=== PATIENT | female | born 1935 | race Caucasian/White ===

== ENCOUNTER 2016-08-11 15:42 | Inpatient (IN) | payer MEDICARE, OTHER ==
[~2016-08-11] VITALS: Ht 149.9 cm; Wt 60.4 kg
[2016-08-11] VITALS (8 sets, daily range): BP systolic 113–139; BP diastolic 40–54; PULSE 60–82; RESP 16–20; TEMP 96.4–98.4; O2SAT 95–100
[~2016-08-11 15:42] MED LIST: BROV15NE NEB; COUM7.5T PO; FURO1TAB93 PO; FURO20TA PO; IRONTAB5 PO; MONT10 PO; OMEP20CA5 PO; PRAV40 PO; RAMI2.5C29 PO; SERT-132 PO; SPIR25 PO; TRAM50TA PO
[2016-08-11] MEDS ORDERED: FERR325T PO (16:18)
[2016-08-11] MEDS ORDERED: PRAV20TA2 PO (16:18)
[2016-08-11] MEDS ORDERED: SPIR25TA PO (16:18)
[2016-08-11] MEDS ORDERED: APIX2.5T PO (16:18)
[2016-08-11] MEDS ORDERED: RAMI2.5C PO (16:18)
[2016-08-11] MEDS ORDERED: OMEP20TA PO (16:18)
[2016-08-11] MEDS ORDERED: SERT-132 PO (16:18)
--- NOTE | 2016-08-11 16:19 | PD ---
HPI Chief Complaint: Abnormal Results Time Seen by Provider: 16:09 Travel History International Travel<30 days: No Contact w/Intl Traveler<30days: No Traveled to known affect area: No History of Present Illness HPI 81-year-old female with history of multiple medical issues, nursing notes reviewed, CHF, lymphoma, COPD, presents to the ER sent in by Dr. Zamudio for ongoing worsening of dyspnea on exertion and shortness of breath, and lab work today showing low sodium of 119. She states she has been little jittery but denies any chest pains, fevers, or any other symptoms. Family states that they had recently changed her diuretics from furosemide to a new med. Symptoms worsen with movement and walking. Modifying Factors: None Associated Signs & Symptoms: Low sodium, shortness of breath Risk Factors: CHF and COPD history PFSH Past Medical History Hx Anticoagulant Therapy: Yes (ELIQUIS) Arthritis: Yes (ELBOWS) Asthma: No Blood Disorders: No Depression: Yes Heart Rhythm Problems: Yes Cancer: Yes (LYMPHOMA) Cardiovascular Problems: Yes (HTN) High Cholesterol: No Chemotherapy: Yes Chest Pain: Yes (HEAVINESS) Congestive Heart Failure: Yes (PACEMAKER) COPD: Yes Cerebrovascular Accident: No Coronary Artery Disease: Yes Diabetes: No Diminished Hearing: No Endocrine: No Gastrointestinal Disorders: No GERD: Yes (resolved) Glaucoma: No Genitourinary: Yes (DRIBBLING WITH COUGH) Headaches: Yes Hepatitis: No Hiatal Hernia: No Hypertension: Yes Immune Disorder: No Implanted Vascular Access Dvce: Yes Kidney Stones: No Musculoskeletal: Yes (BILATERAL HIP REPLACEMENT) Neurologic: No Psychiatric: No Reproductive: Yes (BILATERAL OVARIES REMOVAL) Respiratory: Yes (ASTHMA, COPD) Integumentary: No Migraines: No Radiation Therapy: No Renal Failure: No Seizures: No Sleep Apnea: No Thyroid Disease: No Ulcer: No Influenza Vaccination: Yes ?: Not Menopausal: Yes Past Surgical History Abdominal Surgery: Yes (GALLBLADDER REMOVED, APPENDIX REMOVED, ) Appendectomy: Yes Body Medical Devices: PACEMAKER, BILATERAL HIP REPLACEMENT, PORT Cardiac Surgery: Yes (REPAIR OF HEART VALVE) Cholecystectomy: Yes Coronary Artery Bypass Graft: Yes (2007) Eye Surgery: Yes (BILATERAL CATARACTS) Gynecologic Surgery: Yes (OVARY AND TUBE REMOVED) Hysterectomy: Yes Joint Replacement: Yes Pacemaker: Yes Thoracic Surgery: Yes (VALVE) Other Surgery: Yes (RIGHT PORT, GALL BLADDER, HIP) Social History Alcohol Use: No Tobacco Use: No Substance Use: No Allergies-Medications (Allergen,Severity, Reaction): Coded Allergies: Sulfa (Verified Allergy, Severe, SWELLING, 08/11/16) Reported Meds & Prescriptions Reported Meds & Active Scripts Active Reported Spironolactone 25 Mg Tab 25 Mg PO BIDPC Sertraline (Sertraline HCl) 50 Mg Tab 50 Mg PO DAILY Ramipril 2.5 Mg Cap 2.5 Mg PO DAILY Pravastatin 20 Mg Tab 20 Mg PO DAILY Omeprazole 20 Mg Tab 20 Mg PO EVERY OTHER DAY Ferrous Sulfate 325 Mg Tab 325 Mg PO BID Eliquis (Apixaban) 2.5 Mg Tab 2.5 Mg PO BID Review of Systems Except as stated in HPI: all other systems reviewed are Neg Physical Exam Narrative GENERAL: Well-nourished, well-developed elderly white female patient in no acute distress at rest. Awake and oriented 3. SKIN: Warm and dry. HEAD: Normocephalic. EYES: No scleral icterus. No injection or drainage. NECK: Supple, trachea midline. CARDIOVASCULAR: Regular rate and rhythm without murmurs, gallops, or rubs. RESPIRATORY: Breath sounds equal with breath sounds bilaterally. Mild accessory muscle use. GASTROINTESTINAL: Abdomen soft, non-tender, nondistended. MUSCULOSKELETAL: No cyanosis. Bilateral lower leg swelling of the legs. BACK: Nontender without obvious deformity. No CVA tenderness. Data Data Last Documented VS Vital Signs Date Time Temp Pulse Resp B/P Pulse Ox O2 Delivery O2 Flow Rate FiO2 08/11/16 16:08 95 Room Air 08/11/16 16:08 82 18 139/40 08/11/16 15:49 97.9 Orders Complete Blood Count With Diff (08/11/16 16:09) Comprehensive Metabolic Panel (08/11/16 16:09) Magnesium (Mg) (08/11/16 16:09) B-Type Natriuretic Peptide (08/11/16 16:13) Chest, Single Ap (08/11/16 16:13) Labs Laboratory Tests Test 08/11/16 17:03 White Blood Count 6.4 TH/MM3 Red Blood Count 3.60 MIL/MM3 Hemoglobin 8.2 GM/DL Hematocrit 25.9 % Mean Corpuscular Volume 71.8 FL Mean Corpuscular Hemoglobin 22.7 PG Mean Corpuscular Hemoglobin 31.5 % Concent Red Cell Distribution Width 18.3 % Platelet Count 267 TH/MM3 Mean Platelet Volume 6.6 FL Neutrophils (%) (Auto) 77.1 % Lymphocytes (%) (Auto) 11.1 % Monocytes (%) (Auto) 10.4 % Eosinophils (%) (Auto) 1.2 % Basophils (%) (Auto) 0.2 % Neutrophils # (Auto) 4.9 TH/MM3 Lymphocytes # (Auto) 0.7 TH/MM3 Monocytes # (Auto) 0.7 TH/MM3 Eosinophils # (Auto) 0.1 TH/MM3 Basophils # (Auto) 0.0 TH/MM3 CBC Comment DIFF FINAL Differential Comment Sodium Level 125 MEQ/L Potassium Level 4.6 MEQ/L Chloride Level 91 MEQ/L Carbon Dioxide Level 23.1 MEQ/L Anion Gap 11 MEQ/L Blood Urea Nitrogen 24 MG/DL Creatinine 1.00 MG/DL Estimat Glomerular Filtration 53 ML/MIN Rate Random Glucose 110 MG/DL Calcium Level 7.6 MG/DL Magnesium Level 2.1 MG/DL Total Bilirubin 0.6 MG/DL Aspartate Amino Transf 8 U/L (AST/SGOT) Alanine Aminotransferase 7 U/L (ALT/SGPT) Alkaline Phosphatase 86 U/L B-Type Natriuretic Peptide 910 PG/ML Total Protein 5.5 GM/DL Albumin 3.0 GM/DL MDM Medical Decision Making Medical Screen Exam Complete: Yes Emergency Medical Condition: Yes Medical Record Reviewed: Yes Interpretation(s) EKG shows a ventricularly paced rhythm at a rate of 61 bpm. Laboratory Tests Test 08/11/16 17:03 Red Blood Count 3.60 MIL/MM3 (4.00-5.30) Hemoglobin 8.2 GM/DL (11.6-15.3) Hematocrit 25.9 % (35.0-46.0) Mean Corpuscular Volume 71.8 FL (80.0-100.0) Mean Corpuscular Hemoglobin 22.7 PG (27.0-34.0) Mean Corpuscular Hemoglobin 31.5 % Concent (32.0-36.0) Red Cell Distribution Width 18.3 % (11.6-17.2) Mean Platelet Volume 6.6 FL (7.0-11.0) Neutrophils (%) (Auto) 77.1 % (16.0-70.0) Monocytes (%) (Auto) 10.4 % (0.0-8.0) Lymphocytes # (Auto) 0.7 TH/MM3 (1.0-4.8) Sodium Level 125 MEQ/L (136-145) Chloride Level 91 MEQ/L (98-107) Blood Urea Nitrogen 24 MG/DL (7-18) Estimat Glomerular Filtration 53 ML/MIN (>89) Rate Random Glucose 110 MG/DL (74-106) Calcium Level 7.6 MG/DL (8.5-10.1) Aspartate Amino Transf 8 U/L (15-37) (AST/SGOT) Alanine Aminotransferase 7 U/L (10-53) (ALT/SGPT) B-Type Natriuretic Peptide 910 PG/ML (0-100) Total Protein 5.5 GM/DL (6.4-8.2) Albumin 3.0 GM/DL (3.4-5.0) Differential Diagnosis Dyspnea on exertion, jitteriness, leg swelling, low sodiumrule out other blood flight abnormalities, dehydration, versus metabolic issues versus CHF versus pneumonia Narrative Course EKG shows paced rhythm. Chest x-rays showing signs of CHF. BNP is 900. Her sodium is 125. 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 She apparently has had problems with outpatient management. He has which are from Lasix to spironolactone. At this point, the case was discussed with Dr. Cleaning for admission. Diagnosis Primary Impression: CHF exacerbation Additional Impression: Hyponatremia Admitting Information Admitting Physician Requests: Admit Lucia Cleaning MD Aug 11, 2016 16:19
--- NOTE | 2016-08-11 17:03 | RADHPO ---
EXAM DATE/TIME: 08/11/2016 16:28 [facility] COMPARISON: CHEST SINGLE AP, March 31, 2016, 12:56. INDICATIONS : Shortness of breath. MEDICAL HISTORY : Hypertension. Congestive heart failure. Chronic obstructive pulmonary disease. CAD, Irregular hea rtbeat, Asthma, Arthritis, Lymphoma SURGICAL HISTORY : Pacemaker. Cholecystectomy. Appendectomy. CABG, Hysterectomy, Bilateral hip replacements, Infuse-A-Po rt ENCOUNTER: Initial ACUITY: 3 months PAIN SCORE: 0/10 LOCATION: Bilateral chest FINDINGS: Median sternotomy wires are noted status post cardiac surgery. The heart is enlarged. Moderate pulmon janae vascular congestion is noted bilaterally. A right internal jugular Boupjn-l-Mctw has its tip in t he superior vena cava. Cardiac valve replacement is again noted. Left subclavian pacemaker has its t ip in the right ventricle. CONCLUSION: 1. Moderate pulmonary vascular congestion bilaterally. 2. Cardiomegaly. Kike Cedillo MD on August 11, 2016 at 17:00 Board Certified Radiologist. This report was verified electronically.
[2016-08-11 17:06] LABS: AUTOMATED NEUTROPHIL # 4.9 TH/MM3 (1.8-7.7); BASOPHIL % 0.2 % (0.0-2.0); EOSINOPHIL # 0.1 TH/MM3 (0-0.4); EOSINOPHIL % 1.2 % (0.0-4.0); HEMATOCRIT 25.9 % (35.0-46.0); LYMPH % 11.1 % (9.0-44.0); LYMPHOCYTE # 0.7 TH/MM3 (1.0-4.8); MEAN CELL VOLUME 71.8 FL (80.0-100.0); MEAN CORPUSCULAR HEMOGLOBIN 22.7 PG (27.0-34.0); MEAN CORPUSCULAR HGB CONC 31.5 % (32.0-36.0); MONO % 10.4 % (0.0-8.0); NEUT % 77.1 % (16.0-70.0); PLATELET COUNT 267 TH/MM3 (150-450); RED CELL DISTRIBUTION WIDTH 18.3 % (11.6-17.2); WHITE BLOOD COUNT 6.4 TH/MM3 (4.0-11.0)
[2016-08-11 17:13] LABS: HEMO FLAGS DIFF FINAL
[2016-08-11 17:15] LABS: CHLORIDE 91 MEQ/L (98-107); POTASSIUM 4.6 MEQ/L (3.5-5.1); SODIUM (NA) 125 MEQ/L (136-145)
[2016-08-11 17:18] LABS: ANION GAP 11 MEQ/L (5-15); BICARBONATE 23.1 MEQ/L (21.0-32.0); BLOOD UREA NITROGEN 24 MG/DL (7-18); MAGNESIUM 2.1 MG/DL (1.5-2.5)
[2016-08-11 17:21] LABS: ALT (GPT) 7 U/L (10-53); AST (GOT) 8 U/L (15-37); GLOMERULAR FILTRATION RATE 53 ML/MIN (>89)
[2016-08-11 17:23] LABS: TOTAL BILIRUBIN ADULT 0.6 MG/DL (0.2-1.0)
[2016-08-11 17:24] LABS: ALKALINE PHOSPHATASE 86 U/L (45-117)
[2016-08-11] MEDS ORDERED: SODIUM CHLORIDE 0.9% FLUSH 5 ML FLUSH IVF PRN (18:15)
[2016-08-11 18:49] LABS: CRENATED RBCS 1+ (NORMAL); KERATOCYTES 1+ (NORMAL); OVALOCYTES 1+ (NORMAL)
[2016-08-11 18:50] LABS: PLATELET ESTIMATE SMEAR NORMAL (NORMAL); PLATELET MORPHOLOGY NORMAL (NORMAL); SCAN/DIFF AUTO DIFF CONFIRMED
[2016-08-12] VITALS (10 sets, daily range): BP systolic 102–162; BP diastolic 50–68; PULSE 61–111; RESP 18–21; TEMP 97–100.6; O2SAT 92–96
[2016-08-12 07:56] LABS: POTASSIUM 4.5 MEQ/L (3.5-5.1)
[2016-08-12 07:59] LABS: BICARBONATE 23.3 MEQ/L (21.0-32.0)
[2016-08-12] MEDS ORDERED: Infusaport/Implanted VAD PRN NS Lock Flush IVF (08:15)
[2016-08-12] MEDS: SODIUM CHLORIDE 0.9% FLUSH 5 ML FLUSH IVF SCH ×2 (09:00→21:51)
[2016-08-12] MEDS ORDERED: FUROSEMIDE 40 MG/4 ML VIAL IVP SCH (09:00)
[2016-08-12] MEDS ORDERED: INFLUENZA VIRUS VACCINE (QUADRIVALENT) 0.5 ML SYR IM ONE (09:00)
[2016-08-12] MEDS ORDERED: TORS20TA PO (09:45)
[2016-08-12] MEDS ORDERED: TORS5TAB2 PO (09:45)
--- NOTE | 2016-08-12 11:14 | HHI.HP ---
[facility] Primary Care Physician Alfonso Tolliver MD Admission Diagnosis CHF exacerbation/hyponatremia Diagnoses: Chief Complaint: Abnormal labs per her primary opening machine cleaner Travel History International Travel<30 Days: No Contact w/Intl Traveler <30 Da: No Traveled to Known Affected Are: No History of Present Illness This patient is a 81-year-old female with a known history of congestive heart failure. Patient was seen by her opening machine cleaner did have labs drawn as an outpatient. Of note her sodium was low and she was told to come to the hospital. Here her sodium is 123 and the patient reports increasing edema, increased shortness of breath and some chest tightness with deep breathing. She has minimal orthopnea. Her lower extremity swelling has improved overnight. Patient has refused Lasix saying that her opening machine cleaner just discontinued her Lasix and put her on torso 8. She does have a history of permanent has Medicare and a mitral valve repair which have been followed by her opening machine cleaner. Patient was no fevers or chills. She has minimal activity at baseline uses a wheelchair or walker at home and does not ambulate more than 20 feet at home. Patient was admitted to the hospital due to signs and symptoms consistent with congestive heart failure. Her chest x-ray on my review does show some basilar congestion her BNP is elevated. Patient also has hyponatremia which is likely due to her CHF. Review of Systems Constitutional: COMPLAINS OF: Fatigue, DENIES: Diaphoretic episodes, Fever, Weight gain, Weight loss, Chills, Dizziness, Change in appetite, Night Sweats Endocrine: DENIES: Abnorml menstrual pattern, Heat/cold intolerance, Polydipsia , Polyuria, Polyphagia Ears, nose, mouth, throat: DENIES: Tinnitus, Hearing loss, Vertigo, Nasal discharge, Oral lesions, Throat pain, Hoarseness, Ear Pain, Running Nose, Epistaxis, Sinus Pain, Toothache, Odynophagia Cardiovascular: COMPLAINS OF: Dyspnea on Exertion, Lower Extremity Edema Gastrointestinal: DENIES: Abdominal pain, Black stools, Bloody stools, Constipation, Diarrhea, Nausea, Vomiting, Difficulty Swallowing, Anorexia Genitourinary: DENIES: Abnormal vaginal bleeding, Dysmenorrhea, Dyspareunia, Sexual dysfunction, Urinary frequency, Urinary incontinence, Urgency, Hematuria , Dysuria, Nocturia, Vaginal discharge Musculoskeletal: DENIES: Joint pain, Muscle aches, Stiffness, Joint Swelling, Back pain, Neck pain Integumentary: DENIES: Abnormal pigmentation, Pruritus, Rash, Nail changes, Breast masses, Breast skin changes, Nipple discharge Hematologic/lymphatic: DENIES: Bruising, Lymphadenopathy Immunologic/allergic: DENIES: Eczema, Urticaria Neurologic: DENIES: Abnormal gait, Headache, Localized weakness, Paresthesias, Seizures, Speech Problems, Tremor, Poor Balance Psychiatric: DENIES: Anxiety, Confusion, Mood changes, Depression, Hallucinations, Agitation, Suicidal Ideation, Homicidal Ideation, Delusions Past Family Social History Past Medical History Congestive heart failure Iron deficiency anemia copd Past Surgical History PPM MV repair Reported Medications Reviewed in the medical record, recently exchanged Lasix for torsemide per her opening machine cleaner Allergies: Coded Allergies: Sulfa (Verified Allergy, Severe, SWELLING, 08/11/16) Active Ordered Medications Reviewed in the medical record Family History Mother at 98) hypertension Sudafed at 93 Social History No tobacco or alcohol dependency, lives with her daughter Physical Exam Vital Signs Vital Signs Date Time Temp Pulse Resp B/P Pulse Ox O2 Delivery O2 Flow Rate FiO2 08/12/16 08:00 97.7 63 19 122/55 92 08/12/16 04:25 97.0 69 20 102/60 95 08/12/16 00:10 97.4 61 18 119/53 94 08/11/16 22:29 95 21 08/11/16 21:15 60 08/11/16 20:52 96.4 61 20 113/46 95 08/11/16 20:32 98.4 62 18 122/50 96 08/11/16 19:13 64 18 135/50 95 Room Air 08/11/16 19:13 Room Air 08/11/16 18:31 61 18 124/54 100 Room Air 08/11/16 16:08 95 Room Air 08/11/16 16:08 82 18 139/40 95 Room Air 08/11/16 15:49 97.9 78 16 137/44 97 Physical Exam GENERAL: This is a well-nourished, well-developed patient, in no apparent distress. SKIN: No rashes, ecchymoses or lesions. Cool and dry. HEAD: Atraumatic. Normocephalic. No temporal or scalp tenderness. EYES: Pupils equal round and reactive. Extraocular motions intact. No scleral icterus. No injection or drainage. ENT: Nose without bleeding, purulent drainage or septal hematoma. Throat without erythema, tonsillar hypertrophy or exudate. Uvula midline. Airway patent. NECK: Trachea midline. No JVD or lymphadenopathy. Supple, nontender, no meningeal signs. CARDIOVASCULAR: Regular rate and rhythm without murmurs, gallops, or rubs. RESPIRATORY: Clear to auscultation. Breath sounds equal bilaterally. No wheezes , rales, or rhonchi. GASTROINTESTINAL: Abdomen soft, non-tender, nondistended. No hepato-splenomegaly , or palpable masses. No guarding. MUSCULOSKELETAL: Extremities without clubbing, cyanosis, or edema. No joint tenderness, effusion, or edema noted. No calf tenderness. Negative Homans sign bilaterally. NEUROLOGICAL: Awake and alert. Cranial nerves II through XII intact. Motor and sensory grossly within normal limits. Five out of 5 muscle strength in all muscle groups. Normal speech. Laboratory Laboratory Tests Test 08/11/16 08/12/16 17:03 06:50 White Blood Count 6.4 Red Blood Count 3.60 Hemoglobin 8.2 Hematocrit 25.9 Mean Corpuscular Volume 71.8 Mean Corpuscular Hemoglobin 22.7 Mean Corpuscular Hemoglobin 31.5 Concent Red Cell Distribution Width 18.3 Platelet Count 267 Mean Platelet Volume 6.6 Neutrophils (%) (Auto) 77.1 Lymphocytes (%) (Auto) 11.1 Monocytes (%) (Auto) 10.4 Eosinophils (%) (Auto) 1.2 Basophils (%) (Auto) 0.2 Neutrophils # (Auto) 4.9 Lymphocytes # (Auto) 0.7 Monocytes # (Auto) 0.7 Eosinophils # (Auto) 0.1 Basophils # (Auto) 0.0 CBC Comment DIFF FINAL Differential Comment AUTO DIFF CONFIRMED Platelet Estimate NORMAL Platelet Morphology Comment NORMAL Basophilic Stippling FAINT Ovalocytes 1+ Crenated Cell 1+ Keratocytes 1+ Sodium Level 125 128 Potassium Level 4.6 4.5 Chloride Level 91 95 Carbon Dioxide Level 23.1 23.3 Anion Gap 11 10 Blood Urea Nitrogen 24 23 Creatinine 1.00 0.98 Estimat Glomerular Filtration 53 54 Rate Random Glucose 110 93 Calcium Level 7.6 7.8 Magnesium Level 2.1 Total Bilirubin 0.6 Aspartate Amino Transf 8 (AST/SGOT) Alanine Aminotransferase 7 (ALT/SGPT) Alkaline Phosphatase 86 B-Type Natriuretic Peptide 910 Total Protein 5.5 Albumin 3.0 Thyroid Stimulating Hormone 3.780 3rd Gen Result Diagram: 08/11/16 1703 08/12/16 0650 Imaging Last Impressions Chest X-Ray 08/11/16 1613 Signed Impressions: Service Date/Time: Thursday, August 11, 2016 16:28 - CONCLUSION: 1. Moderate pulmonary vascular congestion bilaterally. 2. Cardiomegaly. Kike Cedillo MD Assessment and Plan Problem List: (1) CHF exacerbation ICD Code: I50.9 Status: Acute Plan: likely diastolic HF with acute exacerbation Continue patient's home medications Patient education On ACEi, BB, torsemide Echo 2013 reviewed repeat pending (2) Hyponatremia ICD Code: E87.1 Status: Acute Plan: Likely due to fluid imbalance. We'll continue with diuresis and follow clinically (3) Iron deficiency anemia ICD Code: D50.9 Status: Acute Plan: HG stable cont PO iron Physician Certification 2 Midnight Certification Type: Admission for Inpatient Services Order for Inpatient Services The services are ordered in accordance with Medicare regulations or non- Medicare payer requirements, as applicable. In the case of services not specified as inpatient-only, they are appropriately provided as inpatient services in accordance with the 2-midnight benchmark. Estimated LOS (days): 3 3 days is the estimated time the patient will need to remain in the hospital, assuming treatment plan goals are met and no additional complications. Post-Hospital Plan: [facility] Jacki Cleaning MD Aug 12, 2016 11:14
[2016-08-12] MEDS: SPIRONOLACTONE 25 MG TAB PO SCH ×2 (11:50→17:28)
[2016-08-12] MEDS: SERTRALINE HCL 50 MG TAB PO SCH (11:50)
[2016-08-12] MEDS: FERROUS SULFATE 325 MG (65 MG ELEMENTAL IRON) TAB PO SCH ×2 (11:51→21:51)
[2016-08-12] MEDS: APIXABAN 2.5 MG TABLET PO SCH ×2 (11:51→21:51)
[2016-08-12] MEDS: PRAVASTATIN SOD 20 MG TAB PO SCH (11:51)
[2016-08-12] MEDS: TORSEMIDE 20 MG TAB PO SCH (11:51)
[2016-08-12] MEDS: RESP: ALBUTEROL 2.5 MG/IPRATROPIUM 0.5 MG NEB (SCH) NEB ×2 (11:55→20:05)
[2016-08-12] MEDS: RAMIPRIL 2.5 MG CAP PO SCH (14:35)
--- NOTE | 2016-08-12 16:42 | EKG ---
Date Performed: 08/11/2016 Time Performed: 15:56:50 PTAGE: 81 years EKG: Ventricular pacing with underlying atrial fibrillation/flutter Pacemaker rhythm - no furthe r analysis Abnormal ECG PREVIOUS TRACING : 07/20/2014 12.17 Since previous tracing, no significant change noted DOCTOR: Artis Hart Interpretating Date/Time 08/12/2016 16:41:44
[2016-08-13 00:48] VITALS: BP 100/61; PULSE 60; RESP 20; TEMP 98.6; O2SAT 95
[2016-08-13 04:00] VITALS: BP 110/63; PULSE 62; RESP 18; TEMP 98; O2SAT 96
--- NOTE | 2016-08-13 07:09 | HHI.PR ---
Subjective Remarks Patient seen in room in follow up for mild chf exacerbation and hyponatremia Doing well at bedside No SOB, edema better Objective Vitals Vital Signs Date Time Temp Pulse Resp B/P Pulse Ox O2 Delivery O2 Flow Rate FiO2 08/13/16 04:00 98.0 62 18 110/63 96 08/13/16 00:48 98.6 60 20 100/61 95 08/12/16 20:55 98.8 64 18 111/50 93 08/12/16 20:06 96 21 08/12/16 19:59 67 08/12/16 16:47 62 08/12/16 16:00 97.3 62 19 124/50 93 08/12/16 12:00 97.3 65 18 117/50 95 08/12/16 11:58 96 21 08/12/16 08:00 97.7 63 19 122/55 92 I/O 08/12/16 08/12/16 08/12/16 08/13/16 08/13/16 08/13/16 07:00 15:00 23:00 07:00 15:00 23:00 Intake Total 720 ml 0 ml Output Total 450 ml Balance 720 ml -450 ml Intake Oral 720 ml IV Total 0 ml 0 ml Output Urine Total 450 ml # Voids 7 # Bowel Movements 2 Result Diagram: 08/11/16 1703 08/12/16 0650 Objective Remarks GENERAL: This is a well-nourished, well-developed patient, in no apparent distress. CARDIOVASCULAR: Regular rate and rhythm without murmurs, gallops, or rubs. RESPIRATORY: Clear to auscultation. Breath sounds equal bilaterally. No wheezes , rales, or rhonchi. GASTROINTESTINAL: Abdomen soft, non-tender, nondistended. Normal active bowel sounds MUSCULOSKELETAL: Extremities without clubbing, cyanosis, +1 edema. NEURO: Alert & Oriented x4 to person, place, time, situation. Moves all ext x4 A/P Problem List: (1) CHF exacerbation ICD Code: I50.9 Status: Acute Plan: likely diastolic HF with acute exacerbation Continue patient's home medications Patient education On ACEi, BB, torsemide Echo pending TSH low, T3/4 pending (2) Hyponatremia ICD Code: E87.1 Status: Acute Plan: improved Likely due to fluid imbalance. We'll continue with diuresis and follow clinically (3) Iron deficiency anemia ICD Code: D50.9 Status: Acute Plan: HG stable, outpatient follow up with Dr Lisa wick PO iron Discharge Planning d/c home, echo/labs pending Jacki Cleaning MD Aug 13, 2016 07:09
[2016-08-13] MEDS: RESP: ALBUTEROL 2.5 MG/IPRATROPIUM 0.5 MG NEB (SCH) NEB (07:36)
[2016-08-13 07:37] VITALS: O2SAT 92
[2016-08-13 08:00] VITALS: BP 122/48; PULSE 62; RESP 17; TEMP 97.2; O2SAT 93
[2016-08-13] MEDS: SODIUM CHLORIDE 0.9% FLUSH 5 ML FLUSH IVF SCH (08:17)
[2016-08-13] MEDS: SPIRONOLACTONE 25 MG TAB PO SCH (08:26)
[2016-08-13] MEDS: RAMIPRIL 2.5 MG CAP PO SCH (08:27)
[2016-08-13] MEDS: APIXABAN 2.5 MG TABLET PO SCH (08:27)
[2016-08-13] MEDS: SERTRALINE HCL 50 MG TAB PO SCH (08:27)
[2016-08-13] MEDS: FERROUS SULFATE 325 MG (65 MG ELEMENTAL IRON) TAB PO SCH (08:27)
[2016-08-13] MEDS: TORSEMIDE 20 MG TAB PO SCH (08:27)
[2016-08-13] MEDS: PRAVASTATIN SOD 20 MG TAB PO SCH (08:27)
[2016-08-13 08:57] LABS: POTASSIUM 3.9 MEQ/L (3.5-5.1)
[2016-08-13 09:00] LABS: BICARBONATE 24.3 MEQ/L (21.0-32.0)
[2016-08-13 10:51] LABS: FREE T3 1.99 PG/ML (2.18-3.98); THYROXINE (T4) 6.2 MCG/DL (4.8-13.9)
[2016-08-13 12:00] VITALS: BP 109/51; PULSE 65; RESP 18; TEMP 97; O2SAT 96
[2016-08-13 16:00] VITALS: BP 110/35; PULSE 62; RESP 16; TEMP 97.2; O2SAT 92
--- NOTE | 2016-08-13 16:22 | EC ---
Study Study Date:08/13/2016 STUDY CONCLUSIONS SUMMARY - Left ventricle: The cavity size was normal. Wall thickness was increased in a pattern of moderate LVH. Systolic function was normal. The estimated ejection fraction was in the range of 60% to 65%. Wall motion was normal; there were no regional wall motion abnormalities. - Aortic valve: Transvalvular velocity was increased. There was mild stenosis. Mild to moderate regurgitation. Mean gradient: 18mm Hg (S). Valve area: 1.8cm^2(VTI). Valve area: 1.79cm^2 (Vmax). - Mitral valve: Severely calcified annulus. Moderately thickened, moderately calcified leaflets, . Mild regurgitation. Valve area by pressure half-time: 2.06cm^2. - Left atrium: A bright echo density is seen on the free-wall that I believe is most likely reverberation artifact from the very heavily calcified mitral and aortic valves. The atrium was moderately dilated. - Right ventricle: The cavity size was mildly dilated. Wall thickness was normal. - Tricuspid valve: Mild regurgitation. - Pulmonary arteries: Systolic pressure was severely increased. PA peak pressure: 88mm Hg (S). If LV function is below 40, please consider prescribing an ACEI or ARB or document rationale for non-use. PROCEDURE DATA STUDY STATUS: Elective. Procedure: Transthoracic echocardiography. Image quality was good. Scanning was performed from the parasternal, apical, and subcostal acoustic windows. Study completion: The patient tolerated the procedure well. Transthoracic echocardiography. M-mode, complete 2D, complete spectral Doppler, and color Doppler. Patient status: Inpatient. CARDIAC ANATOMY LEFT VENTRICLE: The cavity size was normal. Wall thickness was increased in a pattern of moderate LVH. Systolic function was normal. The estimated ejection fraction was in the range of 60% to 65%. Wall motion was normal; there were no regional wall motion abnormalities. AORTIC VALVE: Trileaflet; mildly thickened, moderately calcified leaflets. Doppler: Transvalvular velocity was increased. There was mild stenosis. Mild to moderate regurgitation. Valve area: 1.8cm^2(VTI). Valve area: 1.79cm^2 (Vmax). Mean gradient: 18mm Hg (S). Peak gradient: 36mm Hg (S). AORTA: Aortic root: The aortic root was normal in size. MITRAL VALVE: Severely calcified annulus. Moderately thickened, moderately calcified leaflets, . Doppler: Transvalvular velocity was within the normal range. There was no evidence for stenosis. Mild regurgitation. Valve area by pressure half-time: 2.06cm^2. LEFT ATRIUM: A bright echo density is seen on the free-wall that I believe is most likely reverberation artifact from the very heavily calcified mitral and aortic valves. The atrium was moderately dilated. RIGHT VENTRICLE: The cavity size was mildly dilated. Wall thickness was normal. Pacer wire or catheter noted in right ventricle. PULMONIC VALVE: Doppler: Transvalvular velocity was within the normal range. There was no evidence for stenosis. No regurgitation. TRICUSPID VALVE: Structurally normal valve. Doppler: Transvalvular velocity was within the normal range. Mild regurgitation. PULMONARY ARTERY: The main pulmonary artery was normal-sized. Systolic pressure was severely increased. RIGHT ATRIUM: The atrium was normal in size. PERICARDIUM: There was no pericardial effusion. SYSTEMIC VEINS: Inferior vena cava: The vessel was normal in size. BASIC MEASUREMENTS ADULT Normal Left ventricle LV internal dimension, ED, chordal level, 44.7 mm 43-52 PLAX LV internal dimension, ES, chordal level, 31.5 mm 23-38 PLAX Fractional shortening, chordal level, PLAX 30 % >29 LV posterior wall thickness, ED 12.6 mm IVS/LVPW ratio, ED *1.44 <1.3 Ventricular septum Septal thickness, ED 18.1 mm Aortic valve Leaflet separation *13 mm 15-26 Right ventricle RV internal dimension, ED, PLAX 32.2 mm 19-38 BASIC MEASUREMENTS ADULT Normal Aortic valve Leaflet separation *13 mm 15-26 Aorta Root diameter, ED 31 mm 20-37 Left atrium Anterior-posterior dimension, ES *54 mm 19-40 LA/aortic root ratio 1.74 DOPPLER MEASUREMENTS ADULT Normal Main pulmonary artery Pressure, S *88 mm Hg =30 Aortic valve Peak velocity, S 298 cm/s Mean velocity, S 202 cm/s VTI, S 66.5 cm Mean gradient, S 18 mm Hg Peak gradient, S 36 mm Hg Valve area, VTI 1.8 cm^2 Valve area, Vmax 1.79 cm^2 Regurgitant velocity, ED 363 cm/s Regurgitant deceleration 2010 cm/s^2 Regurgitant pressure half-time 529 ms Regurgitant gradient, ED 53 mm Hg Mitral valve Pressure half-time 107 ms Valve area, pressure half-time 2.06 cm^2 Tricuspid valve Regurgitant peak velocity 442 cm/s Peak RV-RA gradient, S 78 mm Hg Maximal regurgitant velocity 442 cm/s Systemic veins Estimated CVP 10 mm Hg Right ventricle RV pressure, S *88 mm Hg <30 LEGEND: Mean values are shown as u=mean value. Asterisk (*) vincent values outside specified normal range. Prepared and signed by Artis Hart [id number]
--- NOTE | 2016-08-13 16:46 | HHI.DCPOC ---
Discharge Care Plan Diagnosis: (1) CHF exacerbation (2) Iron deficiency anemia (3) Hyponatremia Goals to Promote Your Health * To prevent worsening of your condition and complications * To maintain your health at the optimal level Directions to Meet Your Goals Take your medications as prescribed Follow your dietary instruction Follow activity as directed Keep your appointments as scheduled Take your immunizations and boosters as scheduled If your symptoms worsen call your PCP, if no PCP go to Urgent Care Center or Emergency Room Smoking is Dangerous to Your Health. Avoid second hand smoke Call the 24-hour hour crisis hotline for domestic abuse at Jacki Cleaning MD Aug 13, 2016 16:46
[2016-08-14] MEDS ORDERED: PANTOPRAZOLE SOD 20 MG DELAYED RELEASE TAB PO SCH (09:00)
== END 2016-08-13 17:34 | disposition home or self-care (01) | DRG 292 ==
LOC: PHED 15:42 → PHEDA 18:14 → PH3A 20:39
PROVIDERS: ADMIT Hospitalist; ATTEND Hospitalist
DX: I50.33 Acute on chronic diastolic (congestive) heart failure (principal); E87.1 Hypo-osmolality and hyponatremia; J44.9 Chronic obstructive pulmonary disease, unspecified; E87.8 Other disorders of electrolyte and fluid balance, not elsewhere classified; I25.10 Atherosclerotic heart disease of native coronary artery without angina pectoris; J45.909 Unspecified asthma, uncomplicated; I10 Essential (primary) hypertension; M19.022 Primary osteoarthritis, left elbow; M19.021 Primary osteoarthritis, right elbow; D50.9 Iron deficiency anemia, unspecified; I08.0 Rheumatic disorders of both mitral and aortic valves; Z96.643 Presence of artificial hip joint, bilateral; Z95.1 Presence of aortocoronary bypass graft; Z88.2 Allergy status to sulfonamides; Z88.8 Allergy status to other drugs, medicaments and biological substances; Z23 Encounter for immunization; Z85.72 Personal history of non-Hodgkin lymphomas; Z95.0 Presence of cardiac pacemaker
CPT/HCPCS: 71010; 80048; 80053; 83735; 83880; 84436; 84443; 84481; 85025; 90471; 90686; 93005; 93306; 94640; 94664; 99285; G0008; J1642; Q2038

== ENCOUNTER 2016-09-01 17:26 | Observation (INO) | payer MEDICARE, OTHER ==
[~2016-09-01] VITALS: Ht 147.3 cm; Wt 60.0 kg
[~2016-09-01 17:26] MED LIST changes: +APIX2.5T PO; -BROV15NE NEB; -COUM7.5T PO; +FERR325T PO; -FURO1TAB93 PO; -FURO20TA PO; -IRONTAB5 PO; -MONT10 PO; -OMEP20CA5 PO; +OMEP20TA PO; +PRAV20TA2 PO; -PRAV40 PO; +RAMI2.5C PO; -RAMI2.5C29 PO; -SPIR25 PO; +SPIR25TA PO; +TORS20TA PO; +TORS5TAB2 PO; -TRAM50TA PO
[2016-09-01 17:31] VITALS: BP 169/67; PULSE 88; RESP 28; TEMP 97.8; O2SAT 95
[2016-09-01 17:35] VITALS: BP 145/66; PULSE 61; RESP 18; O2SAT 95
[2016-09-01] MEDS ORDERED: METO5TAB3 PO (17:45)
[2016-09-01] MEDS ORDERED: FUROSEMIDE 40 MG/4 ML VIAL IV PUSH ONE (17:45)
[2016-09-01] MEDS ORDERED: ALBU0.08 NEB (17:45)
[2016-09-01 18:06] LABS: AUTOMATED NEUTROPHIL # 5.5 TH/MM3 (1.8-7.7); BASOPHIL % 0.2 % (0.0-2.0); EOSINOPHIL # 0.1 TH/MM3 (0-0.4); EOSINOPHIL % 1.5 % (0.0-4.0); HEMATOCRIT 26.9 % (35.0-46.0); LYMPH % 12.8 % (9.0-44.0); LYMPHOCYTE # 0.9 TH/MM3 (1.0-4.8); MEAN CELL VOLUME 74.6 FL (80.0-100.0); MEAN CORPUSCULAR HEMOGLOBIN 23.6 PG (27.0-34.0); MEAN CORPUSCULAR HGB CONC 31.6 % (32.0-36.0); MONO % 10.5 % (0.0-8.0); PLATELET COUNT 209 TH/MM3 (150-450); RED CELL DISTRIBUTION WIDTH 19.7 % (11.6-17.2); WHITE BLOOD COUNT 7.3 TH/MM3 (4.0-11.0)
[2016-09-01 18:28] LABS: BICARBONATE 25.6 MEQ/L (21.0-32.0); POTASSIUM 4.3 MEQ/L (3.5-5.1)
[2016-09-01 18:41] LABS: HEMO FLAGS AUTO DIFF
[2016-09-01 18:43] LABS: KERATOCYTES OCC (NORMAL); OVALOCYTES 1+ (NORMAL); PLATELET ESTIMATE SMEAR NORMAL (NORMAL); PLATELET MORPHOLOGY NORMAL (NORMAL); SCAN/DIFF AUTO DIFF CONFIRMED; TEARDROP RBCS 1+ (NORMAL)
[2016-09-01 18:44] LABS: ACANTHOCYTES 1+ (NORMAL)
--- NOTE | 2016-09-01 18:57 | PD ---
Data Data Last Documented VS Vital Signs Date Time Temp Pulse Resp B/P Pulse Ox O2 Delivery O2 Flow Rate FiO2 09/01/16 17:45 65 18 96 Nasal Cannula 3 09/01/16 17:35 145/66 09/01/16 17:31 97.8 Orders Electrocardiogram (09/01/16 17:41) Complete Blood Count With Diff (09/01/16 17:41) Basic Metabolic Panel (Bmp) (09/01/16 17:41) B-Type Natriuretic Peptide (09/01/16 17:41) Chest, Single Ap (09/01/16 17:41) Iv Access Insert/Monitor (09/01/16 17:41) Ecg Monitoring (09/01/16 17:41) Oximetry (09/01/16 17:41) Furosemide Inj (Lasix Inj) (09/01/16 17:45) Labs Laboratory Tests Test 09/01/16 17:50 White Blood Count 7.3 TH/MM3 Red Blood Count 3.60 MIL/MM3 Hemoglobin 8.5 GM/DL Hematocrit 26.9 % Mean Corpuscular Volume 74.6 FL Mean Corpuscular Hemoglobin 23.6 PG Mean Corpuscular Hemoglobin 31.6 % Concent Red Cell Distribution Width 19.7 % Platelet Count 209 TH/MM3 Mean Platelet Volume 7.1 FL Neutrophils (%) (Auto) 75.0 % Lymphocytes (%) (Auto) 12.8 % Monocytes (%) (Auto) 10.5 % Eosinophils (%) (Auto) 1.5 % Basophils (%) (Auto) 0.2 % Neutrophils # (Auto) 5.5 TH/MM3 Lymphocytes # (Auto) 0.9 TH/MM3 Monocytes # (Auto) 0.8 TH/MM3 Eosinophils # (Auto) 0.1 TH/MM3 Basophils # (Auto) 0.0 TH/MM3 CBC Comment AUTO DIFF Differential Comment AUTO DIFF CONFIRMED Platelet Estimate NORMAL Platelet Morphology Comment NORMAL Tear Drop Cells 1+ Ovalocytes 1+ Acanthocytes 1+ Keratocytes OCC Sodium Level 127 MEQ/L Potassium Level 4.3 MEQ/L Chloride Level 92 MEQ/L Carbon Dioxide Level 25.6 MEQ/L Anion Gap 9 MEQ/L Blood Urea Nitrogen 25 MG/DL Creatinine 1.30 MG/DL Estimat Glomerular Filtration 39 ML/MIN Rate Random Glucose 91 MG/DL Calcium Level 8.2 MG/DL [facility] Supervised Visit with JASMINE: Yes Narrative Course I, Dr. Sweet, have reviewed the advance practice practioner's documentation and am in agreement, met with the patient face to face, made the diagnosis, and the medical decision making was done by me. *My assessment and Findings: Patient is a 81-year-old female with history of diastolic heart failure who presents the emergency department with complaint of shortness of breath. Patient was hospitalized for CHF exacerbation in early August. Despite being on 3 diuretics and compliant with this she has had progressive shortness of breath and dyspnea on exertion, exercise fatigue. She is sleeping with multiple pillows at night. She notes lower extremity edema but has not noticed any significant weight change. No chest pain. Patient has decreased lung sounds in the bases on exam and 2+ peripheral edema but no evidence of cellulitis. Twelve-lead EKG is paced rhythm similar to patient's previous. Portable chest x-ray obtained that by my read shows cardiomegaly with pulmonary vascular congestion and previous sternotomy and valve replacement. Laboratory workup notable for baseline anemia and hyponatremia. BNP is pending the patient treated with Lasix and patient will be admitted for further management of her CHF exacerbation. Diagnosis Primary Impression: CHF exacerbation Qualified Code: I50.33 - Acute on chronic diastolic congestive heart failure Crystal Sweet MD Sep 01, 2016 18:57
[2016-09-01 19:07] VITALS: BP 133/59; PULSE 63; RESP 20; O2SAT 97
--- NOTE | 2016-09-01 19:46 | PD ---
HPI Chief Complaint: Respiratory Symptoms Time Seen by Provider: 19:40 Travel History International Travel<30 days: No Contact w/Intl Traveler<30days: No Traveled to known affect area: No History of Present Illness HPI 81-year-old female that presents to the ED for evaluation of shortness of breath for the past couple of days. Patient has a chronic history of CHF. Patient apparently has a history of diastolic heart heart failure. Patient was actually admitted just a month ago for evaluation of similar. Per patient she' s been gaining weight as well as getting more fluid in her system. Per patient she follows with Dr. rivero who has put her in 3 different diuretics and it seems that her symptoms are not improving. Patient apparently had some blood work done earlier this week and today the receive a call from the shake loader as stated in The sodium was a little low and the recommended some changes in her medication. The daughter mentioned to the nurse that patient was having more shortness of breath and that she was getting more fluid and they recommended changing her medications. Because of patient's symptoms and worsening the recommended that the patient comes here. Patient denies any chest pain. Per patient she gets short of breath with just laying but also with exertion. She states that she is compliant with her medications. She does take liquids for A. fib. Allergy to sulfa. No abdominal pain. Patient states having some swelling on her legs. PFSH Past Medical History Hx Anticoagulant Therapy: Yes (ELIQUIS) Arthritis: Yes (ELBOWS) Asthma: No Blood Disorders: No Depression: Yes Heart Rhythm Problems: Yes Cancer: Yes (LYMPHOMA) Cardiovascular Problems: Yes (CHF) High Cholesterol: No Chemotherapy: Yes (LYMPHOMA) Chest Pain: Yes (HEAVINESS) Congestive Heart Failure: Yes (PACEMAKER) COPD: Yes Cerebrovascular Accident: No Coronary Artery Disease: Yes Diabetes: No Diminished Hearing: No Endocrine: No Gastrointestinal Disorders: No GERD: Yes (resolved) Glaucoma: No Genitourinary: Yes (DRIBBLING WITH COUGH) Headaches: Yes Hepatitis: No Hiatal Hernia: No Hypertension: Yes Immune Disorder: No Implanted Vascular Access Dvce: Yes Kidney Stones: No Musculoskeletal: Yes (BILATERAL HIP REPLACEMENT) Neurologic: No Psychiatric: No Reproductive: Yes (BILATERAL OVARIES REMOVAL) Respiratory: Yes (COPD) Integumentary: No Migraines: No Radiation Therapy: No Renal Failure: No Seizures: No Sleep Apnea: No Thyroid Disease: No Ulcer: No Tetanus Vaccination: Unknown Influenza Vaccination: Yes Menopausal: Yes Past Surgical History Abdominal Surgery: Yes (GALLBLADDER REMOVED, APPENDIX REMOVED, ) Appendectomy: Yes Body Medical Devices: PACEMAKER, BILATERAL HIP REPLACEMENT, PORT Cardiac Surgery: Yes (REPAIR OF HEART VALVE) Cholecystectomy: Yes Coronary Artery Bypass Graft: Yes (2007) Eye Surgery: Yes (BILATERAL CATARACTS) Gynecologic Surgery: Yes (OVARY AND TUBE REMOVED) Hysterectomy: Yes Joint Replacement: Yes Pacemaker: Yes Thoracic Surgery: Yes (VALVE) Other Surgery: Yes (RIGHT PORT, GALL BLADDER, HIP) Social History Alcohol Use: No Tobacco Use: No Substance Use: No Allergies-Medications (Allergen,Severity, Reaction): Coded Allergies: Sulfa (Verified Allergy, Severe, SWELLING, 09/01/16) Reported Meds & Prescriptions Reported Meds & Active Scripts Active Reported Albuterol Neb (Albuterol Sulfate) 2.5 Mg/3 Ml Neb 2.5 Mg NEB ONCE Metolazone 5 Mg Tab 5 Mg PO DAILY Torsemide 20 Mg Tab 20 Mg PO DAILY Torsemide 5 Mg Tab 5 Mg PO DAILY Spironolactone 25 Mg Tab 25 Mg PO BIDPC Sertraline (Sertraline HCl) 50 Mg Tab 50 Mg PO DAILY Ramipril 2.5 Mg Cap 0.5 Tab PO DAILY Pravastatin 20 Mg Tab 20 Mg PO DAILY Omeprazole 20 Mg Tab 20 Mg PO EVERY OTHER DAY Ferrous Sulfate 325 Mg Tab 325 Mg PO BID Eliquis (Apixaban) 2.5 Mg Tab 2.5 Mg PO BID Review of Systems General / Constitutional: No: Fever, Chills, Weight Gain, Weight Loss, Other Eyes: No: Diploplia, Blurred Vision, Photophobia, Drainage, Redness, Foreign Body Sensation, Pain, Tearing, Blind Spots, Visual changes, Blindness, Other HENT: No: Headaches, Vertigo, Lightheadedness, Sore Throat, Rhinitis, Rhinorrhea, Congestion, Nosebleed, Neck Stiffness, Neck Pain, Masses, Gingival Bleeding, Dental Difficulties, Ear Discharge, Earache, Other Cardiovascular: Positive: Edema, No: Chest Pain or Discomfort, Palpitations, Irregular Rhythm, Tachycardia, Diaphoresis, Syncope, Dyspnea on exertion, Varicosities, Cyanosis, Varicosities, Phlebitis, Claudication, Other Respiratory: Positive: Shortness of Breath, Orthopnea, No: Cough, Wheezing, Sneezing, Hemoptysis, Stridor, Night Sweats, Pleuritic Pain, Other Gastrointestinal: No: Nausea, Vomiting, Diarrhea, Abdominal Pain, Hematemesis, Hematochezia, Constipation, Changes in Bowel Habits, Indigestion, Dysphagia, Loss of Appetite, Other Genitourinary: No: Urgency, Frequency, Dysuria, Nocturia, Hematuria, Decreased Urinary Output, Oliguria, Hesitancy, Dribbling, Incontinence, Pelvic Pain, Flank Pain, Dyspareunia, Discharge, Dysmenorrhea, Menorrhagia, Metorrhagia, Vaginal Bleeding, Other Musculoskeletal: No: Myalgias, Arthralgias, Limited ROM, Weakness, Cramping, Edema, Pain, Atrophy, Other Skin: No Rash, No Itching, No Dryness, No Lumps, No Hives, No Change in Pigmentation, No Change in nails, No Alopecia, No Lesions, No Breast Lumps, No Breast Tenderness, No Breast Swelling, No Other Neurologic: No: Weakness, Dizziness, Syncope, Focal Abnormalities, Coordination Problem, Tremor, Ataxia, Headache, Change in Mentation, Slurred Speech, Paresthesia, Incontinence, Seizures, Sensory Disturbance, Other Psychiatric: No: Anxiety, Depression, Suicidal Ideations, Disorder of Thought, Mood Disorder, Substance Abuse, Homicidal Ideation, Other Endocrine: No: Heat Intolerance, Cold Intolerance, Polyuria, Polydipsia, Other Hematologic/Lymphatic: No: Easy Bruising, Lymph Node Enlargement, Other Physical Exam Narrative GENERAL: SKIN: Warm and dry. HEAD: Atraumatic. Normocephalic. EYES: Pupils equal and round. No scleral icterus. No injection or drainage. ENT: No nasal bleeding or discharge. Mucous membranes pink and moist. Tongue is midline. No uvula deviation. NECK: Trachea midline. No JVD. CARDIOVASCULAR: Regular rate and rhythm. No murmurs, S3, S4. RESPIRATORY: No accessory muscle use. Rales heard in the lower lung perez. Breath sounds equal bilaterally. GASTROINTESTINAL: Abdomen soft, non-tender, nondistended. Hepatic and splenic margins not palpable. MUSCULOSKELETAL: Extremities without clubbing, cyanosis. No obvious deformities. Full range of motion of the upper and lower extremities bilaterally. 2+ pulses bilaterally. Patient has bilateral 2+ pitting edema in the lower extremities. NEUROLOGICAL: Awake and alert. No obvious cranial nerve deficits. Motor grossly within normal limits. Five out of 5 muscle strength in the arms and legs. Normal speech. PSYCHIATRIC: Appropriate mood and affect; insight and judgment normal. Data Data Last Documented VS Vital Signs Date Time Temp Pulse Resp B/P Pulse Ox O2 Delivery O2 Flow Rate FiO2 09/01/16 19:07 63 20 133/59 97 Nasal Cannula 2 09/01/16 17:31 97.8 Orders Electrocardiogram (09/01/16 17:41) Complete Blood Count With Diff (09/01/16 17:41) Basic Metabolic Panel (Bmp) (09/01/16 17:41) B-Type Natriuretic Peptide (09/01/16 17:41) Chest, Single Ap (09/01/16 17:41) Iv Access Insert/Monitor (09/01/16 17:41) Ecg Monitoring (09/01/16 17:41) Oximetry (09/01/16 17:41) Furosemide Inj (Lasix Inj) (09/01/16 17:45) Admit Order (Ed Use Only) (09/01/16 19:32) Labs Laboratory Tests Test 09/01/16 17:50 White Blood Count 7.3 TH/MM3 Red Blood Count 3.60 MIL/MM3 Hemoglobin 8.5 GM/DL Hematocrit 26.9 % Mean Corpuscular Volume 74.6 FL Mean Corpuscular Hemoglobin 23.6 PG Mean Corpuscular Hemoglobin 31.6 % Concent Red Cell Distribution Width 19.7 % Platelet Count 209 TH/MM3 Mean Platelet Volume 7.1 FL Neutrophils (%) (Auto) 75.0 % Lymphocytes (%) (Auto) 12.8 % Monocytes (%) (Auto) 10.5 % Eosinophils (%) (Auto) 1.5 % Basophils (%) (Auto) 0.2 % Neutrophils # (Auto) 5.5 TH/MM3 Lymphocytes # (Auto) 0.9 TH/MM3 Monocytes # (Auto) 0.8 TH/MM3 Eosinophils # (Auto) 0.1 TH/MM3 Basophils # (Auto) 0.0 TH/MM3 CBC Comment AUTO DIFF Differential Comment AUTO DIFF CONFIRMED Platelet Estimate NORMAL Platelet Morphology Comment NORMAL Tear Drop Cells 1+ Ovalocytes 1+ Acanthocytes 1+ Keratocytes OCC Sodium Level 127 MEQ/L Potassium Level 4.3 MEQ/L Chloride Level 92 MEQ/L Carbon Dioxide Level 25.6 MEQ/L Anion Gap 9 MEQ/L Blood Urea Nitrogen 25 MG/DL Creatinine 1.30 MG/DL Estimat Glomerular Filtration 39 ML/MIN Rate Random Glucose 91 MG/DL Calcium Level 8.2 MG/DL B-Type Natriuretic Peptide 760 PG/ML MDM Medical Decision Making Medical Screen Exam Complete: Yes Emergency Medical Condition: Yes Medical Record Reviewed: Yes Interpretation(s) CBC & BMP Diagram 09/01/16 17:50 BNP in the 500s Chest x-ray shows cardiomegaly with pulmonary edema Differential Diagnosis CHF exacerbation versus pulmonary edema versus fluid overload versus dyspnea Narrative Course 81-year-old female that presents to the ED for evaluation of CHF exacerbation. Patient was properly examined and was found to have signs and symptoms consistent with CHF exacerbation. Labs and imaging were ordered. Labs and imaging: From the diagnosis. Patient was given IV Lasix. Case discussed with my attending Dr. Stover who evaluated the patient with me and recommends admission. I spoke with Dr. Samuel from the wrestling team who agrees to admission. Patient was admitted. This was discussed with family and patient who both agree with admission. Diagnosis Primary Impression: CHF exacerbation Qualified Code: I50.33 - Acute on chronic diastolic congestive heart failure Admitting Information Admitting Physician Requests: Observation Lokesh Hsieh Sep 01, 2016 19:46
[2016-09-01 20:30] VITALS: BP 148/59; PULSE 71; RESP 22; O2SAT 99
--- NOTE | 2016-09-01 20:41 | HHI.HP ---
HPI Service Family Medicine Primary Care Physician Alfonso Tolliver MD Admission Diagnosis CHF exacerbation Diagnoses: International Travel<30 Days: No Contact w/Intl Traveler<30days: No Known Affected Area: No History of Present Illness Patient is an 81-year-old female with a PMH significant for COPD, CHF, iron deficiency anemia, A. fib/flutter?. Presented to the ED today due to progressively worsening shortness of breath and lower extremity edema. She spoke with her corporate account executive office about her symptoms and recommended further evaluation in the ED. Of note patient was recently admitted 1 month ago for similar symptoms which she was also treated with IV Lasix. Echo was done at that time which showed an EF of 6065%. Mild stenosis of the aortic valve. Severely calcified annulus of mitral valve. Patient reports that the shortness of breath has progressively worsened over the last 2 weeks. She is scheduled to see a corporate account executive in [place] who is to do a transesophageal echocardiogram and possible heart catheterization in the next few weeks. Patient otherwise denies any other symptoms. -Since being in the ED and treated with IV Lasix, patient feels much better. ( Blanca Sequeira MD R2) Review of Systems Cardiovascular: COMPLAINS OF: Lower Extremity Edema, Orthopnea Other ROS negative 10 except for history of present illness and lower extremity edema , SOB, orthopnea. (Blanca Sequeira MD R2) Past Family Social History Past Medical History Congestive heart failure Iron deficiency anemia-due to small bleed in GI tract that is chronic COPD Lymphoma-remission Atrial fibrillation/flutter? Past Surgical History Pacemaker MV repair Hip surgeries total replacements bilaterally x6 Appendectomy Cholecystectomy 1 tube and ovary removed Port placement Reported Medications Reported Meds & Active Scripts Active Reported Albuterol Neb (Albuterol Sulfate) 2.5 Mg/3 Ml Neb 2.5 Mg NEB ONCE Metolazone 5 Mg Tab 5 Mg PO DAILY Torsemide 20 Mg Tab 20 Mg PO DAILY Torsemide 5 Mg Tab 5 Mg PO DAILY Spironolactone 25 Mg Tab 25 Mg PO BIDPC Sertraline (Sertraline HCl) 50 Mg Tab 50 Mg PO DAILY Ramipril 2.5 Mg Cap 0.5 Tab PO DAILY Pravastatin 20 Mg Tab 20 Mg PO DAILY Omeprazole 20 Mg Tab 20 Mg PO EVERY OTHER DAY Ferrous Sulfate 325 Mg Tab 325 Mg PO BID Eliquis (Apixaban) 2.5 Mg Tab 2.5 Mg PO BID (Blanca Sequeira MD R2) Allergies: Coded Allergies: Sulfa (Verified Allergy, Severe, SWELLING, 09/01/16) Family History Mother: lived to 98 Sister to 92-93. All pretty healthy Social History Lives with daughter and son in law Tobacco: denies Alcohol: Denies Illicit: Denies (Blanca Sequeira MD R2) Physical Exam Vital Signs Vital Signs Date Time Temp Pulse Resp B/P Pulse Ox O2 Delivery O2 Flow Rate FiO2 09/01/16 20:30 71 22 148/59 99 Nasal Cannula 2 09/01/16 19:07 63 20 133/59 97 Nasal Cannula 2 09/01/16 17:45 65 18 96 Nasal Cannula 3 09/01/16 17:45 99 Nasal Cannula 3 09/01/16 17:35 61 18 145/66 95 09/01/16 17:31 97.8 88 28 169/67 95 Room Air Physical Exam GENERAL: This is a well-nourished, well-developed patient, in no apparent distress. Sitting comfortably in bed. SKIN: No rashes, ecchymoses or lesions. Cool and dry. Palpable port on right upper chest. Palpable pacemaker on left upper chest EYES: Pupils equal round and reactive. Extraocular motions intact. No scleral icterus. No injection or drainage. ENT: Nose without bleeding, purulent drainage. Throat without erythema, tonsillar hypertrophy or exudate. NECK: No JVD or lymphadenopathy. CARDIOVASCULAR: Regular rate and rhythm without murmurs, gallops, or rubs. RESPIRATORY: Good air movement bilaterally. Clear to auscultation. No wheezes, rales, or rhonchi. GASTROINTESTINAL: Abdomen soft, non-tender, nondistended. No hepato-splenomegaly , or palpable masses. No guarding. MUSCULOSKELETAL: Extremities without clubbing, cyanosis. 1+ pitting edema up to lower shins bilaterally. No calf tenderness. NEUROLOGICAL: Awake and alert. Motor and sensory grossly within normal limits. Normal speech. Laboratory Laboratory Tests Test 09/01/16 17:50 White Blood Count 7.3 Red Blood Count 3.60 Hemoglobin 8.5 Hematocrit 26.9 Mean Corpuscular Volume 74.6 Mean Corpuscular Hemoglobin 23.6 Mean Corpuscular Hemoglobin 31.6 Concent Red Cell Distribution Width 19.7 Platelet Count 209 Mean Platelet Volume 7.1 Neutrophils (%) (Auto) 75.0 Lymphocytes (%) (Auto) 12.8 Monocytes (%) (Auto) 10.5 Eosinophils (%) (Auto) 1.5 Basophils (%) (Auto) 0.2 Neutrophils # (Auto) 5.5 Lymphocytes # (Auto) 0.9 Monocytes # (Auto) 0.8 Eosinophils # (Auto) 0.1 Basophils # (Auto) 0.0 CBC Comment AUTO DIFF Differential Comment AUTO DIFF CONFIRMED Platelet Estimate NORMAL Platelet Morphology Comment NORMAL Tear Drop Cells 1+ Ovalocytes 1+ Acanthocytes 1+ Keratocytes OCC Sodium Level 127 Potassium Level 4.3 Chloride Level 92 Carbon Dioxide Level 25.6 Anion Gap 9 Blood Urea Nitrogen 25 Creatinine 1.30 Estimat Glomerular Filtration 39 Rate Random Glucose 91 Calcium Level 8.2 B-Type Natriuretic Peptide 760 (Blanca Sequeira MD R2) Result Diagram: 09/01/16 1750 09/01/16 175 Imaging Last Impressions Chest X-Ray 09/01/16 1741 Signed Impressions: Service Date/Time: Thursday, September 01, 2016 17:42 - CONCLUSION: Cardiomegaly with mild vascular congestion and interstitial prominence. Chris Rose MD (Blanca Sequeira MD R2) Assessment and Plan Assessment and Plan 81-year-old female with a PMH significant for COPD, CHF, iron deficiency anemia , A. fib/flutter?. Admitted for CHF exacerbation Code Status Full (Blanca Sequeira MD R2) Problem List: (1) CHF exacerbation Status: Acute Plan: Progressively worsening shortness of breath and lower extremity edema. Associated with orthopnea. BMP elevated at 760. Has had a good response in relation to respiratory status after IV Lasix. Echo from 08/2016 shows EF of 60- 65%. CXR significant for mild vascular congestion and interstitial prominence -EKG shows ventricularly paced rhythm -Continue diuresis with Lasix IV 40 mg daily -Continue home diuretics (25 mg torsemide daily, spironolactone 25 mg twice a day) -Fluid and salt restriction (2) Hyponatremia Status: Acute Plan: Hyponatremia of 127. In the setting of CHF exacerbation, will continue fluid restriction to help with sodium level. (3) COPD (chronic obstructive pulmonary disease) Status: Acute Plan: Albuterol and Duonebs as needed (4) Atrial flutter Status: Chronic Plan: Currently rate controlled Continue Eliquis (5) Nutrition, metabolism, and development symptoms Status: Acute Plan: Diet: Heart healthy with 2 g salt restriction, 1.5 L fluid restriction Electrolytes: See above Fluids: None DVT prophylaxis: Continue home Eliquis GI prophylaxis: Not indicated (Blanca Sequeira MD R2) Problem Qualifiers (1) CHF exacerbation: Qualified Code: I50.33 - Acute on chronic diastolic congestive heart failure (2) COPD (chronic obstructive pulmonary disease): Qualified Code: J44.9 - Chronic obstructive pulmonary disease, unspecified COPD type (3) Atrial flutter: Qualified Code: I48.92 - Atrial flutter, unspecified type Blanca Sequeira MD R2 Sep 01, 2016 20:41 Yuliana Cruz MD Sep 02, 2016 15:10 (3) Atrial flutter: Qualified Code: I48.92 - Atrial flutter, unspecified type Blanca Sequeira MD R2 Sep 01, 2016 20:41 Yuliana Cruz MD Sep 02, 2016 15:10
[2016-09-01] MEDS ORDERED: SODIUM CHLORIDE 0.9% FLUSH 5 ML FLUSH IVF PRN (21:30)
[2016-09-01] MEDS ORDERED: ENALAPRILAT 1.25 MG/ML VIAL IV PRN (21:45)
[2016-09-01 21:47] VITALS: O2SAT 97
[2016-09-01] MEDS: APIXABAN 2.5 MG TABLET PO SCH (22:09)
--- NOTE | 2016-09-01 23:13 | RADRPT ---
EXAM DATE/TIME: 09/01/2016 17:42 [facility] COMPARISON: CHEST SINGLE AP, August 11, 2016, 16:28. INDICATIONS : Chest pain. MEDICAL HISTORY : Hypertension. SURGICAL HISTORY : CABG. Pacemaker. ENCOUNTER: Initial ACUITY: 1 day PAIN SCORE: 6/10 LOCATION: chest FINDINGS: Pacemaker device is noted with control pack over the left chest. Right chest port is stable in good p osition. The cardiac silhouette is enlarged and stable mediastinal contours. There is mild central va scular congestion and interstitial prominence which appears grossly unchanged. No evidence of alveola r consolidation or significant effusion. Previous sternotomy and valve replacement. CONCLUSION: Cardiomegaly with mild vascular congestion and interstitial prominence. Chris Rose MD on September 01, 2016 at 23:10 Board Certified Radiologist. This report was verified electronically.
[2016-09-01 23:31] VITALS: BP 136/60; PULSE 64; RESP 20; TEMP 97.4; O2SAT 99
[2016-09-02] VITALS (9 sets, daily range): BP systolic 107–141; BP diastolic 51–67; PULSE 60–64; RESP 16–20; TEMP 97.1–98.7; O2SAT 90–99
[2016-09-02] MEDS ORDERED: RESP: ALBUTEROL 2.5 MG/IPRATROPIUM 0.5 MG NEB (PRN) INH (01:00)
[2016-09-02] MEDS ORDERED: RESP: ALBUTEROL 2.5 MG/3 ML NEB (PRN) INH (01:00)
[2016-09-02 07:19] LABS: HEMATOCRIT 24.3 % (35.0-46.0); MEAN CELL VOLUME 73.6 FL (80.0-100.0); MEAN CORPUSCULAR HEMOGLOBIN 23.2 PG (27.0-34.0); MEAN CORPUSCULAR HGB CONC 31.6 % (32.0-36.0); PLATELET COUNT 194 TH/MM3 (150-450); RED CELL DISTRIBUTION WIDTH 19.9 % (11.6-17.2)
[2016-09-02 07:26] LABS: REVIEW FLAG FINAL
[2016-09-02 07:30] LABS: BICARBONATE 25.2 MEQ/L (21.0-32.0); MAGNESIUM 2.1 MG/DL (1.5-2.5); POTASSIUM 4.3 MEQ/L (3.5-5.1)
[2016-09-02] MEDS: APIXABAN 2.5 MG TABLET PO SCH ×2 (08:18→21:23)
[2016-09-02] MEDS: SODIUM CHLORIDE 0.9% FLUSH 5 ML FLUSH IVF SCH ×2 (08:18→21:23)
[2016-09-02] MEDS: SPIRONOLACTONE 25 MG TAB PO SCH ×2 (08:18→21:23)
[2016-09-02] MEDS: SERTRALINE HCL 50 MG TAB PO SCH (08:19)
[2016-09-02] MEDS ORDERED: FUROSEMIDE 40 MG/4 ML VIAL IV PUSH SCH (09:00)
[2016-09-02] MEDS ORDERED: TORSEMIDE 5 MG TAB PO SCH (09:00)
[2016-09-02] MEDS ORDERED: SPIRONOLACTONE 25 MG TAB PO SCH (09:00)
[2016-09-02] MEDS ORDERED: TORSEMIDE 20 MG TAB PO SCH (09:00)
--- NOTE | 2016-09-02 09:48 | HHI.HP ---
[facility] Service Family Medicine Primary Care Physician Alfonso Tolliver MD Admission Diagnosis CHF exacerbation Diagnoses: (1) CHF exacerbation Diagnosis: Principal (2) Hyponatremia Diagnosis: Secondary (3) COPD (chronic obstructive pulmonary disease) Diagnosis: Principal (4) Atrial flutter Diagnosis: Principal (5) Nutrition, metabolism, and development symptoms Diagnosis: Principal International Travel<30 Days: No Contact w/Intl Traveler<30days: No Known Affected Area: No History of Present Illness Ms Berman is an 81-year-old female with a PMH significant for COPD, CHF, iron deficiency anemia, A. fib/flutter?. Presented to the ED yesterday due to progressively worsening shortness of breath and lower extremity edema. She spoke with her guard immigration's office about her symptoms and recommended further evaluation in the ED. Of note patient was recently admitted 1 month ago for similar symptoms which she was also treated with IV Lasix. Echo was done at that time which showed an EF of 60-65%. Mild stenosis of the aortic valve. Severely calcified annulus of mitral valve. Patient reports that the shortness of breath has progressively worsened over the last 2 weeks. She is scheduled to see a guard immigration in [place] who is to do a transesophageal echocardiogram and possible heart catheterization in the next few weeks. Patient otherwise denies any other symptoms. -Since being in the ED and treated with IV Lasix, patient felt much better. However, overnight she developed more SOB and is not back to her baseline today. She complains of continued SOB and was pursed lip breathing when I was in her room. She is still not able to lie flat today. Review of Systems Other Cardiovascular: COMPLAINS OF: Lower Extremity Edema, Orthopnea Other ROS negative 10 except for history of present illness and lower extremity edema , SOB, orthopnea. Past Family Social History Past Medical History Congestive heart failure Iron deficiency anemia-due to small bleed in GI tract that is chronic COPD Lymphoma-remission Atrial fibrillation/flutter? Past Surgical History Pacemaker MV repair Hip surgeries total replacements bilaterally x6 Appendectomy Cholecystectomy 1 tube and ovary removed Port placement Allergies: Coded Allergies: Sulfa (Verified Allergy, Severe, SWELLING, 09/01/16) Family History Mother: lived to 98 Sister to 92-93. All pretty healthy Social History Lives with daughter and son in law Tobacco: denies Alcohol: Denies Illicit: Denies Physical Exam Vital Signs Vital Signs Date Time Temp Pulse Resp B/P Pulse Ox O2 Delivery O2 Flow Rate FiO2 09/02/16 07:42 97.8 60 16 107/51 98 09/02/16 03:52 98.0 63 20 115/61 99 09/02/16 00:44 60 09/01/16 23:31 97.4 64 20 136/60 99 09/01/16 21:47 97 Nasal Cannula 2.00 09/01/16 20:30 71 22 148/59 99 Nasal Cannula 2 09/01/16 19:07 63 20 133/59 97 Nasal Cannula 2 09/01/16 17:45 65 18 96 Nasal Cannula 3 09/01/16 17:45 99 Nasal Cannula 3 09/01/16 17:35 61 18 145/66 95 09/01/16 17:31 97.8 88 28 169/67 95 Room Air Physical Exam GENERAL: This is a well-nourished, well-developed patient, in no apparent distress. Sitting propped in bed but pursed lip breathing and able to speak in full sentences. SKIN: No rashes, ecchymoses or lesions. Cool and dry. Palpable port on right upper chest. Palpable pacemaker on left upper chest EYES: Pupils equal round and reactive. Extraocular motions intact. No scleral icterus. No injection or drainage. ENT: Nose without bleeding, purulent drainage. Throat without erythema, tonsillar hypertrophy or exudate. NECK: No JVD or lymphadenopathy. CARDIOVASCULAR: Regular rate and rhythm without murmurs, gallops, or rubs. RESPIRATORY: Good air movement bilaterally. Clear to auscultation. No wheezes, rales, or rhonchi. GASTROINTESTINAL: Abdomen soft, non-tender, nondistended. No hepato-splenomegaly , or palpable masses. No guarding. MUSCULOSKELETAL: Extremities without clubbing, cyanosis. 1+ pitting edema up to lower shins bilaterally. No calf tenderness. NEUROLOGICAL: Awake and alert. Motor and sensory grossly within normal limits. Normal speech. Laboratory Laboratory Tests Test 09/01/16 09/02/16 17:50 06:21 White Blood Count 7.3 6.0 Red Blood Count 3.60 3.30 Hemoglobin 8.5 7.7 Hematocrit 26.9 24.3 Mean Corpuscular Volume 74.6 73.6 Mean Corpuscular Hemoglobin 23.6 23.2 Mean Corpuscular Hemoglobin 31.6 31.6 Concent Red Cell Distribution Width 19.7 19.9 Platelet Count 209 194 Mean Platelet Volume 7.1 7.3 Neutrophils (%) (Auto) 75.0 Lymphocytes (%) (Auto) 12.8 Monocytes (%) (Auto) 10.5 Eosinophils (%) (Auto) 1.5 Basophils (%) (Auto) 0.2 Neutrophils # (Auto) 5.5 Lymphocytes # (Auto) 0.9 Monocytes # (Auto) 0.8 Eosinophils # (Auto) 0.1 Basophils # (Auto) 0.0 CBC Comment AUTO DIFF Differential Comment AUTO DIFF CONFIRMED Platelet Estimate NORMAL Platelet Morphology Comment NORMAL Tear Drop Cells 1+ Ovalocytes 1+ Acanthocytes 1+ Keratocytes OCC Sodium Level 127 130 Potassium Level 4.3 4.3 Chloride Level 92 95 Carbon Dioxide Level 25.6 25.2 Anion Gap 9 10 Blood Urea Nitrogen 25 28 Creatinine 1.30 1.30 Estimat Glomerular Filtration 39 39 Rate Random Glucose 91 91 Calcium Level 8.2 8.3 B-Type Natriuretic Peptide 760 Magnesium Level 2.1 Result Diagram: 09/02/16 0621 09/02/16 0621 Imaging Last Impressions Chest X-Ray 09/01/16 1741 Signed Impressions: Service Date/Time: Thursday, September 01, 2016 17:42 - CONCLUSION: Cardiomegaly with mild vascular congestion and interstitial prominence. Chris Rose MD Assessment and Plan Assessment and Plan 81-year-old female with a PMH significant for COPD, CHF, iron deficiency anemia , A. fib/flutter?. Admitted for CHF exacerbation Problem List: (1) CHF exacerbation Status: Acute Plan: Progressively worsening shortness of breath and lower extremity edema. Associated with orthopnea. BMP elevated at 760. Has had a good response in relation to respiratory status after IV Lasix 40 mg once in ED. Echo from 2016 shows EF of 60-65%. CXR significant for mild vascular congestion and interstitial prominence -EKG shows ventricularly paced rhythm -Continue diuresis with Lasix IV 40 mg daily, increase to BID as she is more SOB this am. Can consider adjusting Zaroxoln/metolazone 5 mg if needed for diuresis but increasing the lasix to BID should hopefully do the job -Continue home diuretics -25 mg torsemide daily (likely not as effective as lasix iv so will hold for now) , spironolactone 25 mg twice a day -Fluid and salt restriction -some elements of her history are not completely clear. 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 Can consult if she worsens and will need close follow up and contact with their office Is and Os and daily weights (2) Hyponatremia Status: Acute Plan: Hyponatremia of 127 now 130. In the setting of CHF exacerbation, will continue fluid restriction to help with sodium level. A low sodium is very common with CHF and can improve with diuretics as well as fluid restriction (3) COPD (chronic obstructive pulmonary disease) Status: Acute Plan: Albuterol and Duonebs as needed (4) Atrial flutter Status: Chronic Plan: Currently rate controlled Continue Eliquis (5) Nutrition, metabolism, and development symptoms Status: Acute Plan: Diet: Heart healthy with 2 g salt restriction, 1.5 L fluid restriction Electrolytes: See above Fluids: None DVT prophylaxis: Continue home Eliquis GI prophylaxis: Not indicated Problem Qualifiers (1) CHF exacerbation: Qualified Code: I50.33 - Acute on chronic diastolic congestive heart failure (2) COPD (chronic obstructive pulmonary disease): Qualified Code: J44.9 - Chronic obstructive pulmonary disease, unspecified COPD type (3) Atrial flutter: Qualified Code: I48.92 - Atrial flutter, unspecified type Yuliana Cruz MD Sep 02, 2016 09:48
[2016-09-02] MEDS ORDERED: INFLUENZA VIRUS VACCINE (QUADRIVALENT) 0.5 ML SYR IM ONE (10:00)
[2016-09-02] MEDS: FUROSEMIDE 40 MG/4 ML VIAL IV PUSH SCH (16:45)
--- NOTE | 2016-09-02 19:11 | EKG ---
Date Performed: 09/01/2016 Time Performed: 17:58:40 PTAGE: 81 years EKG: ELECTRONIC VENTRICULAR PACEMAKER Since previous tracing, no significant change noted ABNORM AL RHYTHM ECG PREVIOUS TRACING : 08/11/2016 15.56 DOCTOR: Rudi Cross Interpretating Date/Time 09/02/2016 19:09:40
[2016-09-03] VITALS: BP 124/68; PULSE 72; RESP 16; TEMP 98.1; O2SAT 97
[2016-09-03 00:11] VITALS: PULSE 61
[2016-09-03 06:01] LABS: BICARBONATE 26.3 MEQ/L (21.0-32.0); POTASSIUM 4.2 MEQ/L (3.5-5.1)
[2016-09-03 07:20] VITALS: BP 119/52; PULSE 61; RESP 16; TEMP 98; O2SAT 98
--- NOTE | 2016-09-03 08:02 | HHI.FPPN ---
Subjective Remarks No acute events overnight. Vital signs unremarkable. This morning patient reports that she feels better and feels like that she can be discharged today. Denies any other complaints. (Blanca Sequeira MD R2) Objective Vitals Vital Signs Date Time Temp Pulse Resp B/P Pulse Ox O2 Delivery O2 Flow Rate FiO2 09/03/16 00:11 61 09/03/16 00:00 98.1 72 16 124/68 97 09/02/16 20:05 98.7 64 18 141/67 98 09/02/16 20:00 99 Nasal Cannula 2.00 09/02/16 15:10 97.1 61 16 125/58 96 09/02/16 15:00 60 09/02/16 12:23 97.1 60 16 124/56 90 I/O 09/02/16 09/02/16 09/02/16 09/03/16 09/03/16 09/03/16 07:00 15:00 23:00 07:00 15:00 23:00 Intake Total 800 ml Output Total 200 ml 1000 ml Balance -200 ml -200 ml Intake Oral 800 ml Output Urine Total 200 ml 1000 ml # Voids 2 (Blanca Sequeira MD R2) Result Diagram: 09/02/16 0621 09/03/16 0503 Objective Remarks GEN: Well-developed, well-nourished patient. No acute distress. Resting comfortably in bed CV: Regular rate and rhythm. Grade 3/6 systolic ejection murmur LUNGS: Good air movement bilaterally. Coarse crackles on the right basilar lung. Normal respiratory effort. EXT: Trace edema on bilateral lower extremities. No calf tenderness. NEURO/PSYCH: Awake, alert. Appropriate insight and judgment. Normal speech ( Blanca Sequeira MD R2) A/P Assessment and Plan 81-year-old female with a PMH significant for COPD, CHF, iron deficiency anemia , A. fib/flutter?. Admitted for CHF exacerbation Discharge Planning Today dw Dr. Cruz (Blanca Sequeira MD R2) Attending Attestation Patient seen and examined. Case reviewed and discussed with the resident team. Agree with plan of care as discussed with me and documented in the resident note. (Yuliana Cruz MD) Problem List: (1) CHF exacerbation Status: Acute Plan: Presented due to progressively worsening shortness of breath and lower extremity edema. Associated with orthopnea. BMP elevated at 760. Has had a good response in relation to respiratory status after IV Lasix. Echo from 2016 shows EF of 60-65%. CXR significant for mild vascular congestion and interstitial prominence. Symptoms have improved today. -EKG shows ventricularly paced rhythm -Lasix IV 40 mg increased to BID which has helped with her symptoms. -Will increase home torsemide to 40 mg daily -Continue home spironolactone 25 mg twice a day -Fluid and salt restriction -Is and Os and daily weights (2) Hyponatremia Status: Acute Plan: Hyponatremia of 127 now 130. In the setting of CHF exacerbation, will continue fluid restriction to help with sodium level. -A low sodium is very common with CHF and can improve with diuretics as well as fluid restriction (3) COPD (chronic obstructive pulmonary disease) Status: Acute Plan: Albuterol and Duonebs as needed (4) Atrial flutter Status: Chronic Plan: Currently rate controlled Continue Eliquis (5) Nutrition, metabolism, and development symptoms Status: Acute Plan: Diet: Heart healthy with 2 g salt restriction, 1.5 L fluid restriction Electrolytes: See above Fluids: None DVT prophylaxis: Continue home Eliquis GI prophylaxis: Not indicated (Blanca Sequeira MD R2) Problem Qualifiers (1) CHF exacerbation: Qualified Code: I50.33 - Acute on chronic diastolic congestive heart failure (2) COPD (chronic obstructive pulmonary disease): Qualified Code: J44.9 - Chronic obstructive pulmonary disease, unspecified COPD type (3) Atrial flutter: Qualified Code: I48.92 - Atrial flutter, unspecified type Blanca Sequeira MD R2 Sep 03, 2016 08:02 Yuliana Cruz MD Sep 09, 2016 13:29
--- NOTE | 2016-09-03 08:06 | HHI.DCPOC ---
Discharge Care Plan Diagnosis: (1) CHF exacerbation (2) Hyponatremia (3) Iron deficiency anemia Goals to Promote Your Health * To prevent worsening of your condition and complications * To maintain your health at the optimal level Directions to Meet Your Goals Take your medications as prescribed Follow your dietary instruction Follow activity as directed Keep your appointments as scheduled Take your immunizations and boosters as scheduled If your symptoms worsen call your PCP, if no PCP go to Urgent Care Center or Emergency Room Smoking is Dangerous to Your Health. Avoid second hand smoke Call the 24-hour hour crisis hotline for domestic abuse at Blanca Sequeira MD R2 Sep 03, 2016 08:05
[2016-09-03] MEDS ORDERED: TORS20TA PO (08:55)
[2016-09-03] MEDS: APIXABAN 2.5 MG TABLET PO SCH (09:08)
[2016-09-03] MEDS: SPIRONOLACTONE 25 MG TAB PO SCH (09:08)
[2016-09-03] MEDS: SERTRALINE HCL 50 MG TAB PO SCH (09:08)
[2016-09-03] MEDS: FUROSEMIDE 40 MG/4 ML VIAL IV PUSH SCH (09:09)
[2016-09-03] MEDS: SODIUM CHLORIDE 0.9% FLUSH 5 ML FLUSH IVF SCH (09:09)
--- NOTE | 2016-09-03 13:48 | HHI.DS ---
Discharge Summary Admission Date Sep 01, 2016 at 19:34 Discharge Date: Sep 03, 2016 Admitting Diagnosis CHF exacerbation (1) CHF exacerbation Plan: Presented due to progressively worsening shortness of breath and lower extremity edema. Associated with orthopnea. BMP elevated at 760. Has had a good response in relation to respiratory status after IV Lasix. Echo from 2016 shows EF of 60-65%. CXR significant for mild vascular congestion and interstitial prominence. Symptoms have improved today. -EKG shows ventricularly paced rhythm -Lasix IV 40 mg increased to BID which has helped with her symptoms. -Will increase home torsemide to 40 mg daily -Continue home spironolactone 25 mg twice a day -Fluid and salt restriction -Is and Os and daily weights (2) Hyponatremia Plan: Hyponatremia of 127 now 130. In the setting of CHF exacerbation, will continue fluid restriction to help with sodium level. -A low sodium is very common with CHF and can improve with diuretics as well as fluid restriction (3) COPD (chronic obstructive pulmonary disease) Plan: Albuterol and Duonebs as needed (4) Atrial flutter Plan: Currently rate controlled Continue Eliquis (5) Nutrition, metabolism, and development symptoms Plan: Diet: Heart healthy with 2 g salt restriction, 1.5 L fluid restriction Electrolytes: See above Fluids: None DVT prophylaxis: Continue home Eliquis GI prophylaxis: Not indicated Brief History Ms Berman is an 81-year-old female with a PMH significant for COPD, CHF, iron deficiency anemia, A. fib/flutter?. Presented to the ED yesterday due to progressively worsening shortness of breath and lower extremity edema. She spoke with her glass forming crew member's office about her symptoms and recommended further evaluation in the ED. Of note patient was recently admitted 1 month ago for similar symptoms which she was also treated with IV Lasix. Echo was done at that time which showed an EF of 60-65%. Mild stenosis of the aortic valve. Severely calcified annulus of mitral valve. Patient reports that the shortness of breath has progressively worsened over the last 2 weeks. She is scheduled to see a glass forming crew member in [place] who is to do a transesophageal echocardiogram and possible heart catheterization in the next few weeks. Patient otherwise denies any other symptoms. -Since being in the ED and treated with IV Lasix, patient felt much better. However, overnight she developed more SOB and is not back to her baseline today. She complains of continued SOB and was pursed lip breathing when I was in her room. She is still not able to lie flat today. CBC/BMP: 09/02/16 0621 09/03/16 0503 Significant Findings Laboratory Tests Test 09/01/16 09/02/16 09/03/16 17:50 06:21 05:03 Red Blood Count 3.60 MIL/MM3 3.30 MIL/MM3 (4.00-5.30) (4.00-5.30) Hemoglobin 8.5 GM/DL 7.7 GM/DL (11.6-15.3) (11.6-15.3) Hematocrit 26.9 % 24.3 % (35.0-46.0) (35.0-46.0) Mean Corpuscular Volume 74.6 FL 73.6 FL (80.0-100.0) (80.0-100.0) Mean Corpuscular Hemoglobin 23.6 PG 23.2 PG (27.0-34.0) (27.0-34.0) Mean Corpuscular Hemoglobin 31.6 % 31.6 % Concent (32.0-36.0) (32.0-36.0) Red Cell Distribution Width 19.7 % 19.9 % (11.6-17.2) (11.6-17.2) Neutrophils (%) (Auto) 75.0 % (16.0-70.0) Monocytes (%) (Auto) 10.5 % (0.0-8.0) Lymphocytes # (Auto) 0.9 TH/MM3 (1.0-4.8) Tear Drop Cells 1+ (NORMAL) Ovalocytes 1+ (NORMAL) Acanthocytes 1+ (NORMAL) Keratocytes OCC (NORMAL) Sodium Level 127 MEQ/L 130 MEQ/L 130 MEQ/L (136-145) (136-145) (136-145) Chloride Level 92 MEQ/L 95 MEQ/L 94 MEQ/L (98-107) (98-107) (98-107) Blood Urea Nitrogen 25 MG/DL (7-18) 28 MG/DL (7-18) 33 MG/DL (7-18) Creatinine 1.30 MG/DL 1.30 MG/DL 1.33 MG/DL (0.50-1.00) (0.50-1.00) (0.50-1.00) Estimat Glomerular Filtration 39 ML/MIN (>89) 39 ML/MIN (>89) 38 ML/MIN (>89) Rate Calcium Level 8.2 MG/DL 8.3 MG/DL 8.1 MG/DL (8.5-10.1) (8.5-10.1) (8.5-10.1) B-Type Natriuretic Peptide 760 PG/ML (0-100) Imaging Last Impressions Chest X-Ray 09/01/16 7071 Signed Impressions: Service Date/Time: Thursday, September 01, 2016 17:42 - CONCLUSION: Cardiomegaly with mild vascular congestion and interstitial prominence. Chris Rose MD PE at Discharge GEN: Well-developed, well-nourished patient. No acute distress. Resting comfortably in bed CV: Regular rate and rhythm. Grade 3/6 systolic ejection murmur LUNGS: Good air movement bilaterally. Coarse crackles on the right basilar lung. Normal respiratory effort. EXT: Trace edema on bilateral lower extremities. No calf tenderness. NEURO/PSYCH: Awake, alert. Appropriate insight and judgment. Normal speech Hospital Course 81-year-old female who presented due to worsening shortness of breath and was directed to the ED per her glass forming crew member. Patient responded well to IV Lasix. Was discharged in stable condition with the increase in her home torsemide. Recommended close follow with her glass forming crew member. Also recommended limiting access fluid intake and excess salt. Pt Condition on Discharge: Stable Discharge Disposition: Discharge Home Discharge Instructions DIET: Follow Instructions for: Heart Healthy Diet, Low Sodium Diet Activities you can perform: Regular-No Restrictions Follow up Referrals: Appointment for Follow Up - 1 Week with Alfonso Tolliver MD Cardiology - 2-3 Days with Brandee Zamudio MD New Medications: Torsemide (Torsemide) 20 Mg Tab 40 MG PO DAILY #60 Ref 0 TAB Continued Medications: Albuterol Neb (Albuterol Neb) 2.5 Mg/3 Ml Neb 2.5 MG NEB ONCE Shortness Of Breath #1 Ref 0 NEBULE Apixaban (Eliquis) 2.5 Mg Tab 2.5 MG PO BID Blood Clot Prevention Ref 0 TAB Ferrous Sulfate (Ferrous Sulfate) 325 Mg Tab 325 MG PO BID Nutritional Supplement #30 Ref 0 TAB Metolazone (Metolazone) 5 Mg Tab 5 MG PO DAILY #30 Ref 0 TAB Omeprazole (Omeprazole) 20 Mg Tab 20 MG PO EVERY OTHER DAY #30 Ref 0 TAB Pravastatin (Pravastatin) 20 Mg Tab 20 MG PO DAILY Cholesterol Management #30 Ref 0 TAB Ramipril (Ramipril) 2.5 Mg Cap 0.5 TAB PO DAILY #30 Ref 0 CAP Sertraline (Sertraline) 50 Mg Tab 50 MG PO DAILY #30 Ref 0 TAB Spironolactone (Spironolactone) 25 Mg Tab 25 MG PO BIDPC #60 Ref 0 TAB Discontinued Medications: Torsemide (Torsemide) 5 Mg Tab 5 MG PO DAILY #30 Ref 0 TAB Torsemide (Torsemide) 20 Mg Tab 20 MG PO DAILY #30 Ref 0 TAB Blanca Sequeira MD R2 Sep 03, 2016 13:48
== END 2016-09-03 13:09 | disposition home or self-care (01) ==
LOC: NEPE 17:26 → NEDA 19:34 → NEPHCDU 23:37
PROVIDERS: ADMIT Family Medicine; ATTEND Family Medicine
DX: I50.33 Acute on chronic diastolic (congestive) heart failure (principal); E87.1 Hypo-osmolality and hyponatremia; J44.9 Chronic obstructive pulmonary disease, unspecified; I48.92 Unspecified atrial flutter; R60.9 Edema, unspecified; R06.01 Orthopnea; I25.10 Atherosclerotic heart disease of native coronary artery without angina pectoris; R06.02 Shortness of breath; M19.90 Unspecified osteoarthritis, unspecified site; Z95.0 Presence of cardiac pacemaker; Z95.1 Presence of aortocoronary bypass graft; Z85.72 Personal history of non-Hodgkin lymphomas; Z79.01 Long term (current) use of anticoagulants
CPT/HCPCS: 71010; 80048; 83735; 83880; 85025; 85027; 93005; 96365; 96374; 97161; 99285; G0378; G8987; G8988; J1940; J7050

== ENCOUNTER 2016-10-18 12:49 | Inpatient (IN) | payer MEDICARE, OTHER ==
[~2016-10-18] VITALS: Ht 147.3 cm; Wt 60.7 kg
[2016-10-18] VITALS (8 sets, daily range): BP systolic 117–132; BP diastolic 51–73; PULSE 61–78; RESP 14–28; TEMP 98–99; O2SAT 97–99
[~2016-10-18 12:49] MED LIST changes: +ALBU0.08 NEB; +METO5TAB3 PO; -TORS5TAB2 PO
--- NOTE | 2016-10-18 13:08 | PD ---
Physical Exam Date Seen by Provider: Oct 18, 2016 Time Seen by Provider: 12:59 Narrative Pt is an 81 year old female presenting to the ED with c/o SOB and edema. SOB started last and she has had increased peripheral edema for 3 weeks. Her lasix dose was increased last but she continues to have swelling and SOB despite this change. Pt was seen by Dr. Roger this morning and was sent to the ED for evaluation. No N/V, fevers, chills. PMHx significant for pulmonary HTN, CHF, COPD, O2 dependant on 2L usually, family increased to 3L. Pt is on Eliquis for MV repair. PCP is Dr. Tolliver. Pt is tachypneic, VS otherwise stable. Pt does not appear to be in any acute distress and is accompanied by daughter. Pt awaiting bed placement. Data Data Last Documented VS Vital Signs Date Time Temp Pulse Resp B/P Pulse Ox O2 Delivery O2 Flow Rate FiO2 10/18/16 12:52 98.4 74 28 118/73 99 Nasal Cannula MDM Supervised Visit with JASMINE: Yes Anitha Moulton Oct 18, 2016 13:08
[2016-10-18] MEDS ORDERED: RAMI2.5C PO (13:25)
[2016-10-18] MEDS ORDERED: SODIUM CHLOR 0.9% 250 ML INJ 250 ML IV ONE ×2 (13:45→16:45)
[2016-10-18] MEDS ORDERED: FUROSEMIDE 40 MG/4 ML VIAL IV PUSH ONE (14:15)
--- NOTE | 2016-10-18 14:15 | PD ---
HPI Chief Complaint: Cardiac Complaint Time Seen by Provider: 14:07 Travel History International Travel<30 days: No Contact w/Intl Traveler<30days: No Traveled to known affect area: No History of Present Illness HPI 81-year-old female that presents to the ED for evaluation of shortness of breath and fluid retention. Patient has a chronic history of CHF, chronic anemia with GI bleed and on anticoagulation, pulmonary hypertension waiting to get heart By a doctor in [place] next month. She comes here presenting of 3 day history of worsening swelling of the legs as well as weight gain and shortness of breath. Per patient she chronically uses oxygen at home. She states that she's been doubling up on her diuretics at home with no improvement. Patient actually follow with her doctor Kana who is her safety and occupational health manager last week for evaluation of something similar and he recommended that she double her diuretics. The patient her symptoms continue and she went to see him today again for a recheck and he recommended that she comes here to get admitted and evaluated. She denies any chest pain today. She does state that she had a pressure on her chest yesterday. She has an allergy to sulfa. She had blood work done today early at this facility. She states that she has no pain at this time and no urinary or bowel movement symptoms other than some bleeding which is chronic for her. The patient her Hemoccult has been positive for almost 6 months and she is have a full workup and apparently the GI bleed is in an area where they cannot reach so for now patient has been treated with iron for the bleeding and follows constantly with GI doctor. She has an allergy to sulfa. She denies any other medical problems. Her equipment records supervisor is Dr. Zamudio. [facility] Past Medical History Hx Anticoagulant Therapy: Yes (ELOQUIS) Arthritis: Yes (ELBOWS) Asthma: No Blood Disorders: No Depression: Yes Heart Rhythm Problems: Yes Cancer: Yes (LYMPHOMA) Cardiovascular Problems: Yes (PULMONARY HTN/MITRAL VALVE REPAIR/CHF) High Cholesterol: No Chest Pain: Yes (HEAVINESS) Congestive Heart Failure: Yes (PACEMAKER) COPD: Yes Cerebrovascular Accident: No Coronary Artery Disease: Yes Diabetes: No Diminished Hearing: No Endocrine: No Gastrointestinal Disorders: No GERD: Yes (resolved) Glaucoma: No Genitourinary: Yes (DRIBBLING WITH COUGH) Headaches: Yes Hepatitis: No Hiatal Hernia: No Hypertension: Yes Immune Disorder: No Implanted Vascular Access Dvce: Yes Kidney Stones: No Musculoskeletal: Yes (BILATERAL HIP REPLACEMENT) Neurologic: No Psychiatric: No Reproductive: Yes (BILATERAL OVARIES REMOVAL) Respiratory: Yes (COPD ON O2 AT ALL TIMES 2-3L NC) Integumentary: No Migraines: No Radiation Therapy: No Renal Failure: No Seizures: No Sleep Apnea: No Thyroid Disease: No Ulcer: No Tetanus Vaccination: < 5 Years Influenza Vaccination: Yes ?: Not Menopausal: Yes Past Surgical History Abdominal Surgery: Yes (GALLBLADDER REMOVED, APPENDIX REMOVED, ) Appendectomy: Yes Body Medical Devices: PACEMAKER, BILATERAL HIP REPLACEMENT, PORT Cardiac Surgery: Yes (REPAIR OF HEART VALVE) Cholecystectomy: Yes Coronary Artery Bypass Graft: Yes (2007) Eye Surgery: Yes (BILATERAL CATARACTS) Gynecologic Surgery: Yes (OVARY AND TUBE REMOVED) Hysterectomy: Yes Joint Replacement: Yes Pacemaker: Yes Thoracic Surgery: Yes (VALVE) Other Surgery: Yes (RIGHT PORT, GALL BLADDER, HIP) Social History Alcohol Use: No Tobacco Use: No Substance Use: No Allergies-Medications (Allergen,Severity, Reaction): Coded Allergies: Sulfa (Verified Allergy, Severe, SWELLING, 10/18/16) Reported Meds & Prescriptions Reported Meds & Active Scripts Active Torsemide 20 Mg Tab 40 Mg PO DAILY Reported Ramipril 2.5 Mg Cap 2.5 Mg PO DAILY Metolazone 5 Mg Tab 5 Mg PO DAILY Spironolactone 25 Mg Tab 25 Mg PO BIDPC Sertraline (Sertraline HCl) 50 Mg Tab 50 Mg PO DAILY Pravastatin 20 Mg Tab 20 Mg PO DAILY Omeprazole 20 Mg Tab 20 Mg PO EVERY OTHER DAY Ferrous Sulfate 325 Mg Tab 325 Mg PO BID Eliquis (Apixaban) 2.5 Mg Tab 2.5 Mg PO BID Review of Systems Except as stated in HPI: all other systems reviewed are Neg Physical Exam Narrative GENERAL: SKIN: Warm and dry. HEAD: Atraumatic. Normocephalic. EYES: Pupils equal and round. No scleral icterus. No injection or drainage. ENT: No nasal bleeding or discharge. Mucous membranes pink and moist. Tongue is midline. No uvula deviation. NECK: Trachea midline. No JVD. CARDIOVASCULAR: Regular rate and rhythm. No murmurs, S3, S4. RESPIRATORY: No accessory muscle use. Rales heard in the lower lung perez.. Breath sounds equal bilaterally. GASTROINTESTINAL: Abdomen soft, non-tender, nondistended. Hepatic and splenic margins not palpable. MUSCULOSKELETAL: Extremities without clubbing, cyanosis, or edema. No obvious deformities. Full range of motion of the upper and lower extremities bilaterally. Patient does have 2+ pitting edema in the lower extremities. 2+ pulses bilaterally. NEUROLOGICAL: Awake and alert. No obvious cranial nerve deficits. Motor grossly within normal limits. Five out of 5 muscle strength in the arms and legs. Normal speech. PSYCHIATRIC: Appropriate mood and affect; insight and judgment normal. Data Data Last Documented VS Vital Signs Date Time Temp Pulse Resp B/P Pulse Ox O2 Delivery O2 Flow Rate FiO2 10/18/16 14:14 63 117/51 98 Nasal Cannula 2 10/18/16 14:00 98.4 14 Orders Electrocardiogram (10/18/16 13:22) B-Type Natriuretic Peptide (10/18/16 13:22) Prothrombin Time / Inr (Pt) (10/18/16 13:22) Act Partial Throm Time (Ptt) (10/18/16 13:22) Chest, Single Ap (10/18/16 ) Type And Screen (10/18/16 13:36) Red Blood Cells (Rbc) (10/18/16 13:36) Blood Product Administration .UPON TRANSFUSION (10/18/16 13:36) Sodium Chlor 0.9% 250 Ml Inj (Ns 250 Ml (10/18/16 13:45) Furosemide Inj (Lasix Inj) (10/18/16 14:15) Admit Order (Ed Use Only) (10/18/16 15:19) Apixaban (Eliquis) (10/18/16 21:00) Ferrous Sulfate (Ferrous Sulfate) (10/18/16 21:00) Metolazone (Zaroxolyn) (10/19/16 09:00) Pravastatin (Pravachol) (10/19/16 09:00) Ramipril (Altace) (10/19/16 09:00) Sertraline (Zoloft) (10/19/16 09:00) Spironolactone (Aldactone) (10/18/16 18:00) Torsemide (Demadex) (10/19/16 09:00) Pantoprazole (Protonix) (10/20/16 09:00) Labs Laboratory Tests Test 10/18/16 10/18/16 13:00 14:00 Urine Color LIGHT-YELLOW Urine Turbidity CLEAR Urine pH 5.0 Urine Specific [place] 1.008 Urine Protein NEG mg/dL Urine Glucose (UA) NEG mg/dL Urine Ketones NEG mg/dL Urine Occult Blood NEG Urine Nitrite NEG Urine Bilirubin NEG Urine Urobilinogen LESS THAN 2.0 MG/DL Urine Leukocyte Esterase TRACE Urine RBC LESS THAN 1 /hpf Urine WBC 2 /hpf Urine Squamous Epithelial 1 /hpf Cells Urine Hyaline Casts 11 /lpf Urine Mucus FEW /lpf Microscopic Urinalysis Comment CULT NOT INDICATED Prothrombin Time 11.5 SEC Prothromb Time International 1.0 RATIO Ratio Activated Partial 62.4 SEC Thromboplast Time B-Type Natriuretic Peptide 735 PG/ML Blood Type O NEGATIVE Antibody Screen NEGATIVE Crossmatch Leukocyte-Reduced Red Blood Cells Blood Bank Comment MDM Medical Decision Making Medical Screen Exam Complete: Yes Emergency Medical Condition: Yes Medical Record Reviewed: Yes Interpretation(s) EKG showed ventricular paced rhythm with no sign of acute ischemia or arrhythmia but by me and attending. CBC from today show RBCs of 2.65, H&H of 6.7 and 21.9, white blood cells of 6.0 , platelets of 228, MCV of 82.7, reticular count of 4.2. BMP of today show sodium of 141, potassium of 5, chloride of 108, carbon dioxide of 21.4, anion gap of 12, BUN of 62, creatinine of 1.50, GFR of 33, glucose of 110, calcium of 8.0 Differential Diagnosis CHF exacerbation versus fluid retention versus anemia versus iron deficiency anemia versus GI bleed versus chronic GI bleed versus pleural effusion Narrative Course 81-year-old female that presents to the ED for evaluation of possible CHF exacerbation. Patient was properly examined and was found to have signs and symptoms consistent with appears to CHF exacerbation. I reviewed her labs from this morning and did show a low hemoglobin of 6.7. Because of this a do recommend RBCs. Patient did have positive Hemoccult. The patient is is chronic. This was discussed in my attending Dr. Martines who evaluated the patient with me and agrees with plan. At this time I ordered a BNP as well as chest x- ray and coags as well as RBCs. Patient was told this and agrees with plan. Patient was given IV Lasix as well. Patient will be admitted for CHF exacerbation as well as anemia requiring transfusion. This was discussed with the family and patient were in agreement with plan. Case discussed with Dr. Garcia who agrees to admission. Diagnosis Primary Impression: CHF exacerbation Qualified Code: I50.9 - Acute on chronic congestive heart failure, unspecified congestive heart failure type Additional Impression: Anemia Qualified Code: D50.0 - Iron deficiency anemia due to chronic blood loss Admitting Information Admitting Physician Requests: Admit Lokesh Hsieh Oct 18, 2016 14:15
--- NOTE | 2016-10-18 14:19 | RADRPT ---
EXAM DATE/TIME: 10/18/2016 13:34 [facility] COMPARISON: CHEST SINGLE AP, September 01, 2016, 17:42. INDICATIONS : Short of breath. MEDICAL HISTORY : Chronic obstructive pulmonary disease. Congestive heart failure. lymphoma 2008 SURGICAL HISTORY : Pacemaker. Mitral valve surgery. ENCOUNTER: Initial ACUITY: 1 day PAIN SCORE: 0/10 LOCATION: Bilateral chest FINDINGS: [id number], pacer and right valve are noted. The heart is enlarged. There is mild interstitial e shelton present. There is no obvious consolidation or pleural effusion. CONCLUSION: Mild congestive failure. Blair Gamble MD FACR on October 18, 2016 at 14:07 Board Certified Radiologist. This report was verified electronically.
[2016-10-18 14:26] LABS: APTT (PATIENT) 62.4 SEC (24.3-30.1); PROTHROMBIN TIME - PATIENT 11.5 SEC (9.8-11.6)
[2016-10-18] MEDS ORDERED: SODIUM CHLORIDE 0.9% FLUSH 10 ML FLUSH IV FLUSH PRN (15:30)
[2016-10-18] MEDS ORDERED: ONDANSETRON HCL 4 MG/2 ML VIAL IVP PRN (15:30)
[2016-10-18] MEDS ORDERED: BISACODYL 10 MG SUPP RECTAL PRN (15:30)
[2016-10-18] MEDS ORDERED: NALOXONE HCL 0.4 MG/ML AMP IV PRN (15:30)
[2016-10-18] MEDS ORDERED: ACETAMINOPHEN 325 MG TAB PO PRN (15:30)
[2016-10-18] MEDS: RESP: IPRATROPIUM 0.5 MG/2.5 ML NEB NEB SCH (16:06)
[2016-10-18 16:13] LABS: BLOOD, URINE NEG (NEG); COMMENT (UR) CULT NOT INDICATED; CULTURE IF INDICATED CULT NOT INDICATED; GLUCOSE,URINE NEG (NEG); HYALINE CAST, URINE 11 /lpf (RARE); KETONE, URINE NEG (NEG); MUCUS URINE FEW /lpf (OCC); NITRITE,URINE NEG (NEG); SQUAMOUS EPITHELIAL CELL URINE 1 /hpf (0-5); URINE COLOR LIGHT-YELLOW (YELLW/STRAW)
--- NOTE | 2016-10-18 16:39 | HHI.HP ---
[facility] Alfonso Tolliver MD Admission Diagnosis CHF exacerbation, symptomatic anemia Diagnoses: Chief Complaint: Increasing shortness of breath, edema Travel History International Travel<30 Days: No Contact w/Intl Traveler <30 Da: No Traveled to Known Affected Are: No History of Present Illness Patient is a pleasant 81-year-old female who has a past medical history of COPD, CHF, iron deficiency anemia, lymphoma, A. fib A flutter on Eliquis who came into the hospital with complaints of increasing bilateral lower extremity edema and shortness of breath. Patient states that she was just recently admitted in August with the same symptoms of worsening edema and shortness of breath. She states that she's been having on and off edema and is on diuretics. However, since last she has increasing shortness of breath and bilateral lower extremity edema that she was told by her allocations clerk Dr. Roger to increase her dose of diuretics. Patient has been on an increased dose but states that is not helping her. She saw Dr. Roger this morning and was told to come to the hospital for further evaluation. Patient recently has undergone cardiac catheterization 09/22/16 in [place] complicated by hematoma in the left thigh area, ultrasound Doppler was negative. She is also being followed by Dr. Conrad and had received blood transfusions 2 in the first week of September, completed 5 doses of IV iron transfusions. Patient states that she has some dark stools but is unknown to her whether she has noted any blood in the stool or not because she is on iron transfusions. Patient has A. fib a flutter on Eliquis 2.5 mg twice a day. States she previously have some gastric bleeding and had an EGD and colonoscopy last year that showed she has some ?bleeding/ulceration. Patient also complains of some chest pressure, dizziness, weakness and headaches. Denies any nausea, vomiting, diarrhea, constipation. Denies any hematuria, dysuria, abdominal cramping or pain. Denies cough, hematemesis, hemoptysis, hematochezia. Denies any fevers, chills, cough, diaphoresis. Patient's H&H 6.7/.9, underlying microcytic anemia, iron deficiency anemia. Chest x-ray showed mild congestive heart failure. BNP 735. Review of Systems Except as stated in HPI: all other systems reviewed are Neg Past Family Social History Past Medical History COPD, on home oxygen CHF Iron deficiency anemia A. fib/A flutter, on Eliquis Lymphoma arthritis pulmonary hypertension Past Surgical History PPM MV repair Hip surgery 6 bilaterally Appendectomy next and cholecystectomy Tube removal and ovary removal Port placement Cataract surgery 09/22/69 in cardiac catheterization Reported Medications Reported Meds & Active Scripts Active Torsemide 20 Mg Tab 40 Mg PO DAILY Reported Ramipril 2.5 Mg Cap 2.5 Mg PO DAILY Metolazone 5 Mg Tab 5 Mg PO DAILY Spironolactone 25 Mg Tab 25 Mg PO BIDPC Sertraline (Sertraline HCl) 50 Mg Tab 50 Mg PO DAILY Pravastatin 20 Mg Tab 20 Mg PO DAILY Omeprazole 20 Mg Tab 20 Mg PO EVERY OTHER DAY Ferrous Sulfate 325 Mg Tab 325 Mg PO BID Eliquis (Apixaban) 2.5 Mg Tab 2.5 Mg PO BID Allergies: Coded Allergies: Sulfa (Verified Allergy, Severe, SWELLING, 10/18/16) Active Ordered Medications Current Medications Medications (Trade) Dose Ordered Sig/Andree Route Start Time Stop Time Status Last Admin (NS 250 ml Inj) 250 ml @ 15 mls/hr ONCE ONCE IV 10/18/16 13:45 10/19/16 06:24 10/18/16 14:12 (Eliquis) 2.5 mg BID PO 10/18/16 21:00 UNV (Ferrous Sulfate) 325 mg BID PO 10/18/16 21:00 UNV (Zaroxolyn) 5 mg DAILY PO 10/19/16 09:00 UNV (Pravachol) 20 mg DAILY PO 10/19/16 09:00 (Altace) 2.5 mg DAILY PO 10/19/16 09:00 (Zoloft) 50 mg DAILY PO 10/19/16 09:00 (Aldactone) 25 mg BIDPC PO 10/18/16 18:00 (Demadex) 40 mg DAILY PO 10/19/16 09:00 UNV (NS Flush) 2 ml UNSCH PRN IV FLUSH 10/18/16 15:30 (NS Flush) 2 ml BID IV FLUSH 10/18/16 21:00 (Tylenol) 650 mg Q4H PRN PO 10/18/16 15:30 (Zofran Inj) 4 mg Q6H PRN IVP 10/18/16 15:30 UNV (Dulcolax Supp) 10 mg DAILY PRN RECTAL 10/18/16 15:30 (Colace) 100 mg Q12H PO 10/18/16 16:00 (Narcan Inj) 0.4 mg UNSCH PRN IV 10/18/16 15:30 (Lasix Inj) 40 mg Q8HR IV PUSH 10/18/16 22:00 10/19/16 07:00 Family History Family essentially are healthy, mother lived to be 98, sister lived to be 92-93 years old Social History Lives with daughter and son-in-law Denies alcohol use Denies tobacco use Denies illicit drug use Physical Exam Vital Signs Vital Signs Date Time Temp Pulse Resp B/P Pulse Ox O2 Delivery O2 Flow Rate FiO2 10/18/16 14:14 63 117/51 98 Nasal Cannula 2 10/18/16 13:27 97 Nasal Cannula 3 10/18/16 12:52 98.4 74 28 118/73 99 Nasal Cannula Physical Exam GENERAL: This is a pleasant well-nourished, well-developed patient, mildly ill- appearing, short of breath. SKIN: Pale, warm and dry. HEAD: Atraumatic. Normocephalic. No temporal or scalp tenderness. EYES: Pupils equal round and reactive. No scleral icterus. No injection or drainage. ENT: Nose without bleeding. Throat without erythema. Uvula midline. Airway patent. NECK: Trachea midline. No JVD or lymphadenopathy. CARDIOVASCULAR: Regular rate and rhythm without murmurs, gallops, or rubs. RESPIRATORY: Clear to auscultation. Breath sounds equal bilaterally. No wheezes , rales, or rhonchi. GASTROINTESTINAL: Abdomen soft, non-tender, nondistended. No hepato-splenomegaly , or palpable masses. No guarding. MUSCULOSKELETAL: Extremities without clubbing, cyanosis, bilateral lower extremity +2 edema, . No joint tenderness, effusion, or edema noted. No calf tenderness. Negative Homans sign bilaterally. NEUROLOGICAL: Awake and alert. Oriented to place, self, time. Moves all extremities weakly Motor and sensory grossly within normal limits. Normal speech. Laboratory Laboratory Tests Test 10/18/16 14:00 Prothrombin Time 11.5 Prothromb Time International 1.0 Ratio Activated Partial 62.4 Thromboplast Time B-Type Natriuretic Peptide 735 Blood Type O NEGATIVE Antibody Screen NEGATIVE Crossmatch Leukocyte-Reduced Red Blood Cells Blood Bank Comment Imaging Last Impressions Chest X-Ray 10/18/16 0000 Signed Impressions: Service Date/Time: Tuesday, October 18, 2016 13:34 - CONCLUSION: Mild congestive failure. Blair Gamble MD FACR Assessment and Plan Problem List: (1) MARIA G (acute kidney injury) ICD Code: N17.9 Status: Acute (2) CHF exacerbation ICD Code: I50.9 Status: Acute (3) Iron deficiency anemia ICD Code: D50.9 Status: Acute (4) Atrial flutter ICD Code: I48.92 Status: Chronic (5) COPD (chronic obstructive pulmonary disease) ICD Code: J44.9 Status: Acute (6) Anticoagulated ICD Code: Z79.01 Status: Acute (7) GI (gastrointestinal bleed) ICD Code: K92.2 Status: Acute Assessment and Plan Patient is a pleasant 81-year-old female who has a past medical history of COPD, CHF, iron deficiency anemia, lymphoma, A. fib A flutter on [facility] who came into the hospital with complaints of increasing bilateral lower extremity edema and shortness of breath. Patient states that she was just recently admitted in August with the same symptoms of worsening edema and shortness of breath. She states that she's been having on and off edema and is on diuretics. However, since last she has increasing shortness of breath and bilateral lower extremity edema that she was told by her allocations clerk Dr. Roger to increase her dose of diuretics. Patient has been on an increased dose but states that is not helping her. She saw Dr. Roger this morning and was told to come to the hospital for further evaluation. Congestive heart failure Acute on chronic exacerbation - BNP 735 - Chest x-ray showed mild congestive heart failure - Continue O2 nasal cannula - Lasix 40mg IV given. Continue torsemide, spironolactone - Continue metolazone, ramipril Chest pressure - Check troponin, CK - Check EKG COPD, possibly acute exacerbation - Possibly contributing to increased short of breath - DuoNeb's when necessary - Continue O2 - Guaifenesin when necessary A. fib/A flutter - On Eliquis, we'll evaluate for stool for Hemoccult - If patient is positive will possibly hold and consult GI for possible EGD/ colonoscopy - Rate controlled Anemia, iron deficiency anemia - Continue iron supplement - Stool for Hemoccult blood - Transfuse patient 2 units PRBC, Lasix 40 mg in between transfusion - Trend CBC DVT prop on Eliquis Written by Naye Amezcua, acting as scribe for Dr. Garcia on 10/18/16 at 16: 36. Patient evaluated face to face, discussed with DUANE and with her Daughter in the room Mrs. Zulema Hess, all questions answered to the best of my abilities. plan of care discussed with patient, consult placed. Code Status Full code Discussed Condition With Patient, daughter, nursing, ED attending Physician Certification 2 Midnight Certification Type: Admission for Inpatient Services Order for Inpatient Services The services are ordered in accordance with Medicare regulations or non- Medicare payer requirements, as applicable. In the case of services not specified as inpatient-only, they are appropriately provided as inpatient services in accordance with the 2-midnight benchmark. Estimated LOS (days): 2 days is the estimated time the patient will need to remain in the hospital, assuming treatment plan goals are met and no additional complications. Post-Hospital Plan: Home Problem Qualifiers (1) CHF exacerbation: Qualified Code: I50.9 - Acute on chronic congestive heart failure, unspecified congestive heart failure type Naye Fox Oct 18, 2016 16:39 Ruiz Amos MD Oct 18, 2016 19:15
[2016-10-18] MEDS ORDERED: FUROSEMIDE 20 MG/2 ML VIAL IV ONE (17:00)
[2016-10-18] MEDS: guaiFENesin E.R. 600 MG TAB PO SCH (20:21)
[2016-10-18] MEDS: APIXABAN 2.5 MG TABLET PO SCH (20:21)
[2016-10-18] MEDS: SPIRONOLACTONE 25 MG TAB PO SCH (20:21)
[2016-10-18] MEDS: FERROUS SULFATE 325 MG (65 MG ELEMENTAL IRON) TAB PO SCH (20:21)
[2016-10-18] MEDS: SODIUM CHLORIDE 0.9% FLUSH 10 ML FLUSH IV FLUSH SCH (20:22)
[2016-10-18] MEDS: FUROSEMIDE 40 MG/4 ML VIAL IV PUSH SCH (22:00)
--- NOTE | 2016-10-18 22:17 | MB ---
cc: DUSTIN MOSCOSO DATE OF CONSULTATION 10/18/2016 HISTORY Ms. Berman is an 81-year-old white female with a history of congestive heart failure, COPD, atrial fibrillation, AV isma ablation and Medtronic pacemaker placement and chronic renal insufficiency. She has had increased shortness of breath and peripheral edema over the last several days. She increased her diuretic based on the recommendation of her mortgage underwriter Dr. Roger but this morning after she saw Dr. Roger she was sent to the hospital for further management. She also complains of dark stools. She has a previous history of GI bleeding and anemia. She is currently undergoing transfusion. She has some mild chest pressure associated with shortness of breath. PAST MEDICAL HISTORY Positive for: 1. Atrial fibrillation. 2. AV isma ablation. 3. Mitral valve repair in 2006. 4. Congestive heart failure. 5. Renal insufficiency. 6. Medtronic single chamber pacemaker placed in 2011. 7. Preserved left ventricular systolic function by echo. 8. History of pulmonary hypertension. 9. Mitral stenosis with MV gradient 16 mmHg, and area of 0.6 cm square. 10. Hypertension. 11. Mitral regurgitation. 12. Lymphoma. 13. Port placement. 14. Anemia. 15. Peptic ulcer. 16. Hematuria. 17. Hyponatremia. 18. Carotid artery stenosis. 19. Coronary bypass in 2007. 20. Arthritis. MEDICATIONS Include: 1. Eliquis 2.5 milligrams twice a day. 2. Sertraline. 3. Torsemide. 4. Spironolactone nebulizer. 5. Albuterol. 6. Omeprazole. 7. Ramipril. 8. Pravastatin. 9. Metolazone. 10. Slow iron. ALLERGIES SULFA. SOCIAL HISTORY The patient does not smoke. She does not drink alcohol. She accompanied by her daughter. FAMILY HISTORY Negative for heart disease. REVIEW OF SYSTEMS Otherwise negative. PHYSICAL EXAMINATION VITAL SIGNS: Blood pressure 132/58, pulse 61 and regular. HEENT: Negative. 2+ carotid upstroke. No bruits. LUNGS: Clear. HEART: Regular with no murmur, gallop or rub. ABDOMEN: Soft. No bruits. EXTREMITIES: With 2+ pitting pretibial edema. 1+ distal pulses. NEUROLOGICAL: Grossly nonfocal. EKG was reviewed and showed atrial fibrillation and ventricular pacing. LABORATORY DATA INR 1.0. Troponin 0.03. BNP 735. DIAGNOSES 1. Acute exacerbation of chronic diastolic congestive heart failure. 2. Acute exacerbation of chronic kidney disease. 3. Anemia. 4. Atrial fibrillation, chronic. 5. Pulmonary hypertension. 6. Chronic obstructive pulmonary disease. 7. GI bleeding. 8. Lymphoma. 9. Mitral stenosis. 10. Status post AV isma ablation and Medtronic pacemaker placement. 11. Aortic insufficiency. 12. Mitral regurgitation. 13. History of mitral valve repair. DISPOSITION Ms. Berman will be monitored on telemetry. She will be diuresed with IV Lasix. We will also continue torsemide, spironolactone and metolazone. We will continue therapy for COPD. We will obtain serial enzymes and EKGs. We may consider GI evaluation given her anemia and possible GI bleeding. I will follow her for Dr. Zamudio, her primary commercial energy auditor. She will follow up with Dr. Zamudio in his office after discharge. MD RYAN Clements/KK /6:16 PM /9:52 PM STEPHANIA
[2016-10-19] VITALS (10 sets, daily range): BP systolic 110–145; BP diastolic 53–63; PULSE 60–76; RESP 16–46; TEMP 97.2–98.4; O2SAT 95–99
[2016-10-19] MEDS: RESP: IPRATROPIUM 0.5 MG/2.5 ML NEB NEB SCH ×7 (00:14→23:03)
[2016-10-19 01:50] LABS: AUTOMATED NEUTROPHIL # 4.8 TH/MM3 (1.8-7.7); BASOPHIL % 0.5 % (0.0-2.0); EOSINOPHIL # 0.1 TH/MM3 (0-0.4); EOSINOPHIL % 1.7 % (0.0-4.0); HEMO FLAGS DIFF FINAL; LYMPH % 12.5 % (9.0-44.0); LYMPHOCYTE # 0.8 TH/MM3 (1.0-4.8); MEAN CELL VOLUME 79.5 FL (80.0-100.0); MEAN CORPUSCULAR HEMOGLOBIN 26.7 PG (27.0-34.0); MEAN CORPUSCULAR HGB CONC 33.6 % (32.0-36.0); MONO % 13.7 % (0.0-8.0); NEUT % 71.6 % (16.0-70.0); PLATELET COUNT 192 TH/MM3 (150-450); RED CELL DISTRIBUTION WIDTH 17.1 % (11.6-17.2); WHITE BLOOD COUNT 6.7 TH/MM3 (4.0-11.0)
[2016-10-19 02:05] LABS: ALT (GPT) 11 U/L (10-53); ANION GAP 9 MEQ/L (5-15); AST (GOT) 11 U/L (15-37); BICARBONATE 25.2 MEQ/L (21.0-32.0); BLOOD UREA NITROGEN 65 MG/DL (7-18); CHLORIDE 108 MEQ/L (98-107); GLOMERULAR FILTRATION RATE 29 ML/MIN (>89); POTASSIUM 4.6 MEQ/L (3.5-5.1); SODIUM (NA) 142 MEQ/L (136-145)
[2016-10-19 02:16] LABS: ALKALINE PHOSPHATASE 66 U/L (45-117); TOTAL BILIRUBIN ADULT 1.8 MG/DL (0.2-1.0)
[2016-10-19] MEDS: DOCUSATE SODIUM 100 MG CAP PO SCH ×2 (04:00→17:26)
[2016-10-19] MEDS: FUROSEMIDE 40 MG/4 ML VIAL IV PUSH SCH (06:35)
[2016-10-19 08:01] LABS: AUTOMATED NEUTROPHIL # 5.4 TH/MM3 (1.8-7.7); BASOPHIL % 0.5 % (0.0-2.0); EOSINOPHIL # 0.1 TH/MM3 (0-0.4); EOSINOPHIL % 1.3 % (0.0-4.0); HEMATOCRIT 28.2 % (35.0-46.0); HEMO FLAGS DIFF FINAL; LYMPH % 10.4 % (9.0-44.0); LYMPHOCYTE # 0.8 TH/MM3 (1.0-4.8); MEAN CELL VOLUME 80.2 FL (80.0-100.0); MEAN CORPUSCULAR HEMOGLOBIN 26.1 PG (27.0-34.0); MEAN CORPUSCULAR HGB CONC 32.6 % (32.0-36.0); MONO % 16.2 % (0.0-8.0); NEUT % 71.6 % (16.0-70.0); PLATELET COUNT 194 TH/MM3 (150-450); RED BLOOD COUNT 3.52 MIL/MM3 (4.00-5.30); RED CELL DISTRIBUTION WIDTH 17.1 % (11.6-17.2); WHITE BLOOD COUNT 7.5 TH/MM3 (4.0-11.0)
[2016-10-19 08:05] LABS: PROTHROMBIN TIME - PATIENT 11.5 SEC (9.8-11.6)
[2016-10-19 08:17] LABS: BICARBONATE 26.4 MEQ/L (21.0-32.0); POTASSIUM 4.5 MEQ/L (3.5-5.1)
[2016-10-19] MEDS: guaiFENesin E.R. 600 MG TAB PO SCH ×2 (09:42→20:18)
[2016-10-19] MEDS: FERROUS SULFATE 325 MG (65 MG ELEMENTAL IRON) TAB PO SCH ×2 (09:43→20:18)
[2016-10-19] MEDS: RAMIPRIL 2.5 MG CAP PO SCH (09:43)
[2016-10-19] MEDS: SPIRONOLACTONE 25 MG TAB PO SCH ×2 (09:43→17:26)
[2016-10-19] MEDS: PRAVASTATIN SOD 20 MG TAB PO SCH (09:43)
[2016-10-19] MEDS: APIXABAN 2.5 MG TABLET PO SCH ×2 (09:43→20:18)
[2016-10-19] MEDS: SERTRALINE HCL 50 MG TAB PO SCH (09:43)
[2016-10-19] MEDS: SODIUM CHLORIDE 0.9% FLUSH 10 ML FLUSH IV FLUSH SCH ×2 (09:44→20:19)
[2016-10-19] MEDS: TORSEMIDE 20 MG TAB PO SCH (09:44)
[2016-10-19] MEDS: METOLAZONE 5 MG TAB PO SCH (09:44)
--- NOTE | 2016-10-19 11:27 | HHI.PR ---
Subjective Remarks Patient is a pleasant 81-year-old female who has a past medical history of COPD, CHF, iron deficiency anemia, lymphoma, A. fib A flutter on Eliquis who came into the hospital with complaints of increasing bilateral lower extremity edema and shortness of breath. Patient states that she was just recently admitted in August with the same symptoms of worsening edema and shortness of breath. She states that she's been having on and off edema and is on diuretics. However, since last she has increasing shortness of breath and bilateral lower extremity edema that she was told by her social worker psychiatric Dr. Roger to increase her dose of diuretics. Patient has been on an increased dose but states that is not helping her. She saw Dr. Roger this morning and was told to come to the hospital for further evaluation. Patient recently has undergone cardiac catheterization 09/22/16 in [place] complicated by hematoma in the left thigh area, ultrasound Doppler was negative. She is also being followed by Dr. Conrad and had received blood transfusions 2 in the first week of September, completed 5 doses of IV iron transfusions. Patient states that she has some dark stools but is unknown to her whether she has noted any blood in the stool or not because she is on iron transfusions. Patient has A. fib a flutter on Eliquis 2.5 mg twice a day. States she previously have some gastric bleeding and had an EGD and colonoscopy last year that showed she has some ?bleeding/ulceration. Patient also complains of some chest pressure, dizziness, weakness and headaches. 10/19: Seen in her bedroom in the presence of her Daughter in the room, she continue with Shortness of breath, denial resolution specialist following also asked for her Hematology and delivery specialist Doctor Houston asked for a consult. had two units of PRBCs following. no crackles on this evaluation but has bilateral Leg Edema 3+, Objective Vital Signs Date Time Temp Pulse Resp B/P Pulse Ox O2 Delivery O2 Flow Rate FiO2 10/19/16 08:22 98 Nasal Cannula 2.00 10/19/16 08:00 98.4 68 18 117/53 99 10/19/16 04:00 97.8 69 46 117/57 95 10/19/16 00:15 98 Nasal Cannula 2.00 10/19/16 00:00 97.5 76 16 117/55 98 10/18/16 20:40 98.0 67 16 126/55 97 4/19/17 20:00 62 10/18/16 20:00 98.0 67 16 126/55 97 10/18/16 18:27 98.6 77 16 121/56 98 Nasal Cannula 2 10/18/16 18:20 98.6 78 14 121/56 98 Nasal Cannula 2 10/18/16 16:19 99.0 61 14 132/58 98 Nasal Cannula 2 10/18/16 14:14 98 Nasal Cannula 2.00 10/18/16 14:14 63 117/51 98 Nasal Cannula 2 10/18/16 14:00 98.4 67 14 126/57 98 Nasal Cannula 2 10/18/16 13:27 97 Nasal Cannula 3 10/18/16 12:52 98.4 74 28 118/73 99 Nasal Cannula I/O 10/18/16 10/18/16 10/18/16 10/19/16 10/19/16 10/19/16 07:00 15:00 23:00 07:00 15:00 23:00 Intake Total 860 ml 240 ml Balance 860 ml 240 ml Intake Oral 360 ml 240 ml Packed Cells 500 ml # Voids 2 3 # Bowel Movements 0 0 Result Diagram: 10/19/16 0724 10/19/16 0724 Imaging Last Impressions Chest X-Ray 10/18/16 0000 Signed Impressions: Service Date/Time: Tuesday, October 18, 2016 13:34 - CONCLUSION: Mild congestive failure. Blair Gamble MD FACR Procedures No procedures performed. Other Results Laboratory Tests Test 10/18/16 10/18/16 10/18/16 10/19/16 13:00 14:00 14:09 01:30 Urine Color LIGHT-YELLOW Urine Turbidity CLEAR Urine pH 5.0 Urine Specific Cleves 1.008 Urine Protein NEG mg/dL Urine Glucose (UA) NEG mg/dL Urine Ketones NEG mg/dL Urine Occult Blood NEG Urine Nitrite NEG Urine Bilirubin NEG Urine Urobilinogen LESS THAN 2.0 MG/DL Urine Leukocyte Esterase TRACE Urine RBC LESS THAN 1 /hpf Urine WBC 2 /hpf Urine Squamous Epithelial 1 /hpf Cells Urine Hyaline Casts 11 /lpf Urine Mucus FEW /lpf Microscopic Urinalysis Comment CULT NOT INDICATED Activated Partial 62.4 SEC Thromboplast Time B-Type Natriuretic Peptide 735 PG/ML Blood Type O NEGATIVE Antibody Screen NEGATIVE Crossmatch Leukocyte-Reduced Red Blood Cells Blood Bank Comment Total Bilirubin 1.8 MG/DL Aspartate Amino Transf 11 U/L (AST/SGOT) Alanine Aminotransferase 11 U/L (ALT/SGPT) Alkaline Phosphatase 66 U/L Troponin I 0.03 NG/ML Total Protein 5.4 GM/DL Albumin 3.0 GM/DL Test 10/19/16 07:24 White Blood Count 7.5 TH/MM3 Red Blood Count 3.52 MIL/MM3 Hemoglobin 9.2 GM/DL Hematocrit 28.2 % Mean Corpuscular Volume 80.2 FL Mean Corpuscular Hemoglobin 26.1 PG Mean Corpuscular Hemoglobin 32.6 % Concent Red Cell Distribution Width 17.1 % Platelet Count 194 TH/MM3 Mean Platelet Volume 7.8 FL Neutrophils (%) (Auto) 71.6 % Lymphocytes (%) (Auto) 10.4 % Monocytes (%) (Auto) 16.2 % Eosinophils (%) (Auto) 1.3 % Basophils (%) (Auto) 0.5 % Neutrophils # (Auto) 5.4 TH/MM3 Lymphocytes # (Auto) 0.8 TH/MM3 Monocytes # (Auto) 1.2 TH/MM3 Eosinophils # (Auto) 0.1 TH/MM3 Basophils # (Auto) 0.0 TH/MM3 CBC Comment DIFF FINAL Differential Comment Prothrombin Time 11.5 SEC Prothromb Time International 1.0 RATIO Ratio Sodium Level 141 MEQ/L Potassium Level 4.5 MEQ/L Chloride Level 107 MEQ/L Carbon Dioxide Level 26.4 MEQ/L Anion Gap 8 MEQ/L Blood Urea Nitrogen 63 MG/DL Creatinine 1.74 MG/DL Estimat Glomerular Filtration 28 ML/MIN Rate Random Glucose 101 MG/DL Calcium Level 8.2 MG/DL Objective Remarks GENERAL: mildly ill-appearing, short of breath. SKIN: warm and dry. HEAD: Atraumatic. Normocephalic. No temporal or scalp tenderness. EYES: Pupils equal round and reactive. No scleral icterus. No injection or drainage. ENT: Nose without bleeding. Throat without erythema. Uvula midline. Airway patent. NECK: Trachea midline. No JVD or lymphadenopathy. CARDIOVASCULAR: Regular rate and rhythm without murmurs, gallops, or rubs. RESPIRATORY: Clear to auscultation. Breath sounds equal bilaterally. No wheezes , rales, or rhonchi. GASTROINTESTINAL: Abdomen soft, non-tender, nondistended. No hepato-splenomegaly , or palpable masses. No guarding. MUSCULOSKELETAL: Extremities without clubbing, cyanosis, bilateral lower extremity Edema 3+ NEUROLOGICAL: Awake and alert. Oriented x 3. no focal deficits. Medications and IVs Current Medications Medications (Trade) Dose Ordered Sig/Andree Route Start Time Stop Time Status Last Admin (Eliquis) 2.5 mg BID PO 10/18/16 21:00 10/19/16 09:43 (Ferrous Sulfate) 325 mg BID PO 10/18/16 21:00 10/19/16 09:43 (Zaroxolyn) 5 mg DAILY PO 10/19/16 09:00 10/19/16 09:44 (Pravachol) 20 mg DAILY PO 10/19/16 09:00 10/19/16 09:43 (Altace) 2.5 mg DAILY PO 10/19/16 09:00 10/19/16 09:43 (Zoloft) 50 mg DAILY PO 10/19/16 09:00 10/19/16 09:43 (Aldactone) 25 mg BIDPC PO 10/18/16 18:00 10/19/16 09:43 (Demadex) 40 mg DAILY PO 10/19/16 09:00 10/19/16 09:44 (NS Flush) 2 ml UNSCH PRN IV FLUSH 10/18/16 15:30 (NS Flush) 2 ml BID IV FLUSH 10/18/16 21:00 10/19/16 09:44 (Tylenol) 650 mg Q4H PRN PO 10/18/16 15:30 (Zofran Inj) 4 mg Q6H PRN IVP 10/18/16 15:30 (Dulcolax Supp) 10 mg DAILY PRN RECTAL 10/18/16 15:30 (Colace) 100 mg Q12H PO 10/18/16 16:00 (Narcan Inj) 0.4 mg UNSCH PRN IV 10/18/16 15:30 (Mucinex Er) 600 mg BID PO 10/18/16 21:00 10/19/16 09:42 A/P Assessment and Plan (1) MARIA G (acute kidney injury) ICD Code: N17.9 Status: Acute (2) CHF exacerbation ICD Code: I50.9 Status: Acute (3) Iron deficiency anemia ICD Code: D50.9 Status: Acute (4) Atrial flutter ICD Code: I48.92 Status: Chronic (5) COPD (chronic obstructive pulmonary disease) ICD Code: J44.9 Status: Acute (6) Anticoagulated ICD Code: Z79.01 Status: Acute (7) GI (gastrointestinal bleed) ICD Code: K92.2 Status: Acute Acute Exacerbation of Chronic diastolic congestive Heart failure, denial resolution specialist following, Continue Oxygen, Seen by denial resolution specialist Doctor Sameera Thorne recommended to continue diuresis IV Lasix, continue torsemide, Spironolactone, Metolazone, Continue therapy for COPD, serial enzymes and EKG, recommended Anemia workup by GI specialist. Atypical chest pain, Cardiac enzymes negative, denial resolution specialist following COPD with possible Acute exacerbation to continue Bronchodilator, Mucolytic, incentive spirometry. Atrial Fibrillation to continue Eliquis Anemia document management specialist following, she had multiple Transfusions in the past by Doctor Conrad recommended by Cardiology to get a consult with GI specialist also will consult delivery specialist. Acute on chronic renal failure will follow at this time on diuretics, may need to decrease the dosages of diuretics depend of renal function in am tomorrow. Lymphoma delivery specialist to follow. DVT prop on Eliquis Patient and her Daughter Mrs. Zulema Hess in the room Code Status Full code Discharge Planning Once cleared by Specialists. Ruiz Amos MD Oct 19, 2016 11:27 Ruiz Amos MD Oct 19, 2016 11:27 Ruiz Amos MD Oct 19, 2016 11:27
--- NOTE | 2016-10-19 13:42 | EKG ---
Date Performed: 10/18/2016 Time Performed: 13:37:09 PTAGE: 81 years EKG: ELECTRONIC VENTRICULAR PACEMAKER PREVIOUS TRACING : 09/01/2016 17.58 No change since the prior study. DOCTOR: Matt Massey Interpretating Date/Time 10/19/2016 13:39:37
--- NOTE | 2016-10-19 18:49 | PD.CARD.PN ---
Subjective Subjective Remarks No CP, still c/o SOB, diuresing Objective Medications Current Medications Medications (Trade) Dose Ordered Sig/Andree Route Start Time Stop Time Status Last Admin (Eliquis) 2.5 mg BID PO 10/18/16 21:00 10/19/16 09:43 (Ferrous Sulfate) 325 mg BID PO 10/18/16 21:00 10/19/16 09:43 (Zaroxolyn) 5 mg DAILY PO 10/19/16 09:00 10/19/16 09:44 (Pravachol) 20 mg DAILY PO 10/19/16 09:00 10/19/16 09:43 (Altace) 2.5 mg DAILY PO 10/19/16 09:00 10/19/16 09:43 (Zoloft) 50 mg DAILY PO 10/19/16 09:00 10/19/16 09:43 (Aldactone) 25 mg BIDPC PO 10/18/16 18:00 10/19/16 17:26 (Demadex) 40 mg DAILY PO 10/19/16 09:00 10/19/16 09:44 (NS Flush) 2 ml UNSCH PRN IV FLUSH 10/18/16 15:30 (NS Flush) 2 ml BID IV FLUSH 10/18/16 21:00 10/19/16 09:44 (Tylenol) 650 mg Q4H PRN PO 10/18/16 15:30 (Zofran Inj) 4 mg Q6H PRN IVP 10/18/16 15:30 (Dulcolax Supp) 10 mg DAILY PRN RECTAL 10/18/16 15:30 (Colace) 100 mg Q12H PO 10/18/16 16:00 10/19/16 17:26 (Narcan Inj) 0.4 mg UNSCH PRN IV 10/18/16 15:30 (Mucinex Er) 600 mg BID PO 10/18/16 21:00 10/19/16 09:42 Vital Signs / I&O Vital Signs Date Time Temp Pulse Resp B/P Pulse Ox O2 Delivery O2 Flow Rate FiO2 10/19/16 17:24 97.2 75 20 132/61 98 10/19/16 12:00 97.4 64 18 145/63 95 10/19/16 08:22 98 Nasal Cannula 2.00 10/19/16 08:00 98.4 68 18 117/53 99 10/19/16 04:00 97.8 69 46 117/57 95 10/19/16 00:15 98 Nasal Cannula 2.00 10/19/16 00:00 97.5 76 16 117/55 98 10/18/16 20:40 98.0 67 16 126/55 97 10/18/16 20:00 62 10/18/16 20:00 98.0 67 16 126/55 97 I/O 10/18/16 10/18/16 10/18/16 10/19/16 10/19/16 10/19/16 07:00 15:00 23:00 07:00 15:00 23:00 Intake Total 860 ml 240 ml 0 ml Balance 860 ml 240 ml 0 ml Intake Oral 360 ml 240 ml IV Total 0 ml Packed Cells 500 ml # Voids 2 3 # Bowel Movements 0 0 Physical Exam GENERAL: Mild dyspnea SKIN: Warm and dry. HEAD: Normocephalic. EYES: No scleral icterus. No injection or drainage. NECK: Supple, trachea midline. No JVD or lymphadenopathy. CARDIOVASCULAR: Irregular rate and rhythm without murmurs, gallops, or rubs. RESPIRATORY: Breath sounds equal bilaterally. No accessory muscle use. Decreased BS at bases GASTROINTESTINAL: Abdomen soft, non-tender, nondistended. MUSCULOSKELETAL: No cyanosis, 2+ edema Laboratory Laboratory Tests Test 10/19/16 10/19/16 01:30 07:24 White Blood Count 6.7 TH/MM3 7.5 TH/MM3 Red Blood Count 3.40 MIL/MM3 3.52 MIL/MM3 Hemoglobin 9.1 GM/DL 9.2 GM/DL Hematocrit 27.0 % 28.2 % Mean Corpuscular Volume 79.5 FL 80.2 FL Mean Corpuscular Hemoglobin 26.7 PG 26.1 PG Mean Corpuscular Hemoglobin 33.6 % 32.6 % Concent Red Cell Distribution Width 17.1 % 17.1 % Platelet Count 192 TH/MM3 194 TH/MM3 Mean Platelet Volume 7.8 FL 7.8 FL Neutrophils (%) (Auto) 71.6 % 71.6 % Lymphocytes (%) (Auto) 12.5 % 10.4 % Monocytes (%) (Auto) 13.7 % 16.2 % Eosinophils (%) (Auto) 1.7 % 1.3 % Basophils (%) (Auto) 0.5 % 0.5 % Neutrophils # (Auto) 4.8 TH/MM3 5.4 TH/MM3 Lymphocytes # (Auto) 0.8 TH/MM3 0.8 TH/MM3 Monocytes # (Auto) 0.9 TH/MM3 1.2 TH/MM3 Eosinophils # (Auto) 0.1 TH/MM3 0.1 TH/MM3 Basophils # (Auto) 0.0 TH/MM3 0.0 TH/MM3 CBC Comment DIFF FINAL DIFF FINAL Differential Comment Sodium Level 142 MEQ/L 141 MEQ/L Potassium Level 4.6 MEQ/L 4.5 MEQ/L Chloride Level 108 MEQ/L 107 MEQ/L Carbon Dioxide Level 25.2 MEQ/L 26.4 MEQ/L Anion Gap 9 MEQ/L 8 MEQ/L Blood Urea Nitrogen 65 MG/DL 63 MG/DL Creatinine 1.70 MG/DL 1.74 MG/DL Estimat Glomerular Filtration 29 ML/MIN 28 ML/MIN Rate Random Glucose 99 MG/DL 101 MG/DL Calcium Level 7.8 MG/DL 8.2 MG/DL Total Bilirubin 1.8 MG/DL Aspartate Amino Transf 11 U/L (AST/SGOT) Alanine Aminotransferase 11 U/L (ALT/SGPT) Alkaline Phosphatase 66 U/L Troponin I 0.03 NG/ML Total Protein 5.4 GM/DL Albumin 3.0 GM/DL Prothrombin Time 11.5 SEC Prothromb Time International 1.0 RATIO Ratio Imaging Last Impressions Chest X-Ray 10/18/16 0000 Signed Impressions: Service Date/Time: Tuesday, October 18, 2016 13:34 - CONCLUSION: Mild congestive failure. Blair Gamble MD FACR Assessment and Plan Problem List: (1) CHF exacerbation (2) MARIA G (acute kidney injury) (3) Atrial fibrillation (4) Anemia (5) COPD (chronic obstructive pulmonary disease) (6) Mitral stenosis Assessment and Plan Continue diuresis closely monitor renal fx as per Dr. Roger. Edema slowly improving, still SOB. Continue anticoagulation with Eliquis. A fib rate controlled. Continue monitoring. Problem Qualifiers (1) CHF exacerbation: Qualified Code: I50.33 - Acute on chronic diastolic congestive heart failure (2) Anemia: Qualified Code: D50.0 - Iron deficiency anemia due to chronic blood loss Sameera Thorne MD Oct 19, 2016 18:49
--- NOTE | 2016-10-19 19:10 | MB ---
cc: EMILIA SHORT MD DATE OF CONSULTATION 10/19/[address] Garcia REASON FOR CONSULTATION Hematology consulted to render opinion regarding patient with worsening anemia. HISTORY OF PRESENT ILLNESS The patient is a very pleasant 81-year-old female with a history of multiple medical problems including non-Hodgkin's lymphoma, anemia due to GI bleed and congestive heart failure who presented to the hospital with complaint of increased shortness of breath, bilateral lower extremity edema. She saw Dr. Roger and her diuretic was increased. However, she did not see any improvement. She got weaker and has mild chest pain. She has dizziness and decided to come into the hospital. She was found to have hemoglobin of 6.7. She denies any fever or chills. She has shortness of breath. She has nonproductive cough. Denies nausea, vomiting, diarrhea, abdominal pain. She stated that her stool color is dark, but she thinks it is because of the iron. She denies any dysuria, hematuria, denied rash or pruritus, any headache, focal numbness or weakness. PAST MEDICAL HISTORY 1. Non-Hodgkin lymphoma/follicular lymphoma. 2. Chronic obstructive pulmonary disease. 3. Congestive heart failure. 4. Chronic anemia. 5. Chronic atrial fibrillation 6. Osteoarthritis 7. Pulmonary hypertension 8. Aortic insufficiency 9. 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 10. Mitral regurgitation PAST SURGICAL HISTORY 1. AV isma ablation 2. Mitral valve repair 3. Bilateral hip surgery, 4. Appendectomy, 5. Cholecystectomy 6. Salpingo-oophorectomy. 7. Port placement, 8. Cataract extraction 9. Pacemaker placement 10. Enteroscopy ablation of AV malformation May 2016 in [place] 11. Multiple EGDs and colonoscopy. FAMILY HISTORY Noncontributory. SOCIAL HISTORY No tobacco or alcohol use. ALLERGIES SULFA MEDICATIONS Current, 1. Protonix. 2. Zaroxolyn. 3. Pravachol. 4. Ramipril 5. Sertraline 6. Torsemide. 7. Lasix 8. Eliquis 2.5 mg twice a day. 9. Ferrous sulfate 10. Guaifenesin 11. Aldactone. 12. Colace. REVIEW OF SYSTEMS CONSTITUTIONAL: He has increased weakness. Denies fever, chills, night sweat. EYES: Denies any blurry vision, double vision. ENT: No mouth sores or voice changes. CARDIOVASCULAR: As above. RESPIRATORY: As above. GI: As above. : Denies dysuria, hematuria. MUSCULOSKELETAL: Denies significant pain. HEMATOLOGY: As above. ENDOCRINE: Negative DERMATOLOGY: Negative. PSYCHIATRIC: Negative. NEUROLOGIC: Negative. PHYSICAL EXAMINATION VITAL SIGNS: Temperature 97.2, blood pressure 132/61, O2 saturation 98% 2 liters nasal cannula. GENERAL: She is alert and oriented x3 in no acute distress. She is sitting at the edge of the bed. HEENT: Atraumatic, normocephalic. Pupils equal, round and reactive to light. Extraocular muscles intact. No scleral icterus. Oropharynx dry mucosa. No lesion. No thrush. NECK: No thyromegaly. No palpable masses. LYMPHATICS: No palpable cervical, clavicular, axillary or inguinal lymph nodes. CARDIOVASCULAR: Regular S1-S2. LUNGS: Diffuse crackles. No significant wheezing. ABDOMEN: Soft, nontender, a little soreness in the right lower quadrant. No rebound or rigidity. I could not palpate liver or spleen. EXTREMITIES: 2+ lower extremity edema, no calf tenderness. BACK: No paravertebral tenderness. SKIN: No rash or petechiae. NEUROLOGIC: Nonfocal. LABORATORY DATA Reviewed ASSESSMENT 1. Anemia with microcytosis consistent with iron deficiency anemia. I think she has occult GI bleed. She had a history of bleeding AV malformation. She had an enteroscopy with ablation of the AV malformation in May of 2016. She has to go to [place] for the procedure. She has been getting periodic transfusions as well as Venofer iron infusion. She presented with hemoglobin 6.7 and she developed iron deficiency again. I think the Eliquis is increasing her risk of bleeding. She had two units of packed blood cell transfusion. Hemoglobin has trended up 9.2. We will need cardiology's opinion to see if the patient can stop the Eliquis. We will consult GI for further evaluation. In the meantime, I will monitor her CBC and give her transfusion as needed. I will also plan to give her Venofer infusion. 2. History of follicular lymphoma, stage IV diagnosed in 2006. Bone marrow was involved. She was treated with Rituxan CVP followed by two years of rituxan maintenance therapy completed in 2009. Her last CT scan did not show any recurrent disease. 3. Congestive heart failure. She has been evaluated by transporter driver. She is responding well to diuresis. 4. Chronic kidney disease. This also contributes to her anemia, but I do not expect her hemoglobin to be this low just from chronic kidney disease. 5. Chronic obstructive pulmonary disease RECOMMENDATIONS 1. Continue to monitor CBC 2. Recommend transfusion if hemoglobin trends below eight. 3. We will give her Venofer infusion while she is in the hospital. 4. Consult GI. 5. We will need cardiology's opinion to see if the patient can stop Eliquis, if not, she is likely going to have recurrent GI bleeding and require transfusion support. Thank you, Dr. Garcia, for asking me to see this patient. We will follow with you. MD LATONIA Fuentes/ /6:09 PM /6:43 PM STEPHANIA
[2016-10-20] VITALS (9 sets, daily range): BP systolic 114–121; BP diastolic 53–81; PULSE 60–78; RESP 18–19; TEMP 97.6–98; O2SAT 94–98
[2016-10-20] MEDS: RESP: IPRATROPIUM 0.5 MG/2.5 ML NEB NEB SCH ×5 (03:06→23:46)
[2016-10-20] MEDS: DOCUSATE SODIUM 100 MG CAP PO SCH ×2 (03:55→16:32)
[2016-10-20 07:24] LABS: HEMATOCRIT 26.4 % (35.0-46.0); MEAN CELL VOLUME 80.3 FL (80.0-100.0); MEAN CORPUSCULAR HGB CONC 32.4 % (32.0-36.0); PLATELET COUNT 174 TH/MM3 (150-450); RED BLOOD COUNT 3.29 MIL/MM3 (4.00-5.30); RED CELL DISTRIBUTION WIDTH 17.5 % (11.6-17.2); REVIEW FLAG FINAL; WHITE BLOOD COUNT 4.8 TH/MM3 (4.0-11.0)
[2016-10-20 07:45] LABS: BICARBONATE 28.9 MEQ/L (21.0-32.0); MAGNESIUM 2.5 MG/DL (1.5-2.5); POTASSIUM 4.4 MEQ/L (3.5-5.1)
[2016-10-20] MEDS: SODIUM CHLORIDE 0.9% FLUSH 10 ML FLUSH IV FLUSH SCH ×2 (08:58→20:32)
[2016-10-20] MEDS: SPIRONOLACTONE 25 MG TAB PO SCH ×2 (08:58→16:33)
[2016-10-20] MEDS: RAMIPRIL 2.5 MG CAP PO SCH (08:58)
[2016-10-20] MEDS: FERROUS SULFATE 325 MG (65 MG ELEMENTAL IRON) TAB PO SCH ×2 (08:59→20:32)
[2016-10-20] MEDS: guaiFENesin E.R. 600 MG TAB PO SCH ×2 (08:59→20:32)
[2016-10-20] MEDS: TORSEMIDE 20 MG TAB PO SCH (08:59)
[2016-10-20] MEDS: PANTOPRAZOLE SOD 20 MG DELAYED RELEASE TAB PO SCH (09:00)
[2016-10-20] MEDS: PRAVASTATIN SOD 20 MG TAB PO SCH (09:00)
[2016-10-20] MEDS: METOLAZONE 5 MG TAB PO SCH (09:00)
[2016-10-20] MEDS: SERTRALINE HCL 50 MG TAB PO SCH (09:00)
[2016-10-20] MEDS: APIXABAN 2.5 MG TABLET PO SCH (09:00)
[2016-10-20] MEDS ORDERED: ACETAMINOPHEN/HYDROcodone 325 MG/5 MG TAB PO PRN (09:30)
--- NOTE | 2016-10-20 10:32 | HHI.PR ---
Subjective Remarks Patient is a pleasant 81-year-old female who has a past medical history of COPD, CHF, iron deficiency anemia, lymphoma, A. fib A flutter on Eliquis who came into the hospital with complaints of increasing bilateral lower extremity edema and shortness of breath. Patient states that she was just recently admitted in August with the same symptoms of worsening edema and shortness of breath. She states that she's been having on and off edema and is on diuretics. However, since last she has increasing shortness of breath and bilateral lower extremity edema that she was told by her shop mechanic helper Dr. Roger to increase her dose of diuretics. Patient has been on an increased dose but states that is not helping her. She saw Dr. Roger this morning and was told to come to the hospital for further evaluation. Patient recently has undergone cardiac catheterization 09/22/16 in [place] complicated by hematoma in the left thigh area, ultrasound Doppler was negative. She is also being followed by Dr. Conrad and had received blood transfusions 2 in the first week of September, completed 5 doses of IV iron transfusions. Patient states that she has some dark stools but is unknown to her whether she has noted any blood in the stool or not because she is on iron transfusions. Patient has A. fib a flutter on Eliquis 2.5 mg twice a day. States she previously have some gastric bleeding and had an EGD and colonoscopy last year that showed she has some ?bleeding/ulceration. Patient also complains of some chest pressure, dizziness, weakness and headaches. 10/19: Seen in her bedroom in the presence of her Daughter in the room, she continue with Shortness of breath, clinical trials specialist following also asked for her Hematology and geological specialist Doctor Houston asked for a consult. had two units of PRBCs following. no crackles on this evaluation but has bilateral Leg Edema 3+, 10/20: Seen in her bedroom, discussed with her and her Daughter Miss Poole Overall, no Nausea, vomit or diarrhea, continue with Leg Edema 3+, on Hold Eliquis until recommended to be re started by GI specialist. Hemoglobin Trending down after blood transfusion Objective Vital Signs Date Time Temp Pulse Resp B/P Pulse Ox O2 Delivery O2 Flow Rate FiO2 10/20/16 08:00 97.6 64 19 114/81 96 10/20/16 04:00 97.8 71 18 118/56 98 10/20/16 00:00 97.9 71 18 115/59 97 10/19/16 20:00 97.4 63 16 110/61 99 10/19/16 20:00 63 10/19/16 19:51 98 Nasal Cannula 2.00 10/19/16 18:00 60 10/19/16 17:24 97.2 75 20 132/61 98 10/19/16 12:00 97.4 64 18 145/63 95 I/O 10/19/16 10/19/16 10/19/16 10/20/16 10/20/16 10/20/16 07:00 15:00 23:00 07:00 15:00 23:00 Intake Total 240 ml 720 ml 240 ml 100 ml Output Total 1000 ml 1000 ml 725 ml Balance 240 ml -280 ml -760 ml -625 ml Intake Oral 240 ml 720 ml 240 ml 100 ml IV Total 0 ml Output Urine Total 1000 ml 1000 ml 725 ml # Voids 3 # Bowel Movements 0 1 0 0 Result Diagram: 10/20/16 0627 10/20/1627 Imaging Last Impressions Chest X-Ray 10/18/16 0000 Signed Impressions: Service Date/Time: Tuesday, October 18, 2016 13:34 - CONCLUSION: Mild congestive failure. Blair Gamble MD FACR Procedures No procedures performed. Other Results Laboratory Tests Test 10/18/16 10/18/16 10/18/16 10/19/16 13:00 14:00 14:09 01:30 Urine Color LIGHT-YELLOW Urine Turbidity CLEAR Urine pH 5.0 Urine Specific [place] 1.008 Urine Protein NEG mg/dL Urine Glucose (UA) NEG mg/dL Urine Ketones NEG mg/dL Urine Occult Blood NEG Urine Nitrite NEG Urine Bilirubin NEG Urine Urobilinogen LESS THAN 2.0 MG/DL Urine Leukocyte Esterase TRACE Urine RBC LESS THAN 1 /hpf Urine WBC 2 /hpf Urine Squamous Epithelial 1 /hpf Cells Urine Hyaline Casts 11 /lpf Urine Mucus FEW /lpf Microscopic Urinalysis Comment CULT NOT INDICATED Activated Partial 62.4 SEC Thromboplast Time B-Type Natriuretic Peptide 735 PG/ML Blood Type O NEGATIVE Antibody Screen NEGATIVE Crossmatch Leukocyte-Reduced Red Blood Cells Blood Bank Comment Total Bilirubin 1.8 MG/DL Aspartate Amino Transf 11 U/L (AST/SGOT) Alanine Aminotransferase 11 U/L (ALT/SGPT) Alkaline Phosphatase 66 U/L Troponin I 0.03 NG/ML Total Protein 5.4 GM/DL Albumin 3.0 GM/DL Test 10/19/16 10/20/16 07:24 06:27 Neutrophils (%) (Auto) 71.6 % Lymphocytes (%) (Auto) 10.4 % Monocytes (%) (Auto) 16.2 % Eosinophils (%) (Auto) 1.3 % Basophils (%) (Auto) 0.5 % Neutrophils # (Auto) 5.4 TH/MM3 Lymphocytes # (Auto) 0.8 TH/MM3 Monocytes # (Auto) 1.2 TH/MM3 Eosinophils # (Auto) 0.1 TH/MM3 Basophils # (Auto) 0.0 TH/MM3 CBC Comment DIFF FINAL Differential Comment Prothrombin Time 11.5 SEC Prothromb Time International 1.0 RATIO Ratio White Blood Count 4.8 TH/MM3 Red Blood Count 3.29 MIL/MM3 Hemoglobin 8.6 GM/DL Hematocrit 26.4 % Mean Corpuscular Volume 80.3 FL Mean Corpuscular Hemoglobin 26.0 PG Mean Corpuscular Hemoglobin 32.4 % Concent Red Cell Distribution Width 17.5 % Platelet Count 174 TH/MM3 Mean Platelet Volume 7.7 FL Sodium Level 139 MEQ/L Potassium Level 4.4 MEQ/L Chloride Level 104 MEQ/L Carbon Dioxide Level 28.9 MEQ/L Anion Gap 6 MEQ/L Blood Urea Nitrogen 59 MG/DL Creatinine 1.51 MG/DL Estimat Glomerular Filtration 33 ML/MIN Rate Random Glucose 92 MG/DL Calcium Level 8.3 MG/DL Magnesium Level 2.5 MG/DL Objective Remarks GENERAL: mildly ill-appearing, short of breath. SKIN: warm and dry. HEAD: Atraumatic. Normocephalic. No temporal or scalp tenderness. EYES: Pupils equal round and reactive. No scleral icterus. No injection or drainage. ENT: Nose without bleeding. Throat without erythema. Uvula midline. Airway patent. NECK: Trachea midline. No JVD or lymphadenopathy. CARDIOVASCULAR: Regular rate and rhythm without murmurs, gallops, or rubs. RESPIRATORY: Decreased Breath sounds bilateral, crackles on Left lower base. GASTROINTESTINAL: Abdomen soft, non-tender, nondistended. No hepato-splenomegaly , or palpable masses. No guarding. MUSCULOSKELETAL: Extremities without clubbing, cyanosis, bilateral lower extremity Edema 3+ NEUROLOGICAL: Awake and alert. Oriented x 3. no focal deficits. Medications and IVs Current Medications Medications (Trade) Dose Ordered Sig/Andree Route Start Time Stop Time Status Last Admin (Eliquis) 2.5 mg BID PO 10/18/16 21:00 10/19/16 20:18 (Ferrous Sulfate) 325 mg BID PO 10/18/16 21:00 10/20/16 08:59 (Zaroxolyn) 5 mg DAILY PO 10/19/16 09:00 10/20/16 09:00 (Pravachol) 20 mg DAILY PO 10/19/16 09:00 10/20/16 09:00 (Altace) 2.5 mg DAILY PO 10/19/16 09:00 10/20/16 08:58 (Zoloft) 50 mg DAILY PO 10/19/16 09:00 10/20/16 09:00 (Aldactone) 25 mg BIDPC PO 10/18/16 18:00 10/20/16 08:58 (Demadex) 40 mg DAILY PO 10/19/16 09:00 10/20/16 08:59 (NS Flush) 2 ml UNSCH PRN IV FLUSH 10/18/16 15:30 (NS Flush) 2 ml BID IV FLUSH 10/18/16 21:00 10/20/16 08:58 (Tylenol) 650 mg Q4H PRN PO 10/18/16 15:30 (Zofran Inj) 4 mg Q6H PRN IVP 10/18/16 15:30 (Dulcolax Supp) 10 mg DAILY PRN RECTAL 10/18/16 15:30 (Colace) 100 mg Q12H PO 10/18/16 16:00 10/20/16 03:55 (Narcan Inj) 0.4 mg UNSCH PRN IV 10/18/16 15:30 (Mucinex Er) 600 mg BID PO 10/18/16 21:00 10/20/16 08:59 ([place] 5-325 Mg) 1 tab Q4H PRN PO 10/20/16 09:30 A/P Assessment and Plan (1) MARIA G (acute kidney injury) ICD Code: N17.9 Status: Acute (2) CHF exacerbation ICD Code: I50.9 Status: Acute (3) Iron deficiency anemia ICD Code: D50.9 Status: Acute (4) Atrial flutter ICD Code: I48.92 Status: Chronic (5) COPD (chronic obstructive pulmonary disease) ICD Code: J44.9 Status: Acute (6) Anticoagulated ICD Code: Z79.01 Status: Acute (7) GI (gastrointestinal bleed) ICD Code: K92.2 Status: Acute Acute Exacerbation of Chronic diastolic congestive Heart failure, clinical trials specialist following, Continue Oxygen, Seen by clinical trials specialist Doctor Sameera Thorne recommended to continue diuresis IV Lasix, continue torsemide, Spironolactone, Metolazone, Continue therapy for COPD, serial enzymes and EKG, recommended Anemia workup by GI specialist. Atypical chest pain, Cardiac enzymes negative, clinical trials specialist following COPD with possible Acute exacerbation to continue Bronchodilator, Mucolytic, incentive spirometry. No wheezing asked for CT Chest. Atrial Fibrillation on hold Eliquis. Cardiology following. Anemia sales administration specialist following, she had multiple Transfusions, and asked for Iron IV. Acute on chronic renal failure will follow at this time on diuretics, Improving on diuretics. Lymphoma geological specialist following. Follow CT Chest without contrast. DVT prop on SCDs Patient and her Daughter Mrs. Poole Overall all questions answered at the best of my abilities. Code Status Full code Discharge Planning Once cleared by Specialists. Ruiz Amos MD Oct 20, 2016 10:32
--- NOTE | 2016-10-20 10:55 | PD.ONC.PN ---
Subjective Subjective Remarks Afebrile overnight. Patient complaining of some pain in her low back and right groin. She states these are chronic pains that have been present on and off "for a long time." She requests something for pain. Objective Data Date Time Temp Pulse Resp B/P Pulse Ox O2 Delivery O2 Flow Rate FiO2 10/20/16 08:00 97.6 64 19 114/81 96 10/20/16 04:00 97.8 71 18 118/56 98 10/20/16 00:00 97.9 71 18 115/59 97 10/19/16 20:00 97.4 63 16 110/61 99 10/19/16 20:00 63 10/19/16 19:51 98 Nasal Cannula 2.00 10/19/16 18:00 60 10/19/16 17:24 97.2 75 20 132/61 98 10/19/16 12:00 97.4 64 18 145/63 95 10/20/16 10/20/16 10/20/16 07:00 15:00 23:00 Intake Total 100 ml Output Total 725 ml Balance -625 ml Result Diagram: 10/20/16 0627 10/20/1627 Laboratory Results Laboratory Tests Test 10/20/16 06:27 White Blood Count 4.8 TH/MM3 Red Blood Count 3.29 MIL/MM3 Hemoglobin 8.6 GM/DL Hematocrit 26.4 % Mean Corpuscular Volume 80.3 FL Mean Corpuscular Hemoglobin 26.0 PG Mean Corpuscular Hemoglobin 32.4 % Concent Red Cell Distribution Width 17.5 % Platelet Count 174 TH/MM3 Mean Platelet Volume 7.7 FL Sodium Level 139 MEQ/L Potassium Level 4.4 MEQ/L Chloride Level 104 MEQ/L Carbon Dioxide Level 28.9 MEQ/L Anion Gap 6 MEQ/L Blood Urea Nitrogen 59 MG/DL Creatinine 1.51 MG/DL Estimat Glomerular Filtration 33 ML/MIN Rate Random Glucose 92 MG/DL Calcium Level 8.3 MG/DL Magnesium Level 2.5 MG/DL Culture Results Microbiology Date/Time Procedure Status Source Growth 10/18/16 13:00 Stool Occult Blood (DEMETRIS) Received Stool Stool Pending 10/19/16 13:00 Stool Occult Blood (DEMETRIS) - Final Complete Stool Stool HEMOCCULT POSITIVE Administered Medications Medications (Trade) Dose Ordered Sig/Andree Route PRN Reason Start Time Stop Time Status Last Admin Dose Admin Apixaban (Eliquis) 2.5 mg BID PO 10/18/16 21:00 10/19/16 20:18 Ferrous Sulfate (Ferrous Sulfate) 325 mg BID PO 10/18/16 21:00 10/20/16 08:59 Metolazone (Zaroxolyn) 5 mg DAILY PO 10/19/16 09:00 10/20/16 09:00 Pravastatin Sodium (Pravachol) 20 mg DAILY PO 10/19/16 09:00 10/20/16 09:00 Ramipril (Altace) 2.5 mg DAILY PO 10/19/16 09:00 10/20/16 08:58 Sertraline HCl (Zoloft) 50 mg DAILY PO 10/19/16 09:00 10/20/16 09:00 Spironolactone (Aldactone) 25 mg BIDPC PO 10/18/16 18:00 10/20/16 08:58 Torsemide (Demadex) 40 mg DAILY PO 10/19/16 09:00 10/20/16 08:59 Sodium Chloride (NS Flush) 2 ml BID IV FLUSH 10/18/16 21:00 10/20/16 08:58 Docusate Sodium (Colace) 100 mg Q12H PO 10/18/16 16:00 10/20/16 03:55 Guaifenesin (Mucinex Er) 600 mg BID PO 10/18/16 21:00 10/20/16 08:59 Objective Remarks GENERAL: Elderly female, sitting up in bed in [facility]. SKIN: Warm and dry. HEAD: Normocephalic. EYES: No injection or drainage. NECK: Supple, trachea midline. CARDIOVASCULAR: +S1/S2 RESPIRATORY: Breath sounds equal bilaterally. No accessory muscle use. GASTROINTESTINAL: Abdomen soft, non-tender, nondistended. EXTREMITIES: No cyanosis. trace edema NEUROLOGICAL: awake and alert, normal speech. Assessment/Plan Problem List: (1) Anemia due to blood loss Status: Acute Plan: --Anemia with microcytosis consistent with iron deficiency anemia. ++occult GI bleed. (GI consulted) --history of bleeding AV malformation. --had an enteroscopy with ablation of the AV malformation in May of 2016 ( done in [place]) --has been getting periodic transfusions as well as Venofer iron infusion. --presented with hemoglobin 6.7 and she developed iron deficiency again. Eliquis has likely increased her risk of bleeding. --will need cardiology's opinion to see if the patient can stop the Eliquis. (2) Follicular lymphoma Status: Acute Plan: --History of follicular lymphoma, stage IV diagnosed in 2006. Bone marrow was involved. --was treated with Rituxan CVP followed by two years of rituxan maintenance therapy completed in 2009. --last CT scan did not show any recurrent disease. (3) CHF exacerbation Status: Acute Plan: -- has been evaluated by agronomy manager. She is responding well to diuresis. Assessment 81y/o female admitted with dyspnea and bilateral lower extremity edema. Hematology consulted for anemia. history of non-Hodgkin's lymphoma, anemia due to GI bleed and congestive heart failure Chronic obstructive pulmonary disease. Chronic atrial fibrillation. Osteoarthritis. Pulmonary hypertension. Aortic insufficiency History of GI bleed due to AV malformation and gastric ulcer. Mitral regurgitation Plan 1. await GI consult 2. continue ferrous sulfate 3. start IV Venofer 100mg x 2 bags. 4. need cardiology's opinion to see if the patient can stop Eliquis, if not, she is likely going to have recurrent GI bleeding and require transfusion support. 5. start Lortab PRN pain. Attending Statement The exam, history, and the medical decision-making described in the above note were completed with the assistance of the mid-level provider. I reviewed and agree with the findings presented. I attest that I had a [id number] encounter with the patient on the same day, and personally performed and documented my assessment and findings in the medical record. Feels better. No gross GI bleeding noted. Hgb stable after the transfusion. Will give venofer infusion. Await GI evaluation. Need agronomy manager opinion to stop the ELiquis? Problem Qualifiers (1) CHF exacerbation: Qualified Code: I50.33 - Acute on chronic diastolic congestive heart failure Dorys Knapp Oct 20, 2016 10:55 Pietro Conrad MD Oct 20, 2016 16:54
--- NOTE | 2016-10-20 12:44 | MB ---
cc: LAMBERTO DONG M.D. DATE OF CONSULTATION 10/20/2016 DATE OF 1935 REASON FOR CONSULTATION Evaluation of anemia, occult GI bleed. HISTORY OF PRESENT ILLNESS This is a pleasant 81-year-old female known to Dr. Gonzalez and our practice who carries a diagnosis of chronic GI bleed, occult GI bleeding secondary to presumed small bowel angiodysplastic lesions. She has been evaluated extensively with endoscopic procedures both upper and lower which failed to reveal a source of bleeding. She had capsule endoscopy late last year and ultimately it was determined she had small bowel angiodysplasia. She was sent to [place] and she had double balloon enteroscopy with cauterization of some of the vascular lesions. It was felt that they could not reach other lesions elsewhere in the small bowel. I do not have the actual reports at this time. The patient currently has a history of COPD, CHF, history of non-Hodgkin's lymphoma, atrial fibrillation with a pacemaker and she is maintained on Eliquis therapy. She came to the hospital with fluid overload today with bilateral extremity edema, shortness of breath. She was diuresed. Her fluid overload state has improved. She also has a history of renal failure followed by Dr. Roger. Her hemoglobin on presentation was 6.7. She was transfused currently ranging between 8.6 and 9.1. She has been receiving outpatient IV iron infusion and oral iron therapy. She does have dark stools because of iron p.o. therapy. PAST HISTORY Includes: 1. COPD on home oxygen 2. CHF 3. Atrial fibrillation/flutter 4. Lymphoma 5. Pulmonary hypertension 6. Mitral valve repair 7. Hip surgery 8. Appendectomy 9. Cataract surgery 10. Coronary artery disease MEDICATIONS Medications include: 1. Torsemide 2. Ramipril 3. Metolazone 4. Spirolactone 5. Sertraline 6. Pravastatin 7. Omeprazole 8. Ferrous sulfate 9. Eliquis ALLERGIES SULFA REVIEW OF SYSTEMS SULFA REVIEW OF SYSTEMS A 12-point review of systems is as stated above. FAMILY HISTORY Negative for GI disease. SOCIAL HISTORY She denies smoking, alcohol, or illicit drug use. EXAMINATION An elderly female alert on oxygen therapy appears slightly pale in no acute distress. VITAL SIGNS: Currently stable. She is afebrile. HEENT: Slightly pale conjunctiva. Oral mucosa dry. NECK: Supple. CARDIAC: S1, S2 regular rhythm, no murmurs. CHEST: Clear at this time. ABDOMEN: Obese, soft, nontender. No masses palpable. No guarding or rebound. EXTREMITIES: 1+ edema in the lower extremities noted. LABORATORY DATA Was previously mentioned. The MCV is 79 to 80 range. Her liver enzymes are within a normal range. Total bilirubin is 1.8, albumin 5.4, creatinine is 1.75. IMPRESSION An 81-year-old female admitted with fluid overload, CHF, COPD worsening anemia, history of iron deficiency anemia with occult GI blood loss secondary to angiodysplastic lesions of the small bowel that were apparently treated last May endoscopically with double balloon enteroscopy. She has evidence of continued bleeding as she is maintained on anticoagulation therapy as well. PLAN I have discussed this with the patient and her daughter. The Eliquis certainly is making things more difficult from the GI standpoint promoting more GI bleeding. They were told that they would not pursue repeat double balloon enteroscopy in [place] because of presumed risks of the prolonged procedure and inability to reach all segments of the small bowel apparently. We will discuss this with Dr. Gonzalez who knows her well. For now, we will continue symptomatic treatment with transfusions, and iron therapy. Cardiology may need to make a decision if Eliquis can be discontinued at some point. If not, occult bleeding would probably be a continued problem unfortunately. CT angiography he may be risky because of her renal failure. We discussed this as well. We will continue to follow with you. Thank you kindly for this consult. MD MORRIS Villa/CARLOS /12:15 PM /12:28 PM
[2016-10-20] MEDS: IRON SUCROSE INJ 100 MG in SODIUM CHLORIDE 0.9% INJ 100 ML IV SCH (13:00)
--- NOTE | 2016-10-20 15:45 | RADRPT ---
EXAM DATE/TIME: 10/20/2016 14:54 [facility] COMPARISON: CHEST SINGLE AP, October 18, 2016, 13:34. INDICATIONS : Shortness of breath and Edema. RADIATION DOSE: 5.51 CTDIvol (mGy) MEDICAL HISTORY : Hypertension. Lymphoma, COPD SURGICAL HISTORY : CABG Pacemaker. Mitral valve reapir. ENCOUNTER: Initial ACUITY: 1 day PAIN SCALE: 2/10 LOCATION: TECHNIQUE: Volumetric scanning of the chest was performed. Using automated exposure control and adjustment of t he mA and/or kV according to patient size, radiation dose was kept as low as reasonably achievable to obtain optimal diagnostic quality images. FINDINGS: Small bilateral pleural effusions are present. Coronary artery calcifications are seen typically seen with CAD and need to be evaluated clinically. Slight bibasilar atelectasis and/or infiltrate is seen. There is evidence for prior median sternotomy. Small hiatal hernia seen. CONCLUSION: Small bilateral pleural effusions and bibasilar atelectasis and/or infiltrate. Berenice Soto MD on October 20, 2016 at 15:39 Board Certified Radiologist. This report was verified electronically.
--- NOTE | 2016-10-20 16:20 | PD.CONS ---
Consult Service Palliative Care . Consult Requested By Dr. Garcia . Primary Care Physician Alfonso Tolliver MD . Reason for Consultation a. To assist with evaluation and management of symptoms including: bleeding , weakness, shortness of breath. b. To assist medical decision maker(s) with: better understanding of current medical conditions; weighing benefits/burdens of medical treatment options; making medical treatment decisions. . HPI History of Present Illness Ms. Berman is an 81 year old female with past medical history of CHF, COPD on oxygen at home, atrial fibrillation/flutter on Eliquis, follicular lymphoma in remission, pulmonary hypertension, arthritis and iron deficiency anemia. Her tubular products fabricator is Dr. Zamudio. Patient was previously admitted in August for worsening edema and shortness of breath, discharged on diuretics and oxygen. Patient recently has undergone cardiac catheterization 09/22/16 in [place] complicated by hematoma in the left thigh area, ultrasound Doppler was negative. She is followed by Dr. Conrad, hematology/oncology for iron deficiency anemia and history of lymphoma in remission. He receives periodic blood transfusions and iron infusions. Patient presented to [facility] emergency department on 10/18/16 with shortness of breath and fluid retention. She reported 3 day history of worsening swelling in the legs, weight gain and increasing shortness of breath. She was using oxygen 2 3 L via nasal cannula at home. EKG showed ventricular paced rhythm with no sign of acute ischemia or arrhythmia. Initial evaluation revealed hemoglobin 6.7, hematocrit 21.9, white blood cells of 6.0, platelets of 228, MCV of 82.7, reticular count of 4.2. BMP: sodium 141, potassium 5, chloride of 108, carbon dioxide 21.4, anion gap 12, BUN of 62, creatinine 1.50, GFR 33, glucose 110, calcium 8.0. Patient was admitted with CHF exacerbation, COPD, G.I. bleed. Hemoccult positive. Dr. Thorne, cardiology was consulted with recommendation to continue torsemide, spironolactone and metolazone. With recommendations to follow up with primary tubular products fabricator Dr. Zamudio. Dr. Conrad, hematology was consulted for worsening anemia with recommendations to monitor CBC, transfusion for hemoglobin less than 8, then over infusion while in the hospital, consult G.I. Gastroenterology, Dr. Onofre was consulted for G.I. bleed, notes indicate awaiting recommendations from cardiology regarding possible discontinuation of Eliquis. CTA high risk given acute on chronic renal failure. No plan for further gastroenterology evaluation. Palliative care is consulted to assist with further clarification of treatment goals. Met with patient and her daughter at bedside. Reviewed past medical history and findings throughout hospital course. Patient and her daughter good understanding of current medical problems and difficulties faced given need for anticoagulation given atrial fibrillation/flutter with recurrent G.I. bleed. Patient desires continued treatment plan for now understanding difficulties. She elects NO CODE status. She seems open to hospice consideration in the future should she have any further setbacks her decline, though is not yet ready to make this decision. Function/Cognitive Trajectory Ongoing decline over the past many months, increasing shortness of breath, fluid retention etc. . Review of Systems Constitutional: COMPLAINS OF: Fatigue, Weight gain (secondary to fluid retention), Change in appetite (decreased), Generalized weakness Respiratory: COMPLAINS OF: Cough, Shortness of breath Cardiovascular: COMPLAINS OF: Dyspnea on Exertion, Lower Extremity Edema, Orthopnea Gastrointestinal: COMPLAINS OF: Abdominal pain (slight right lower quadrant tenderness at times) Musculoskeletal: COMPLAINS OF: Joint pain Hematologic/Lymphatics: COMPLAINS OF: Bruising, History of transfusions Past Family Social History Coded Allergies: Sulfa (Verified Allergy, Severe, SWELLING, 10/18/16) Past Medical History COPD, on home oxygen 2-3 LPM via [place] for the past few weeks CHF Iron deficiency anemia A. fib/A flutter, on Eliquis Lymphoma diagnosed 2006 in remission arthritis pulmonary hypertension coronary artery disease hypertension . Past Surgical History Pacemaker mitral valve repair Hip surgery 6 bilaterally Appendectomy Cholecystectomy Port placement (right) Cataract surgery bilateral Cardiac catheterization CABG right salpingo oophorectomy enteroscopy ablation of AV malformation May 2016 in [place] multiple EGD/ colonoscopy . Reported Medications Reported Meds & Prescriptions Reported Meds & Active Scripts Active Torsemide 20 Mg Tab 40 Mg PO DAILY Reported Ramipril 2.5 Mg Cap 2.5 Mg PO DAILY Metolazone 5 Mg Tab 5 Mg PO DAILY Spironolactone 25 Mg Tab 25 Mg PO BIDPC Sertraline (Sertraline HCl) 50 Mg Tab 50 Mg PO DAILY Pravastatin 20 Mg Tab 20 Mg PO DAILY Omeprazole 20 Mg Tab 20 Mg PO EVERY OTHER DAY Ferrous Sulfate 325 Mg Tab 325 Mg PO BID Eliquis (Apixaban) 2.5 Mg Tab 2.5 Mg PO BID . Current Medications Medications (Trade) Dose Ordered Sig/Andree Route Start Time Stop Time Status Last Admin (Eliquis) 2.5 mg BID PO 10/18/16 21:00 Hold 10/19/16 20:18 (Ferrous Sulfate) 325 mg BID PO 10/18/16 21:00 10/20/16 08:59 (Zaroxolyn) 5 mg DAILY PO 10/19/16 09:00 10/20/16 09:00 (Pravachol) 20 mg DAILY PO 10/19/16 09:00 10/20/16 09:00 (Altace) 2.5 mg DAILY PO 10/19/16 09:00 10/20/16 08:58 (Zoloft) 50 mg DAILY PO 10/19/16 09:00 10/20/16 09:00 (Aldactone) 25 mg BIDPC PO 10/18/16 18:00 10/20/16 08:58 (Demadex) 40 mg DAILY PO 10/19/16 09:00 10/20/16 08:59 (NS Flush) 2 ml UNSCH PRN IV FLUSH 10/18/16 15:30 (NS Flush) 2 ml BID IV FLUSH 10/18/16 21:00 10/20/16 08:58 (Tylenol) 650 mg Q4H PRN PO 10/18/16 15:30 (Zofran Inj) 4 mg Q6H PRN IVP 10/18/16 15:30 (Dulcolax Supp) 10 mg DAILY PRN RECTAL 10/18/16 15:30 (Colace) 100 mg Q12H PO 10/18/16 16:00 10/20/16 03:55 (Narcan Inj) 0.4 mg UNSCH PRN IV 10/18/16 15:30 (Mucinex Er) 600 mg BID PO 10/18/16 21:00 10/20/16 08:59 Acetaminophen/ Hydrocodone Bitart 1 tab 1 tab Q4H PRN PO 10/20/16 09:30 (Venofer Inj/NS Inj) 105 ml @ 105 mls/hr DAILY IV 10/20/16 12:00 10/21/16 09:59 . Family History Family essentially are healthy, mother lived to be 98, sister lived to be 92-93 years old Substance Use Tobacco: never smoked Alcohol: none Prescription med abuse: none Illicits: none . Psychosocial History Born and raised in [place]. He was for 63 years, 2 years ago. She has 2 daughters, Zulema (who lives with pt) and Concha (lives local). . Spiritual/Cultural Factors Was raised [place]ism [place]. Watches Ten[employer] services on TV. 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 . Living Will: Completed, but not made available Health Care Surrogate: Completed, but not made available (patient indicates her daughter Hope Lazcano is her designated healthcare surrogate. ) Health Care Surrogate(s): Patient indicates that she has a living will and designation of healthcare surrogate. She reports that her daughter Hope Key is primary healthcare surrogate. Patient is currently capacitated to make her own health care decisions. . Today's verbally stated goals: Patient desires continued supportive care for now. She is not yet ready to consider hospice. Elects NO CODE, [place] do not resuscitate order completed by patient, placed on chart for attending physician signature. Family/friends goals: Daughter Hope at bedside supports patient's current wishes. Ethical and Legal Issues Patient indicates that she has a living will and designation of healthcare surrogate. She reports that her daughter Hope Key is primary healthcare surrogate. Patient is currently capacitated to make her own health care decisions. . Physical Exam Vital Signs Date Time Temp Pulse Resp B/P Pulse Ox O2 Delivery O2 Flow Rate FiO2 10/20/16 12:31 97.9 78 19 119/53 94 10/20/16 12:00 65 10/20/16 08:00 97.6 64 19 114/81 96 10/20/16 04:00 97.8 71 18 118/56 98 10/20/16 00:00 97.9 71 18 115/59 97 10/19/16 20:00 97.4 63 16 110/61 99 10/19/16 20:00 63 10/19/16 19:51 98 Nasal Cannula 2.00 10/19/16 18:00 60 10/19/16 17:24 97.2 75 20 132/61 98 10/19/16 10/20/16 19:00 07:00 Intake Total 720 ml 340 ml Output Total 1000 ml 1725 ml Balance -280 ml -1385 ml Intake Oral 720 ml 340 ml IV Total 0 ml Output Urine Total 1000 ml 1725 ml # Bowel Movements 1 0 Exam CONSTITUTIONAL/GENERAL: This is an adequately nourished patient, in no apparent distress. TUBES/LINES/DRAINS: oxygen via nasal cannula, right chest port. SKIN: No jaundice, rashes, or lesions. Ecchymoses on upper extremities. No wounds seen anteriorly. Skin temperature appropriate. Not diaphoretic. HEAD: Atraumatic. Normocephalic. EYES: Pupils equal and round and reactive. No scleral icterus. No injection or drainage. ENT: Hearing grossly normal. Nose without bleeding or purulent drainage. Throat without visible erythema, exudates, masses, or lesions. NECK: Trachea midline. CARDIOVASCULAR: Regular rate and rhythm without murmurs, gallops, or rubs. No JVD. Peripheral pulses symmetric. RESPIRATORY/CHEST: Symmetric, unlabored respirations. Diminished breath sounds bilaterally. GASTROINTESTINAL: Abdomen soft, mild tenderness right lower quadrant, nondistended. No guarding. Bowel sounds present. GENITOURINARY: Without palpable bladder distension. MUSCULOSKELETAL: Extremities trace edema. No joint tenderness or effusion noted. No calf tenderness. No mottling or clubbing. LYMPHATICS: No palpable cervical or supraclavicular adenopathy. NEUROLOGICAL: Awake and alert. Motor and sensory grossly within normal limits. Follows commands. Cognitively sharp. Moves all extremities. PSYCHIATRIC: No obvious anxiety/depression. no apparent hallucinations or other psychotic thought process. . Diagnostic Tests Laboratory Laboratory Tests Test 10/18/16 10/18/16 10/18/16 10/18/16 13:00 14:00 14:09 16:00 Urine Color LIGHT-YELLOW (YELLW/STRAW) Urine Turbidity CLEAR (CLEAR) Urine pH 5.0 (5.0-8.5) Urine Specific [place] 1.008 (1.002-1.035) Urine Protein NEG mg/dL (NEG-TRACE) Urine Glucose (UA) NEG mg/dL (NEG) Urine Ketones NEG mg/dL (NEG) Urine Occult Blood NEG (NEG) Urine Nitrite NEG (NEG) Urine Bilirubin NEG (NEG) Urine Urobilinogen LESS THAN 2.0 MG/DL (LESS THAN 2.0) Urine Leukocyte Esterase TRACE (NEG) Urine RBC LESS THAN 1 /hpf (0-3) Urine WBC 2 /hpf (0-5) Urine Squamous Epithelial 1 /hpf (0-5) Cells Urine Hyaline Casts 11 /lpf (RARE) Urine Mucus FEW /lpf (OCC) Microscopic Urinalysis Comment CULT NOT INDICATED Prothrombin Time 11.5 SEC (9.8-11.6) Prothromb Time International 1.0 RATIO Ratio Activated Partial 62.4 SEC Thromboplast Time (24.3-30.1) B-Type Natriuretic Peptide 735 PG/ML (0-100) Blood Type O NEGATIVE Antibody Screen NEGATIVE Crossmatch Leukocyte-Reduced Leukocyte-Reduced Red Blood Red Blood Cells Cells Blood Bank Comment Troponin I 0.03 NG/ML (0.02-0.05) Test 10/19/16 10/19/16 10/20/16 01:30 07:24 06:27 White Blood Count 6.7 TH/MM3 7.5 TH/MM3 4.8 TH/MM3 (4.0-11.0) (4.0-11.0) (4.0-11.0) Red Blood Count 3.40 MIL/MM3 3.52 MIL/MM3 3.29 MIL/MM3 (4.00-5.30) (4.00-5.30) (4.00-5.30) Hemoglobin 9.1 GM/DL 9.2 GM/DL 8.6 GM/DL (11.6-15.3) (11.6-15.3) (11.6-15.3) Hematocrit 27.0 % 28.2 % 26.4 % (35.0-46.0) (35.0-46.0) (35.0-46.0) Mean Corpuscular Volume 79.5 FL 80.2 FL 80.3 FL (80.0-100.0) (80.0-100.0) (80.0-100.0) Mean Corpuscular Hemoglobin 26.7 PG 26.1 PG 26.0 PG (27.0-34.0) (27.0-34.0) (27.0-34.0) Mean Corpuscular Hemoglobin 33.6 % 32.6 % 32.4 % Concent (32.0-36.0) (32.0-36.0) (32.0-36.0) Red Cell Distribution Width 17.1 % 17.1 % 17.5 % (11.6-17.2) (11.6-17.2) (11.6-17.2) Platelet Count 192 TH/MM3 194 TH/MM3 174 TH/MM3 (150-450) (150-450) (150-450) Mean Platelet Volume 7.8 FL 7.8 FL 7.7 FL (7.0-11.0) (7.0-11.0) (7.0-11.0) Neutrophils (%) (Auto) 71.6 % 71.6 % (16.0-70.0) (16.0-70.0) Lymphocytes (%) (Auto) 12.5 % 10.4 % (9.0-44.0) (9.0-44.0) Monocytes (%) (Auto) 13.7 % 16.2 % (0.0-8.0) (0.0-8.0) Eosinophils (%) (Auto) 1.7 % (0.0-4.0) 1.3 % (0.0-4.0) Basophils (%) (Auto) 0.5 % (0.0-2.0) 0.5 % (0.0-2.0) Neutrophils # (Auto) 4.8 TH/MM3 5.4 TH/MM3 (1.8-7.7) (1.8-7.7) Lymphocytes # (Auto) 0.8 TH/MM3 0.8 TH/MM3 (1.0-4.8) (1.0-4.8) Monocytes # (Auto) 0.9 TH/MM3 1.2 TH/MM3 (0-0.9) (0-0.9) Eosinophils # (Auto) 0.1 TH/MM3 0.1 TH/MM3 (0-0.4) (0-0.4) Basophils # (Auto) 0.0 TH/MM3 0.0 TH/MM3 (0-0.2) (0-0.2) CBC Comment DIFF FINAL DIFF FINAL Differential Comment Sodium Level 142 MEQ/L 141 MEQ/L 139 MEQ/L (136-145) (136-145) (136-145) Potassium Level 4.6 MEQ/L 4.5 MEQ/L 4.4 MEQ/L (3.5-5.1) (3.5-5.1) (3.5-5.1) Chloride Level 108 MEQ/L 107 MEQ/L 104 MEQ/L (98-107) (98-107) (98-107) Carbon Dioxide Level 25.2 MEQ/L 26.4 MEQ/L 28.9 MEQ/L (21.0-32.0) (21.0-32.0) (21.0-32.0) Anion Gap 9 MEQ/L (5-15) 8 MEQ/L (5-15) 6 MEQ/L (5-15) Blood Urea Nitrogen 65 MG/DL (7-18) 63 MG/DL (7-18) 59 MG/DL (7-18) Creatinine 1.70 MG/DL 1.74 MG/DL 1.51 MG/DL (0.50-1.00) (0.50-1.00) (0.50-1.00) Estimat Glomerular Filtration 29 ML/MIN (>89) 28 ML/MIN (>89) 33 ML/MIN (>89) Rate Random Glucose 99 MG/DL 101 MG/DL 92 MG/DL (74-106) (74-106) (74-106) Calcium Level 7.8 MG/DL 8.2 MG/DL 8.3 MG/DL (8.5-10.1) (8.5-10.1) (8.5-10.1) Total Bilirubin 1.8 MG/DL (0.2-1.0) Aspartate Amino Transf 11 U/L (15-37) (AST/SGOT) Alanine Aminotransferase 11 U/L (10-53) (ALT/SGPT) Alkaline Phosphatase 66 U/L (45-117) Troponin I 0.03 NG/ML (0.02-0.05) Total Protein 5.4 GM/DL (6.4-8.2) Albumin 3.0 GM/DL (3.4-5.0) Prothrombin Time 11.5 SEC (9.8-11.6) Prothromb Time International 1.0 RATIO Ratio Magnesium Level 2.5 MG/DL (1.5-2.5) Result Diagram: 10/20/1662610/20/16626 Microbiology Microbiology Date/Time Procedure Status Source Growth 10/18/16 13:00 Stool Occult Blood (DEMETRIS) Received Stool Stool Pending 10/19/16 13:00 Stool Occult Blood (DEMETRIS) - Final Complete Stool Stool HEMOCCULT POSITIVE . Imaging Last Impressions Chest CT 10/20/16 0000 Signed Impressions: Service Date/Time: Thursday, October 20, 2016 14:54 - CONCLUSION: Small bilateral pleural effusions and bibasilar atelectasis and/or infiltrate. Berenice Soto MD Chest X-Ray 10/18/16 0000 Signed Impressions: Service Date/Time: Tuesday, October 18, 2016 13:34 - CONCLUSION: Mild congestive failure. Blair Gamble MD FACR . Patient/Family Conference Present at Family Conference: Met with patient and her daughter Hope at bedside. Family Conference Time (mins): 45 Family Conference Location: Bedside Issues Discussed: * Palliative care role, purpose, approach * Additional medical, psychosocial, and spiritual history * Patients general health, functional status, and cognitive changes in the months leading up to the current hospitalization * Patient/family understanding of the current medical problems * Patient/family understanding of prognosis * Patients goals of care as best understood from advance directives and/or conversations and/or values * Current medical treatment options and benefits/burdens of those options * Likely scenarios comparing ongoing aggressive care with a transition to comfort measures only * Questions answered to the best of my ability * Palliative care contact information provided Assessment and Plan Disease Oriented Problem List: (1) GI (gastrointestinal bleed) (2) Anemia due to blood loss (3) Mitral stenosis (4) Atrial fibrillation Comment: On eloquis (5) CHF exacerbation (6) Iron deficiency anemia (7) Atrial flutter (8) COPD (chronic obstructive pulmonary disease) (9) Chronic kidney disease (10) Follicular lymphoma Comment: In remission Symptom Scale: (1) Weakness 0-10 Scale: Unable to quantify (2) Bleeding 0-10 Scale: Unable to quantify (3) Shortness of breath 0-10 Scale: Unable to quantify Comment: Reports shortness of breath with minimal exertion, denies shortness of breath at rest as long as she's wearing her oxygen. Pertinent Non-Medical Issues Psychosocial: after 63 years of marriage. Supported by her daughters Hope and Concha. 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 Watches [employer] services on TV. Legal: Patient indicates that she has a living will and designation of healthcare surrogate. She reports that her daughter Hope Overall is primary healthcare surrogate. Patient is currently capacitated to make her own health care decisions. Ethical issues impacting care: no known concerns at this time. . Important Contacts * Hope Key, daughter/[facility]: [phone] * Concha Radford, daughter: [phone] . Prognosis Mrs. Berman is an 81-year-old female with complicated medical history including underlying coronary artery disease, atrial fibrillation/flutter on Eliquis, CHF, COPD admitted with CHF exacerbation, COPD, G.I. bleed and acute on chronic renal failure. Given her complicated medical history difficulties with treating atrial fibrillation, need for anticoagulation and recurrent G.I. bleed she could potentially have a limited life expectancy of 6 months or less. Hospice appropriate should goals be comfort oriented. . Code Status: No Code ([place] DNR on chart, signed by patient, awaiting attending physician signature.) Plan * Patient is currently capacitated to make her own health care decisions. Patient indicates that she has a living will and designation of healthcare surrogate. She reports that her daughter Hope Key is primary healthcare surrogate. Copy of written advance directives requested, daughter will bring on next visit. Living will currently in EMR is the patient's living will, NOT the patient's living will. * NO CODE * Palliative care met with patient and her daughter, Hope. Patient and her daughter have a good understanding of the difficult nature of current health conditions. Patient elects NO CODE. She wants to continue current treatment plan , they both understand risk of no anticoagulation (risk of stroke, blood clot) given underlying A. Fib vs. risk of continued anticoagulation given GI bleed. * Reviewed option of comfort focused care with hospice support, she is not yet ready to consider hospice, however seem open to the option if she has further setbacks or decline. She is familiar with hospice as her who 2 years ago had hospice support. * [place] DO NOT RESUSCITATE order left on front of chart for attending physician signature. Already signed by patient per her request. This document will need to go home with patient. Please fax to HIM once signed by attending physician for placement in the EMR. * SYMPTOMS: Pain: denies pain at this time. Dyspnea: denies at rest, increased with minimal exertion. Weakness: secondary to G.I. bleed, CHF, COPD, hospitalization etc. Patient still ambulates to the restroom with a walker and assist. * Palliative care number provided. * Palliative care will continue to follow throughout hospital course to assist with symptom management and clarification of goals as needed. Time Spent Total Floor Time (mins): 60 Face to Face Time (mins): 45 >50% Counseling/Coord of Care: Yes Thank you for the opportunity to participate in the care of Ms. Berman. Attestation To help prompt me to consider important information that might be impacting today's encounter and assessment, information from prior notes written by myself or my colleagues may have been "brought forward" into today's note. My signature on this note, however, is an attestation that I personally performed the exam, history, and/or decision-making noted today, and, unless otherwise indicated, the interactions with patient, family, and staff as well as the review of records all occurred today. I also attest that the listed assessment and stated plan reflect my best clinical judgment today based on the combination of historical information, prior notes, and today's exam/ interactions. When time spent is documented, it refers only to time spent today by the signer, or if indicated, combined time spent today by collaborating physician/nurse practitioner. JENSEN HOWE Oct 20, 2016 16:20
--- NOTE | 2016-10-20 17:39 | PD.CARD.PN ---
Subjective Subjective Remarks No CP, still c/o dyspnea, edema improving with diuresis Objective Medications Current Medications Medications (Trade) Dose Ordered Sig/Andree Route Start Time Stop Time Status Last Admin (Eliquis) 2.5 mg BID PO 10/18/16 21:00 Hold 10/19/16 20:18 (Ferrous Sulfate) 325 mg BID PO 10/18/16 21:00 10/20/16 08:59 (Zaroxolyn) 5 mg DAILY PO 10/19/16 09:00 10/20/16 09:00 (Pravachol) 20 mg DAILY PO 10/19/16 09:00 10/20/16 09:00 (Altace) 2.5 mg DAILY PO 10/19/16 09:00 10/20/16 08:58 (Zoloft) 50 mg DAILY PO 10/19/16 09:00 10/20/16 09:00 (Aldactone) 25 mg BIDPC PO 10/18/16 18:00 10/20/16 16:33 (Demadex) 40 mg DAILY PO 10/19/16 09:00 10/20/16 08:59 (NS Flush) 2 ml UNSCH PRN IV FLUSH 10/18/16 15:30 (NS Flush) 2 ml BID IV FLUSH 10/18/16 21:00 10/20/16 08:58 (Tylenol) 650 mg Q4H PRN PO 10/18/16 15:30 (Zofran Inj) 4 mg Q6H PRN IVP 10/18/16 15:30 (Dulcolax Supp) 10 mg DAILY PRN RECTAL 10/18/16 15:30 (Colace) 100 mg Q12H PO 10/18/16 16:00 10/20/16 16:32 (Narcan Inj) 0.4 mg UNSCH PRN IV 10/18/16 15:30 (Mucinex Er) 600 mg BID PO 10/18/16 21:00 10/20/16 08:59 Acetaminophen/ Hydrocodone Bitart 1 tab 1 tab Q4H PRN PO 10/20/16 09:30 (Venofer Inj/NS Inj) 105 ml @ 105 mls/hr DAILY IV 10/20/16 12:00 10/21/16 09:59 10/20/16 13:00 Vital Signs / I&O Vital Signs Date Time Temp Pulse Resp B/P Pulse Ox O2 Delivery O2 Flow Rate FiO2 10/20/16 16:23 98.0 62 18 116/57 95 10/20/16 12:31 97.9 78 19 119/53 94 10/20/16 12:00 65 10/20/16 08:00 97.6 64 19 114/81 96 10/20/16 04:00 97.8 71 18 118/56 98 10/20/16 00:00 97.9 71 18 115/59 97 10/19/16 20:00 97.4 63 16 110/61 99 10/19/16 20:00 63 10/19/16 19:51 98 Nasal Cannula 2.00 10/19/16 18:00 60 I/O 10/19/16 10/19/16 10/19/16 10/20/16 10/20/16 10/20/16 07:00 15:00 23:00 07:00 15:00 23:00 Intake Total 240 ml 720 ml 240 ml 100 ml 720 ml Output Total 1000 ml 1000 ml 725 ml 900 ml Balance 240 ml -280 ml -760 ml -625 ml -180 ml Intake Oral 240 ml 720 ml 240 ml 100 ml 720 ml IV Total 0 ml Output Urine Total 1000 ml 1000 ml 725 ml 900 ml # Voids 3 # Bowel Movements 0 1 0 0 1 Physical Exam GENERAL: Mild dyspnea SKIN: Warm and dry. HEAD: Normocephalic. EYES: No scleral icterus. No injection or drainage. NECK: Supple, trachea midline. No JVD or lymphadenopathy. CARDIOVASCULAR: Irregular rate and rhythm without murmurs, gallops, or rubs. RESPIRATORY: Breath sounds equal bilaterally. No accessory muscle use. Decreased BS at bases GASTROINTESTINAL: Abdomen soft, non-tender, nondistended. MUSCULOSKELETAL: No cyanosis, 1+ edema Laboratory Laboratory Tests Test 10/20/16 06:27 White Blood Count 4.8 TH/MM3 Red Blood Count 3.29 MIL/MM3 Hemoglobin 8.6 GM/DL Hematocrit 26.4 % Mean Corpuscular Volume 80.3 FL Mean Corpuscular Hemoglobin 26.0 PG Mean Corpuscular Hemoglobin 32.4 % Concent Red Cell Distribution Width 17.5 % Platelet Count 174 TH/MM3 Mean Platelet Volume 7.7 FL Sodium Level 139 MEQ/L Potassium Level 4.4 MEQ/L Chloride Level 104 MEQ/L Carbon Dioxide Level 28.9 MEQ/L Anion Gap 6 MEQ/L Blood Urea Nitrogen 59 MG/DL Creatinine 1.51 MG/DL Estimat Glomerular Filtration 33 ML/MIN Rate Random Glucose 92 MG/DL Calcium Level 8.3 MG/DL Magnesium Level 2.5 MG/DL Imaging Last Impressions Chest CT 10/20/16 0000 Signed Impressions: Service Date/Time: Thursday, October 20, 2016 14:54 - CONCLUSION: Small bilateral pleural effusions and bibasilar atelectasis and/or infiltrate. Berenice Soto MD Chest X-Ray 10/18/16 0000 Signed Impressions: Service Date/Time: Tuesday, October 18, 2016 13:34 - CONCLUSION: Mild congestive failure. Blair Gamble MD FACR Assessment and Plan Problem List: (1) CHF exacerbation (2) MARIA G (acute kidney injury) (3) Atrial fibrillation (4) Anemia (5) COPD (chronic obstructive pulmonary disease) (6) Mitral stenosis Assessment and Plan Continue diuresis closely monitoring renal fx. Renal management as per Dr. Roger. Edema slowly improving, still SOB. Continue anticoagulation with Eliquis. A fib rate controlled. Continue monitoring. Problem Qualifiers (1) CHF exacerbation: Qualified Code: I50.33 - Acute on chronic diastolic congestive heart failure (2) Anemia: Qualified Code: D50.0 - Iron deficiency anemia due to chronic blood loss Sameera Thorne MD Oct 20, 2016 17:39
[2016-10-21] VITALS (10 sets, daily range): BP systolic 112–139; BP diastolic 52–72; PULSE 60–73; RESP 18; TEMP 97.5–98; O2SAT 93–98
[2016-10-21] MEDS: DOCUSATE SODIUM 100 MG CAP PO SCH ×2 (03:34→16:38)
[2016-10-21] MEDS: RESP: IPRATROPIUM 0.5 MG/2.5 ML NEB NEB SCH ×5 (03:54→21:15)
[2016-10-21 04:55] LABS: AUTOMATED NEUTROPHIL # 3.6 TH/MM3 (1.8-7.7); BASOPHIL % 0.6 % (0.0-2.0); EOSINOPHIL # 0.1 TH/MM3 (0-0.4); EOSINOPHIL % 1.4 % (0.0-4.0); HEMATOCRIT 25.1 % (35.0-46.0); HEMO FLAGS DIFF FINAL; LYMPH % 10.3 % (9.0-44.0); LYMPHOCYTE # 0.5 TH/MM3 (1.0-4.8); MEAN CELL VOLUME 80.1 FL (80.0-100.0); MEAN CORPUSCULAR HEMOGLOBIN 25.7 PG (27.0-34.0); MEAN CORPUSCULAR HGB CONC 32.1 % (32.0-36.0); MONO % 15.4 % (0.0-8.0); NEUT % 72.3 % (16.0-70.0); PLATELET COUNT 167 TH/MM3 (150-450); RED BLOOD COUNT 3.13 MIL/MM3 (4.00-5.30); RED CELL DISTRIBUTION WIDTH 17.6 % (11.6-17.2); WHITE BLOOD COUNT 4.9 TH/MM3 (4.0-11.0)
--- NOTE | 2016-10-21 08:54 | HHI.PR ---
Subjective Remarks Patient is a pleasant 81-year-old female who has a past medical history of COPD, CHF, iron deficiency anemia, lymphoma, A. fib A flutter on Eliquis who came into the hospital with complaints of increasing bilateral lower extremity edema and shortness of breath. Patient states that she was just recently admitted in August with the same symptoms of worsening edema and shortness of breath. She states that she's been having on and off edema and is on diuretics. However, since last she has increasing shortness of breath and bilateral lower extremity edema that she was told by her flight test supervisor Dr. Roger to increase her dose of diuretics. Patient has been on an increased dose but states that is not helping her. She saw Dr. Roger this morning and was told to come to the hospital for further evaluation. Patient recently has undergone cardiac catheterization 09/22/16 in [place] complicated by hematoma in the left thigh area, ultrasound Doppler was negative. She is also being followed by Dr. Conrad and had received blood transfusions 2 in the first week of September, completed 5 doses of IV iron transfusions. Patient states that she has some dark stools but is unknown to her whether she has noted any blood in the stool or not because she is on iron transfusions. Patient has A. fib a flutter on Eliquis 2.5 mg twice a day. States she previously have some gastric bleeding and had an EGD and colonoscopy last year that showed she has some ?bleeding/ulceration. Patient also complains of some chest pressure, dizziness, weakness and headaches. 10/19: Seen in her bedroom in the presence of her Daughter in the room, she continue with Shortness of breath, automation controls specialist following also asked for her Hematology and workers compensation specialist Doctor Houston asked for a consult. had two units of PRBCs following. no crackles on this evaluation but has bilateral Leg Edema 3+, 10/20: Seen in her bedroom, discussed with her and her Daughter Miss Poole Overall, no Nausea, vomit or diarrhea, continue with Leg Edema 3+, on Hold Eliquis until recommended to be re started by GI specialist. Hemoglobin Trending down after blood transfusion 10/21: Stable improved leg edema today, discussed with nurse Miss Titus, no nausea, vomit or diarrhea as per automation controls specialist continue diuresis, no new issues. but as per patient continue the same shortness of breath and Cough. Objective Vital Signs Date Time Temp Pulse Resp B/P Pulse Ox O2 Delivery O2 Flow Rate FiO2 10/21/16 08:19 94 Nasal Cannula 2.00 10/21/16 04:00 97.7 73 18 139/59 93 10/21/16 03:56 94 Nasal Cannula 2.00 10/21/16 00:00 97.5 72 18 119/52 95 10/20/16 23:47 94 Nasal Cannula 2.00 10/20/16 20:01 98 Nasal Cannula 2.00 10/20/16 20:00 97.7 66 18 121/59 97 10/20/16 20:00 60 10/20/16 16:23 98.0 62 18 116/57 95 10/20/16 12:31 97.9 78 19 119/53 94 10/20/16 12:00 65 I/O 10/20/16 10/20/16 10/20/16 10/21/16 10/21/16 10/21/16 07:00 15:00 23:00 07:00 15:00 23:00 Intake Total 100 ml 720 ml 240 ml 180 ml Output Total 725 ml 900 ml 600 ml 400 ml Balance -625 ml -180 ml -360 ml -220 ml Intake Oral 100 ml 720 ml 240 ml 180 ml Output Urine Total 725 ml 900 ml 600 ml 400 ml # Bowel Movements 0 1 0 Result Diagram: 10/21/16 0440 10/20/16 0627 Imaging Last Impressions Chest CT 10/20/16 0000 Signed Impressions: Service Date/Time: Thursday, October 20, 2016 14:54 - CONCLUSION: Small bilateral pleural effusions and bibasilar atelectasis and/or infiltrate. Berenice Soto MD Chest X-Ray 10/18/16 0000 Signed Impressions: Service Date/Time: Tuesday, October 18, 2016 13:34 - CONCLUSION: Mild congestive failure. Blair Gamble MD FACR Procedures No procedures performed. Other Results Laboratory Tests Test 10/18/16 10/18/16 10/18/16 10/19/16 13:00 14:00 14:09 01:30 Urine Color LIGHT-YELLOW Urine Turbidity CLEAR Urine pH 5.0 Urine Specific [place] 1.008 Urine Protein NEG mg/dL Urine Glucose (UA) NEG mg/dL Urine Ketones NEG mg/dL Urine Occult Blood NEG Urine Nitrite NEG Urine Bilirubin NEG Urine Urobilinogen LESS THAN 2.0 MG/DL Urine Leukocyte Esterase TRACE Urine RBC LESS THAN 1 /hpf Urine WBC 2 /hpf Urine Squamous Epithelial 1 /hpf Cells Urine Hyaline Casts 11 /lpf Urine Mucus FEW /lpf Microscopic Urinalysis Comment CULT NOT INDICATED Activated Partial 62.4 SEC Thromboplast Time B-Type Natriuretic Peptide 735 PG/ML Blood Type O NEGATIVE Antibody Screen NEGATIVE Crossmatch Leukocyte-Reduced Red Blood Cells Blood Bank Comment Total Bilirubin 1.8 MG/DL Aspartate Amino Transf 11 U/L (AST/SGOT) Alanine Aminotransferase 11 U/L (ALT/SGPT) Alkaline Phosphatase 66 U/L Troponin I 0.03 NG/ML Total Protein 5.4 GM/DL Albumin 3.0 GM/DL Test 10/19/16 10/20/16 10/21/16 07:24 06:27 04:40 Prothrombin Time 11.5 SEC Prothromb Time International 1.0 RATIO Ratio Sodium Level 139 MEQ/L Potassium Level 4.4 MEQ/L Chloride Level 104 MEQ/L Carbon Dioxide Level 28.9 MEQ/L Anion Gap 6 MEQ/L Blood Urea Nitrogen 59 MG/DL Creatinine 1.51 MG/DL Estimat Glomerular Filtration 33 ML/MIN Rate Random Glucose 92 MG/DL Calcium Level 8.3 MG/DL Magnesium Level 2.5 MG/DL White Blood Count 4.9 TH/MM3 Red Blood Count 3.13 MIL/MM3 Hemoglobin 8.1 GM/DL Hematocrit 25.1 % Mean Corpuscular Volume 80.1 FL Mean Corpuscular Hemoglobin 25.7 PG Mean Corpuscular Hemoglobin 32.1 % Concent Red Cell Distribution Width 17.6 % Platelet Count 167 TH/MM3 Mean Platelet Volume 7.3 FL Neutrophils (%) (Auto) 72.3 % Lymphocytes (%) (Auto) 10.3 % Monocytes (%) (Auto) 15.4 % Eosinophils (%) (Auto) 1.4 % Basophils (%) (Auto) 0.6 % Neutrophils # (Auto) 3.6 TH/MM3 Lymphocytes # (Auto) 0.5 TH/MM3 Monocytes # (Auto) 0.8 TH/MM3 Eosinophils # (Auto) 0.1 TH/MM3 Basophils # (Auto) 0.0 TH/MM3 CBC Comment DIFF FINAL Differential Comment Objective Remarks GENERAL: mildly ill-appearing, short of breath. SKIN: warm and dry. HEAD: Atraumatic. Normocephalic. No temporal or scalp tenderness. EYES: Pupils equal round and reactive. No scleral icterus. No injection or drainage. ENT: Nose without bleeding. Throat without erythema. Uvula midline. Airway patent. NECK: Trachea midline. No JVD or lymphadenopathy. CARDIOVASCULAR: Regular rate and rhythm without murmurs, gallops, or rubs. RESPIRATORY: Decreased Breath sounds bilateral, crackles on Left lower base. GASTROINTESTINAL: Abdomen soft, non-tender, nondistended. No hepato-splenomegaly , or palpable masses. No guarding. MUSCULOSKELETAL: Extremities without clubbing, cyanosis, No Edema on bilateral legs. NEUROLOGICAL: Awake and alert. Oriented x 3. no focal deficits. Medications and IVs Current Medications Medications (Trade) Dose Ordered Sig/Andree Route Start Time Stop Time Status Last Admin (Eliquis) 2.5 mg BID PO 10/18/16 21:00 Hold 10/19/16 20:18 (Ferrous Sulfate) 325 mg BID PO 10/18/16 21:00 10/20/16 20:32 (Zaroxolyn) 5 mg DAILY PO 10/19/16 09:00 10/20/16 09:00 (Pravachol) 20 mg DAILY PO 10/19/16 09:00 10/20/16 09:00 (Altace) 2.5 mg DAILY PO 10/19/16 09:00 10/20/16 08:58 (Zoloft) 50 mg DAILY PO 10/19/16 09:00 10/20/16 09:00 (Aldactone) 25 mg BIDPC PO 10/18/16 18:00 10/20/16 16:33 (Demadex) 40 mg DAILY PO 10/19/16 09:00 10/20/16 08:59 (NS Flush) 2 ml UNSCH PRN IV FLUSH 10/18/16 15:30 (NS Flush) 2 ml BID IV FLUSH 10/18/16 21:00 10/20/16 20:32 (Tylenol) 650 mg Q4H PRN PO 10/18/16 15:30 (Zofran Inj) 4 mg Q6H PRN IVP 10/18/16 15:30 (Dulcolax Supp) 10 mg DAILY PRN RECTAL 10/18/16 15:30 (Colace) 100 mg Q12H PO 10/18/16 16:00 10/21/16 03:34 (Narcan Inj) 0.4 mg UNSCH PRN IV 10/18/16 15:30 (Mucinex Er) 600 mg BID PO 10/18/16 21:00 10/20/16 20:32 Acetaminophen/ Hydrocodone Bitart 1 tab 1 tab Q4H PRN PO 10/20/16 09:30 10/20/16 22:14 (Venofer Inj/NS Inj) 105 ml @ 105 mls/hr DAILY IV 10/20/16 12:00 10/21/16 09:59 10/20/16 13:00 A/P Assessment and Plan (1) MARIA G (acute kidney injury) ICD Code: N17.9 Status: Acute (2) CHF exacerbation ICD Code: I50.9 Status: Acute (3) Iron deficiency anemia ICD Code: D50.9 Status: Acute (4) Atrial flutter ICD Code: I48.92 Status: Chronic (5) COPD (chronic obstructive pulmonary disease) ICD Code: J44.9 Status: Acute (6) Anticoagulated ICD Code: Z79.01 Status: Acute (7) GI (gastrointestinal bleed) ICD Code: K92.2 Status: Acute Acute Exacerbation of Chronic diastolic congestive Heart failure, automation controls specialist following, Continue Oxygen, Seen by automation controls specialist Doctor Sameera Thorne recommended to continue diuresis IV Lasix, continue torsemide, Spironolactone, Metolazone, Continue therapy for COPD, serial enzymes and EKG, recommended Anemia workup by GI specialist. as per GI continue awaiting for automation controls specialist for evaluation of patients Kathrinquis she refused this medicine from 10/20/16 may need to re start the medicine if no clear indication by automation controls specialist Atypical chest pain, Cardiac enzymes negative, automation controls specialist following COPD with possible Acute exacerbation to continue Bronchodilator, Mucolytic, incentive spirometry. No wheezing asked for CT Chest. Atrial Fibrillation on hold Eliquis. Cardiology following. Anemia instrumentation specialist following, she had multiple Transfusions, and asked for Iron IV. Acute on chronic renal failure will follow at this time on diuretics, Improving on diuretics. Lymphoma workers compensation specialist following. Follow CT Chest without contrast. DVT prop on SCDs Patient and her Daughter Mrs. Poole Overall all questions answered at the best of my abilities. Code Status Full code Discharge Planning Once cleared by Specialists. Ruiz Amos MD Oct 21, 2016 08:54
[2016-10-21] MEDS: IRON SUCROSE INJ 100 MG in SODIUM CHLORIDE 0.9% INJ 100 ML IV SCH (09:10)
[2016-10-21] MEDS: METOLAZONE 5 MG TAB PO SCH (09:11)
[2016-10-21] MEDS: PRAVASTATIN SOD 20 MG TAB PO SCH (09:11)
[2016-10-21] MEDS: RAMIPRIL 2.5 MG CAP PO SCH (09:11)
[2016-10-21] MEDS: guaiFENesin E.R. 600 MG TAB PO SCH ×2 (09:11→22:26)
[2016-10-21] MEDS: SERTRALINE HCL 50 MG TAB PO SCH (09:11)
[2016-10-21] MEDS: SPIRONOLACTONE 25 MG TAB PO SCH ×2 (09:11→16:38)
[2016-10-21] MEDS: SODIUM CHLORIDE 0.9% FLUSH 10 ML FLUSH IV FLUSH SCH ×2 (09:11→21:00)
[2016-10-21] MEDS: FERROUS SULFATE 325 MG (65 MG ELEMENTAL IRON) TAB PO SCH ×2 (09:11→22:26)
--- NOTE | 2016-10-21 11:38 | HHI.GIFU ---
Subjective Remarks ALERT FEELS ABOUT THE SAME NO ACTIVE BLEEDING DARK STOOLS HB 8.1 Objective Vitals I&O Vital Signs Date Time Temp Pulse Resp B/P Pulse Ox O2 Delivery O2 Flow Rate FiO2 10/21/16 09:32 60 10/21/16 08:19 94 Nasal Cannula 2.00 10/21/16 08:00 98.0 66 18 117/54 96 10/21/16 04:00 97.7 73 18 139/59 93 10/21/16 03:56 94 Nasal Cannula 2.00 10/21/16 00:00 97.5 72 18 119/52 95 10/20/16 23:47 94 Nasal Cannula 2.00 10/20/16 20:01 98 Nasal Cannula 2.00 10/20/16 20:00 97.7 66 18 121/59 97 10/20/16 20:00 60 10/20/16 16:23 98.0 62 18 116/57 95 10/20/16 12:31 97.9 78 19 119/53 94 10/20/16 12:00 65 I/O 10/20/16 10/20/16 10/20/16 10/21/16 10/21/16 10/21/16 07:00 15:00 23:00 07:00 15:00 23:00 Intake Total 100 ml 720 ml 240 ml 180 ml Output Total 725 ml 900 ml 600 ml 400 ml Balance -625 ml -180 ml -360 ml -220 ml Intake Oral 100 ml 720 ml 240 ml 180 ml Output Urine Total 725 ml 900 ml 600 ml 400 ml # Bowel Movements 0 1 0 Laboratory Laboratory Tests Test 10/21/16 04:40 White Blood Count 4.9 Red Blood Count 3.13 Hemoglobin 8.1 Hematocrit 25.1 Mean Corpuscular Volume 80.1 Mean Corpuscular Hemoglobin 25.7 Mean Corpuscular Hemoglobin 32.1 Concent Red Cell Distribution Width 17.6 Platelet Count 167 Mean Platelet Volume 7.3 Neutrophils (%) (Auto) 72.3 Lymphocytes (%) (Auto) 10.3 Monocytes (%) (Auto) 15.4 Eosinophils (%) (Auto) 1.4 Basophils (%) (Auto) 0.6 Neutrophils # (Auto) 3.6 Lymphocytes # (Auto) 0.5 Monocytes # (Auto) 0.8 Eosinophils # (Auto) 0.1 Basophils # (Auto) 0.0 CBC Comment DIFF FINAL Differential Comment Date/Time Procedure Status Source Growth 10/19/16 13:00 Stool Occult Blood (DEMETRIS) - Final Complete Stool Stool HEMOCCULT POSITIVE 10/18/16 13:00 Stool Occult Blood (DEMETRIS) Received Stool Stool Pending Physical Exam HEENT: Pupils round and reactive to light; normocephalic; atraumatic; no jaundice. Throat is clear. NECK: Neck is supple, no JVD, no lymphadenopathy. CHEST: Chest is clear to auscultation and percussion. CARDIAC: Regular rate and rhythm with no murmur gallop or rubs. ABDOMEN: Soft, nondistended, nontender; no hepatosplenomegaly; bowel sounds are present in all four quadrants. Assessment and Plan Assessment: (1) Anemia due to blood loss (2) Iron deficiency anemia (3) Melanotic stools Plan DISCUSSED CASE WITH DR MOFFETT ...OPTIONS VERY LIMITED AT THIS POINT...DB ENTEROCOPY AGAIN WOULD PROVE DIFFIICULT PROBABLY WITH SIMILAR RESULTS.....DISCUSSED THIS WITH DAUGHTER WELL...PT IS OFF ELIQUIS THERAPY AND THIS MAY HELP.... MONITOR H/H AND TRANSFUSE NEEDED.... Juwan Onofre MD Oct 21, 2016 11:38
[2016-10-21] MEDS: TORSEMIDE 20 MG TAB PO SCH (11:48)
[2016-10-22] VITALS (10 sets, daily range): BP systolic 101–124; BP diastolic 51–58; PULSE 59–72; RESP 16–18; TEMP 97.7–97.9; O2SAT 93–98
[2016-10-22] MEDS: RESP: IPRATROPIUM 0.5 MG/2.5 ML NEB NEB SCH ×6 (03:17→20:19)
[2016-10-22] MEDS: DOCUSATE SODIUM 100 MG CAP PO SCH ×2 (04:00→16:48)
[2016-10-22] MEDS: SPIRONOLACTONE 25 MG TAB PO SCH ×2 (09:00→16:48)
[2016-10-22] MEDS: FERROUS SULFATE 325 MG (65 MG ELEMENTAL IRON) TAB PO SCH ×2 (09:00→21:38)
[2016-10-22] MEDS: METOLAZONE 5 MG TAB PO SCH (09:00)
[2016-10-22] MEDS: SODIUM CHLORIDE 0.9% FLUSH 10 ML FLUSH IV FLUSH SCH ×2 (09:00→21:00)
[2016-10-22] MEDS: PANTOPRAZOLE SOD 20 MG DELAYED RELEASE TAB PO SCH (09:00)
[2016-10-22] MEDS: PRAVASTATIN SOD 20 MG TAB PO SCH (09:00)
[2016-10-22] MEDS: guaiFENesin E.R. 600 MG TAB PO SCH ×2 (09:00→21:38)
[2016-10-22] MEDS: SERTRALINE HCL 50 MG TAB PO SCH (09:00)
[2016-10-22] MEDS: TORSEMIDE 20 MG TAB PO SCH (09:00)
[2016-10-22] MEDS: RAMIPRIL 2.5 MG CAP PO SCH (09:00)
[2016-10-22 09:50] LABS: AUTOMATED NEUTROPHIL # 4.5 TH/MM3 (1.8-7.7); BASOPHIL % 0.3 % (0.0-2.0); EOSINOPHIL # 0.1 TH/MM3 (0-0.4); EOSINOPHIL % 1.5 % (0.0-4.0); HEMATOCRIT 27.7 % (35.0-46.0); HEMO FLAGS DIFF FINAL; LYMPH % 11.6 % (9.0-44.0); LYMPHOCYTE # 0.7 TH/MM3 (1.0-4.8); MEAN CELL VOLUME 80.3 FL (80.0-100.0); MEAN CORPUSCULAR HEMOGLOBIN 26.8 PG (27.0-34.0); MEAN CORPUSCULAR HGB CONC 33.4 % (32.0-36.0); MONO % 8.2 % (0.0-8.0); NEUT % 78.4 % (16.0-70.0); PLATELET COUNT 214 TH/MM3 (150-450); RED BLOOD COUNT 3.46 MIL/MM3 (4.00-5.30); RED CELL DISTRIBUTION WIDTH 17.9 % (11.6-17.2); WHITE BLOOD COUNT 5.8 TH/MM3 (4.0-11.0)
--- NOTE | 2016-10-22 11:30 | HHI.GIFU ---
Subjective Remarks ALERT NAD Objective Vitals I&O Vital Signs Date Time Temp Pulse Resp B/P Pulse Ox O2 Delivery O2 Flow Rate FiO2 10/22/16 09:07 59 10/22/16 09:07 Nasal Cannula 2.00 10/22/16 08:00 97.7 64 16 123/56 96 10/22/16 07:54 98 Nasal Cannula 2.00 10/22/16 04:00 97.7 63 18 101/51 93 10/22/16 00:32 68 10/22/16 00:00 97.9 70 18 116/51 95 10/21/16 22:40 Nasal Cannula 2.00 10/21/16 21:17 98 Nasal Cannula 2.00 10/21/16 20:00 97.5 62 18 126/55 98 10/21/16 16:00 97.9 60 18 112/71 98 10/21/16 12:00 97.7 61 18 116/72 98 I/O 10/21/16 10/21/16 10/21/16 10/22/16 10/22/16 10/22/16 07:00 15:00 23:00 07:00 15:00 23:00 Intake Total 180 ml 360 ml 240 ml 100 ml Output Total 400 ml 300 ml Balance -220 ml 360 ml -60 ml 100 ml Intake Oral 180 ml 360 ml 240 ml 100 ml Output Urine Total 400 ml 300 ml # Voids 3 1 # Bowel Movements 0 0 0 Laboratory Laboratory Tests Test 10/22/16 09:00 White Blood Count 5.8 Red Blood Count 3.46 Hemoglobin 9.3 Hematocrit 27.7 Mean Corpuscular Volume 80.3 Mean Corpuscular Hemoglobin 26.8 Mean Corpuscular Hemoglobin 33.4 Concent Red Cell Distribution Width 17.9 Platelet Count 214 Mean Platelet Volume 7.5 Neutrophils (%) (Auto) 78.4 Lymphocytes (%) (Auto) 11.6 Monocytes (%) (Auto) 8.2 Eosinophils (%) (Auto) 1.5 Basophils (%) (Auto) 0.3 Neutrophils # (Auto) 4.5 Lymphocytes # (Auto) 0.7 Monocytes # (Auto) 0.5 Eosinophils # (Auto) 0.1 Basophils # (Auto) 0.0 CBC Comment DIFF FINAL Differential Comment Date/Time Procedure Status Source Growth 10/19/16 13:00 Stool Occult Blood (DEMETRIS) - Final Complete Stool Stool HEMOCCULT POSITIVE 10/18/16 13:00 Stool Occult Blood (DEMETRIS) Received Stool Stool Pending Physical Exam HEENT: Pupils round and reactive to light; normocephalic; atraumatic; no jaundice. Throat is clear. NECK: Neck is supple, no JVD, no lymphadenopathy. CHEST: Chest is clear to auscultation and percussion. CARDIAC: Regular rate and rhythm with no murmur gallop or rubs. ABDOMEN: Soft, nondistended, nontender; no hepatosplenomegaly; bowel sounds are present in all four quadrants. Assessment and Plan Assessment: (1) Anemia due to blood loss (2) Iron deficiency anemia (3) Melanotic stools Plan PT APPEARS STABLE GI AWAITING CARDIOLOGY INPUT ???D/C ANTICOAG THERAPY....OTHERWISE PT WILL FU W DR MOFFETT AFTER D/C DISCUSSED W PT AND DAUGHTER THANKS Juwan Onofre MD Oct 22, 2016 11:29
--- NOTE | 2016-10-22 15:08 | HHI.PR ---
Subjective Remarks Patient is a pleasant 81-year-old female who has a past medical history of COPD, CHF, iron deficiency anemia, lymphoma, A. fib A flutter on Eliquis who came into the hospital with complaints of increasing bilateral lower extremity edema and shortness of breath. Patient states that she was just recently admitted in August with the same symptoms of worsening edema and shortness of breath. She states that she's been having on and off edema and is on diuretics. However, since last she has increasing shortness of breath and bilateral lower extremity edema that she was told by her acting teacher Dr. Roger to increase her dose of diuretics. Patient has been on an increased dose but states that is not helping her. She saw Dr. Roger this morning and was told to come to the hospital for further evaluation. Patient recently has undergone cardiac catheterization 09/22/16 in [place] complicated by hematoma in the left thigh area, ultrasound Doppler was negative. She is also being followed by Dr. Conrad and had received blood transfusions 2 in the first week of September, completed 5 doses of IV iron transfusions. Patient states that she has some dark stools but is unknown to her whether she has noted any blood in the stool or not because she is on iron transfusions. Patient has A. fib a flutter on Eliquis 2.5 mg twice a day. States she previously have some gastric bleeding and had an EGD and colonoscopy last year that showed she has some ?bleeding/ulceration. Patient also complains of some chest pressure, dizziness, weakness and headaches. 10/19: Seen in her bedroom in the presence of her Daughter in the room, she continue with Shortness of breath, license and permit specialist following also asked for her Hematology and health insurance specialist Doctor Houston asked for a consult. had two units of PRBCs following. no crackles on this evaluation but has bilateral Leg Edema 3+, 10/20: Seen in her bedroom, discussed with her and her Daughter Miss Poole Overall, no Nausea, vomit or diarrhea, continue with Leg Edema 3+, on Hold Eliquis until recommended to be re started by GI specialist. Hemoglobin Trending down after blood transfusion 10/21: Stable improved leg edema today, discussed with nurse Miss Titus, as per license and permit specialist continue diuresis, no new issues. but as per patient continue the same shortness of breath and Cough. 10/22: Seen in the room in the presence of her Daughter and discussed with nurse Miss Titus patient refused Eliquis on 10/20/16 but no clear recommendations by Cardiology to stop this medicine, say continue anticoagulation, re started her Eliquis today, also will follow final recommendations by Hematology and Oncology by tomorrow and by GI to discharge patient and follow by PCP and Oncology as outpatient. Objective Vital Signs Date Time Temp Pulse Resp B/P Pulse Ox O2 Delivery O2 Flow Rate FiO2 10/22/16 12:00 97.8 64 16 113/54 97 10/22/16 09:07 59 10/22/16 09:07 Nasal Cannula 2.00 10/22/16 08:00 97.7 64 16 123/56 96 10/22/16 07:54 98 Nasal Cannula 2.00 10/22/16 04:00 97.7 63 18 101/51 93 10/22/16 00:32 68 10/22/16 00:00 97.9 70 18 116/51 95 10/21/16 22:40 Nasal Cannula 2.00 10/21/16 21:17 98 Nasal Cannula 2.00 10/21/16 20:00 97.5 62 18 126/55 98 10/21/16 16:00 97.9 60 18 112/71 98 I/O 10/21/16 10/21/16 10/21/16 10/22/16 10/22/16 10/22/16 07:00 15:00 23:00 07:00 15:00 23:00 Intake Total 180 ml 360 ml 240 ml 100 ml Output Total 400 ml 300 ml Balance -220 ml 360 ml -60 ml 100 ml Intake Oral 180 ml 360 ml 240 ml 100 ml Output Urine Total 400 ml 300 ml # Voids 3 1 # Bowel Movements 0 0 0 Result Diagram: 10/22/16 0900 10/20/16 0627 Imaging Last Impressions Chest CT 10/20/16 0000 Signed Impressions: Service Date/Time: Thursday, October 20, 2016 14:54 - CONCLUSION: Small bilateral pleural effusions and bibasilar atelectasis and/or infiltrate. Berenice Soto MD Chest X-Ray 10/18/16 0000 Signed Impressions: Service Date/Time: Tuesday, October 18, 2016 13:34 - CONCLUSION: Mild congestive failure. Blair Gamble MD FACR Procedures No procedures performed. Other Results Laboratory Tests Test 10/18/16 10/18/16 10/18/16 10/19/16 13:00 14:00 14:09 01:30 Urine Color LIGHT-YELLOW Urine Turbidity CLEAR Urine pH 5.0 Urine Specific [place] 1.008 Urine Protein NEG mg/dL Urine Glucose (UA) NEG mg/dL Urine Ketones NEG mg/dL Urine Occult Blood NEG Urine Nitrite NEG Urine Bilirubin NEG Urine Urobilinogen LESS THAN 2.0 MG/DL Urine Leukocyte Esterase TRACE Urine RBC LESS THAN 1 /hpf Urine WBC 2 /hpf Urine Squamous Epithelial 1 /hpf Cells Urine Hyaline Casts 11 /lpf Urine Mucus FEW /lpf Microscopic Urinalysis Comment CULT NOT INDICATED Activated Partial 62.4 SEC Thromboplast Time B-Type Natriuretic Peptide 735 PG/ML Blood Type O NEGATIVE Antibody Screen NEGATIVE Crossmatch Leukocyte-Reduced Red Blood Cells Blood Bank Comment Total Bilirubin 1.8 MG/DL Aspartate Amino Transf 11 U/L (AST/SGOT) Alanine Aminotransferase 11 U/L (ALT/SGPT) Alkaline Phosphatase 66 U/L Troponin I 0.03 NG/ML Total Protein 5.4 GM/DL Albumin 3.0 GM/DL Test 10/19/16 10/20/16 10/22/16 07:24 06:27 09:00 Prothrombin Time 11.5 SEC Prothromb Time International 1.0 RATIO Ratio Sodium Level 139 MEQ/L Potassium Level 4.4 MEQ/L Chloride Level 104 MEQ/L Carbon Dioxide Level 28.9 MEQ/L Anion Gap 6 MEQ/L Blood Urea Nitrogen 59 MG/DL Creatinine 1.51 MG/DL Estimat Glomerular Filtration 33 ML/MIN Rate Random Glucose 92 MG/DL Calcium Level 8.3 MG/DL Magnesium Level 2.5 MG/DL White Blood Count 5.8 TH/MM3 Red Blood Count 3.46 MIL/MM3 Hemoglobin 9.3 GM/DL Hematocrit 27.7 % Mean Corpuscular Volume 80.3 FL Mean Corpuscular Hemoglobin 26.8 PG Mean Corpuscular Hemoglobin 33.4 % Concent Red Cell Distribution Width 17.9 % Platelet Count 214 TH/MM3 Mean Platelet Volume 7.5 FL Neutrophils (%) (Auto) 78.4 % Lymphocytes (%) (Auto) 11.6 % Monocytes (%) (Auto) 8.2 % Eosinophils (%) (Auto) 1.5 % Basophils (%) (Auto) 0.3 % Neutrophils # (Auto) 4.5 TH/MM3 Lymphocytes # (Auto) 0.7 TH/MM3 Monocytes # (Auto) 0.5 TH/MM3 Eosinophils # (Auto) 0.1 TH/MM3 Basophils # (Auto) 0.0 TH/MM3 CBC Comment DIFF FINAL Differential Comment Objective Remarks GENERAL: mildly ill-appearing, short of breath. SKIN: warm and dry. HEAD: Atraumatic. Normocephalic. No temporal or scalp tenderness. EYES: Pupils equal round and reactive. No scleral icterus. No injection or drainage. ENT: Nose without bleeding. Throat without erythema. Uvula midline. Airway patent. NECK: Trachea midline. No JVD or lymphadenopathy. CARDIOVASCULAR: Regular rate and rhythm without murmurs, gallops, or rubs. RESPIRATORY: Decreased Breath sounds bilateral, crackles on Left lower base. GASTROINTESTINAL: Abdomen soft, non-tender, nondistended. No hepato-splenomegaly , or palpable masses. No guarding. MUSCULOSKELETAL: Extremities without clubbing, cyanosis, No Edema on bilateral legs. NEUROLOGICAL: Awake and alert. Oriented x 3. no focal deficits. Medications and IVs Current Medications Medications (Trade) Dose Ordered Sig/Andree Route Start Time Stop Time Status Last Admin (Eliquis) 2.5 mg BID PO 10/18/16 21:00 Hold 10/19/16 20:18 (Ferrous Sulfate) 325 mg BID PO 10/18/16 21:00 10/22/16 09:00 (Zaroxolyn) 5 mg DAILY PO 10/19/16 09:00 10/22/16 09:00 (Pravachol) 20 mg DAILY PO 10/19/16 09:00 10/22/16 09:00 (Altace) 2.5 mg DAILY PO 10/19/16 09:00 10/22/16 09:00 (Zoloft) 50 mg DAILY PO 10/19/16 09:00 10/22/16 09:00 (Aldactone) 25 mg BIDPC PO 10/18/16 18:00 10/22/16 09:00 (Demadex) 40 mg DAILY PO 10/19/16 09:00 10/22/16 09:00 (NS Flush) 2 ml UNSCH PRN IV FLUSH 10/18/16 15:30 (NS Flush) 2 ml BID IV FLUSH 10/18/16 21:00 10/22/16 09:00 (Tylenol) 650 mg Q4H PRN PO 10/18/16 15:30 (Zofran Inj) 4 mg Q6H PRN IVP 10/18/16 15:30 (Dulcolax Supp) 10 mg DAILY PRN RECTAL 10/18/16 15:30 (Colace) 100 mg Q12H PO 10/18/16 16:00 10/22/16 04:00 (Narcan Inj) 0.4 mg UNSCH PRN IV 10/18/16 15:30 (Mucinex Er) 600 mg BID PO 10/18/16 21:00 10/22/16 09:00 (Mccaskill 5-325 Mg) 1 tab Q4H PRN PO 10/20/16 09:30 10/20/16 22:14 A/P Assessment and Plan (1) MARIA G (acute kidney injury) ICD Code: N17.9 Status: Acute (2) CHF exacerbation ICD Code: I50.9 Status: Acute (3) Iron deficiency anemia ICD Code: D50.9 Status: Acute (4) Atrial flutter ICD Code: I48.92 Status: Chronic (5) COPD (chronic obstructive pulmonary disease) ICD Code: J44.9 Status: Acute (6) Anticoagulated ICD Code: Z79.01 Status: Acute (7) GI (gastrointestinal bleed) ICD Code: K92.2 Status: Acute Acute Exacerbation of Chronic diastolic congestive Heart failure, license and permit specialist following, Continue Oxygen, Seen by license and permit specialist Doctor Sameera Thorne continued initially IV Lasix and continued torsemide, Spironolactone, Metolazone, Continue therapy for COPD, serial enzymes and EKG, recommended Anemia workup by GI specialist. as per GI continue awaiting for license and permit specialist for evaluation of patients Eliquis she refused this medicine from 10/20/16 but as per license and permit specialist to continue anticoagulation written on 10/20/16 Re started today. Atypical chest pain, Cardiac enzymes negative, license and permit specialist following COPD with possible Acute exacerbation to continue Bronchodilator, Mucolytic, incentive spirometry. No wheezing asked for CT Chest. continue with Cough. add budesonide inhaler. Atrial Fibrillation on Eliquis recommended to continue by Cardiology following. Anemia information security specialist following, she had multiple Transfusions, and asked for Iron IV. Hemoglobin 9.3 Acute on chronic renal failure will follow at this time on diuretics, Improving on diuretics. following in am tomorrow. Lymphoma health insurance specialist following. Follow CT Chest without contrast. DVT prop on Eliquis. Patient and her Daughter Mrs. Poole Overall all questions answered at the best of my abilities. Code Status Full code Discharge Planning Expected for tomorrow in AM. Ruiz Amos MD Oct 22, 2016 15:08
[2016-10-22] MEDS: APIXABAN 2.5 MG TABLET PO SCH ×2 (16:48→21:38)
[2016-10-22] MEDS: RESP: BUDESONIDE 0.5 MG/2 ML NEB NEB SCH (20:23)
[2016-10-22] MEDS ORDERED: APIXABAN 2.5 MG TABLET PO SCH (21:00)
[2016-10-23] VITALS (10 sets, daily range): BP systolic 110–130; BP diastolic 49–70; PULSE 60–75; RESP 18–20; TEMP 97.5–97.9; O2SAT 95–96
[2016-10-23] MEDS: RESP: IPRATROPIUM 0.5 MG/2.5 ML NEB NEB SCH ×6 (01:45→20:29)
[2016-10-23] MEDS: DOCUSATE SODIUM 100 MG CAP PO SCH ×2 (04:00→16:38)
[2016-10-23] MEDS: SPIRONOLACTONE 25 MG TAB PO SCH ×2 (08:12→17:07)
[2016-10-23] MEDS: PRAVASTATIN SOD 20 MG TAB PO SCH (08:12)
[2016-10-23] MEDS: SODIUM CHLORIDE 0.9% FLUSH 10 ML FLUSH IV FLUSH SCH ×2 (08:12→20:51)
[2016-10-23] MEDS: FERROUS SULFATE 325 MG (65 MG ELEMENTAL IRON) TAB PO SCH ×2 (08:13→20:51)
[2016-10-23] MEDS: guaiFENesin E.R. 600 MG TAB PO SCH ×2 (08:13→20:51)
[2016-10-23] MEDS: RAMIPRIL 2.5 MG CAP PO SCH (08:13)
[2016-10-23] MEDS: TORSEMIDE 20 MG TAB PO SCH (08:13)
[2016-10-23] MEDS: SERTRALINE HCL 50 MG TAB PO SCH (08:13)
[2016-10-23] MEDS: APIXABAN 2.5 MG TABLET PO SCH (08:14)
[2016-10-23] MEDS: METOLAZONE 5 MG TAB PO SCH (08:14)
[2016-10-23] MEDS: RESP: BUDESONIDE 0.5 MG/2 ML NEB NEB SCH ×2 (08:33→20:29)
[2016-10-23] MEDS ORDERED: IRON SUCROSE INJ 200 MG in SODIUM CHLORIDE 0.9% INJ 100 ML IV ONE (11:00)
--- NOTE | 2016-10-23 11:23 | HHI.HCPN ---
Met with Ms. Berman and daughter at bedside. Both confirm desire to meet with hospice to discuss services and possibly discharge home with hospice. Ms. Berman inquires about her iron management and potential need for blood. Briefly reviewed hospice philosophy and she again confirms desire to speak with them. Informed case management who will contact hospice to arrange meeting. Daughter will be at hospital and available anytime today. Provided palliative care contact information. Will continue to follow as needed. Halley Santamaria, FINISHED GARMENT INSPECTOR Oct 23, 2016 11:23
--- NOTE | 2016-10-23 11:37 | PD.ONC.PN ---
Subjective Subjective Remarks Afebrile overnight. Patient resting comfortably. Daughter at bedside. Tolerating O2 @ 1.5L. Objective Data Date Time Temp Pulse Resp B/P Pulse Ox O2 Delivery O2 Flow Rate FiO2 10/23/16 10:34 60 10/23/16 08:34 96 Nasal Cannula 1.50 10/23/16 08:17 Nasal Cannula 2.00 10/23/16 08:10 72 123/70 10/23/16 08:00 97.5 62 20 110/49 96 10/23/16 04:00 97.5 65 18 111/58 96 10/23/16 00:00 97.7 75 18 130/57 95 10/22/16 21:41 Nasal Cannula 2.00 10/22/16 20:21 96 Nasal Cannula 1.00 10/22/16 20:00 97.8 68 18 124/58 96 10/22/16 16:00 97.9 72 16 116/55 97 10/22/16 12:00 97.8 64 16 113/54 97 10/23/16 10/23/16 10/23/16 07:00 15:00 23:00 Intake Total 240 ml Output Total 500 ml Balance -260 ml Result Diagram: 10/22/16 0900 10/20/16626 Administered Medications Medications (Trade) Dose Ordered Sig/Andree Route PRN Reason Start Time Stop Time Status Last Admin Dose Admin Ferrous Sulfate (Ferrous Sulfate) 325 mg BID PO 10/18/16 21:00 10/23/16 08:13 Metolazone (Zaroxolyn) 5 mg DAILY PO 10/19/16 09:00 10/23/16 08:14 Pravastatin Sodium (Pravachol) 20 mg DAILY PO 10/19/16 09:00 10/23/16 08:12 Ramipril (Altace) 2.5 mg DAILY PO 10/19/16 09:00 10/23/16 08:13 Sertraline HCl (Zoloft) 50 mg DAILY PO 10/19/16 09:00 10/23/16 08:13 Spironolactone (Aldactone) 25 mg BIDPC PO 10/18/16 18:00 10/23/16 08:12 Torsemide (Demadex) 40 mg DAILY PO 10/19/16 09:00 10/23/16 08:13 Sodium Chloride (NS Flush) 2 ml BID IV FLUSH 10/18/16 21:00 10/23/16 08:12 Docusate Sodium (Colace) 100 mg Q12H PO 10/18/16 16:00 10/22/16 04:00 Guaifenesin (Mucinex Er) 600 mg BID PO 10/18/16 21:00 10/23/16 08:13 Acetaminophen/ Hydrocodone Bitart 1 tab 1 tab Q4H PRN PO pain 1-10 10/20/16 09:30 10/20/16 22:14 Iron Sucrose/ Sodium Chloride (Venofer Inj/NS Inj) 110 ml @ 110 mls/hr ONCE ONCE IV 10/23/16 11:00 10/23/16 11:59 10/23/16 11:26 Objective Remarks GENERAL: Elderly female, sitting up in chair next to bed on 1.5L O2 via NC SKIN: Warm and dry. HEAD: Normocephalic. EYES: No injection or drainage. NECK: Supple, trachea midline. CARDIOVASCULAR: Regular rate and rhythm RESPIRATORY: Breath sounds equal bilaterally. No accessory muscle use. GASTROINTESTINAL: Abdomen soft, non-tender, nondistended. EXTREMITIES: No cyanosis NEUROLOGICAL: No obvious focal deficit. Awake, alert, and oriented x3. Assessment/Plan Problem List: (1) Anemia due to blood loss Status: Acute Plan: --Anemia with microcytosis consistent with iron deficiency anemia. ++occult GI bleed. (GI consulted) --history of bleeding AV malformation. --had an enteroscopy with ablation of the AV malformation in May of 2016 ( done in [place]) --has been getting periodic transfusions as well as Venofer iron infusion. --presented with hemoglobin 6.7 and she developed iron deficiency again. Eliquis has likely increased her risk of bleeding. (2) Follicular lymphoma Status: Acute Plan: --History of follicular lymphoma, stage IV diagnosed in 2006. Bone marrow was involved. --was treated with Rituxan CVP followed by two years of rituxan maintenance therapy completed in 2009. --last CT scan did not show any recurrent disease. (3) CHF exacerbation Status: Acute Plan: --followed by cardiology ([facility]) --sees Dr. Zamudio outpatient Assessment 81y/o female admitted with dyspnea and bilateral lower extremity edema. Hematology consulted for anemia. history of non-Hodgkin's lymphoma, anemia due to GI bleed and congestive heart failure Chronic obstructive pulmonary disease. Chronic atrial fibrillation. Osteoarthritis. Pulmonary hypertension. Aortic insufficiency History of GI bleed due to AV malformation and gastric ulcer. Mitral regurgitation Plan 1. Give IV Venofer 200mg x 1 2. patient and daughter would like to speak with hospice, will place consult 3. d/w patient option of continuing Eliquis and monitoring hemoglobin and likely further GIB or stopping Eliquis with higher risk of stroke/blood clot. She and her daughter discussed it and would like to stop the Eliquis. will d/c Attending Statement The exam, history, and the medical decision-making described in the above note were completed with the assistance of the mid-level provider. I reviewed and agree with the findings presented. I attest that I had a [id number] encounter with the patient on the same day, and personally performed and documented my assessment and findings in the medical record. Still weak. + blood in stool last night. Had extensive discussion with patient and daughter regarding the dilemma of competing needs. With the Elilquis, she is going to have recurrent GIB. Without it , she has increased risk of stroke. They have decided to stop the Eliquis. Pt's daughter is also inquiring about hospice. Will consult hospice. Give another venofer today. Problem Qualifiers (1) CHF exacerbation: Qualified Code: I50.33 - Acute on chronic diastolic congestive heart failure Dorys Knapp Oct 23, 2016 11:37 Pietro Conrad MD Oct 23, 2016 16:05
[2016-10-23 13:09] LABS: AUTOMATED NEUTROPHIL # 4.6 TH/MM3 (1.8-7.7); BASOPHIL % 0.4 % (0.0-2.0); EOSINOPHIL # 0.1 TH/MM3 (0-0.4); EOSINOPHIL % 1.5 % (0.0-4.0); HEMATOCRIT 28.3 % (35.0-46.0); HEMO FLAGS DIFF FINAL; LYMPH % 13.8 % (9.0-44.0); LYMPHOCYTE # 0.9 TH/MM3 (1.0-4.8); MEAN CELL VOLUME 80.5 FL (80.0-100.0); MEAN CORPUSCULAR HEMOGLOBIN 25.5 PG (27.0-34.0); MEAN CORPUSCULAR HGB CONC 31.6 % (32.0-36.0); MONO % 12.5 % (0.0-8.0); NEUT % 71.8 % (16.0-70.0); PLATELET COUNT 209 TH/MM3 (150-450); RED BLOOD COUNT 3.52 MIL/MM3 (4.00-5.30); RED CELL DISTRIBUTION WIDTH 17.8 % (11.6-17.2); WHITE BLOOD COUNT 6.3 TH/MM3 (4.0-11.0)
[2016-10-23 13:39] LABS: BICARBONATE 32.1 MEQ/L (21.0-32.0); POTASSIUM 4.5 MEQ/L (3.5-5.1)
--- NOTE | 2016-10-23 15:55 | HHI.PR ---
Subjective Remarks f/u for respiratory failure patient stated breathing has improved drastically. she is very anxious to go home and is asking to home. Per daughter she thought patient was going home with hospice. patient stated she saw a little blood in stools once yesterday but has been normal since then. Objective Vitals Vital Signs Date Time Temp Pulse Resp B/P Pulse Ox O2 Delivery O2 Flow Rate FiO2 10/23/16 12:00 97.6 61 20 112/49 96 10/23/16 10:34 60 10/23/16 08:34 96 Nasal Cannula 1.50 10/23/16 08:17 Nasal Cannula 2.00 10/23/16 08:10 72 123/70 10/23/16 08:00 97.5 62 20 110/49 96 10/23/16 04:00 97.5 65 18 111/58 96 10/23/16 00:00 97.7 75 18 130/57 95 10/22/16 21:41 Nasal Cannula 2.00 10/22/16 20:21 96 Nasal Cannula 1.00 10/22/16 20:00 97.8 68 18 124/58 96 10/22/16 16:00 97.9 72 16 116/55 97 I/O 10/22/16 10/22/16 10/22/16 10/23/16 10/23/16 10/23/16 06:59 14:59 22:59 06:59 14:59 22:59 Intake Total 100 ml 240 ml 240 ml Output Total 200 ml 500 ml Balance 100 ml 40 ml -260 ml Intake Oral 100 ml 240 ml 240 ml Output Urine Total 200 ml 500 ml # Voids 1 # Bowel Movements 0 0 2 Result Diagram: 10/23/16 1250 10/23/16 1250 Objective Remarks GENERAL:in NAD CARDIOVASCULAR: Regular rate and rhythm without murmurs, gallops, or rubs. RESPIRATORY: Breath sounds equal bilaterally. No accessory muscle use. GASTROINTESTINAL: Abdomen soft, non-tender, nondistended. MUSCULOSKELETAL: No cyanosis, or edema. BACK: Nontender without obvious deformity. No CVA tenderness. Medications and IVs Current Medications Sodium Chloride (NS 250 ml Inj) 250 ml @ 15 mls/hr ONCE ONCE IV Last administered on 10/18/16t 14:12; Start 10/18/16 at 13:45; Stop 10/19/16 at 06:24 ; Status DC Furosemide (Lasix Inj) 40 mg ONCE ONCE IV PUSH Last administered on 10/18/16 14:12; Start 10/18/16 at 14:15; Stop 10/18/16 at 14:16; Status DC Apixaban (Eliquis) 2.5 mg BID PO Last administered on 10/19/16 20:18; Start at 21:00; Stop 10/23/16 at 09:42; Status DC Ferrous Sulfate (Ferrous Sulfate) 325 mg BID PO Last administered on 10/23/16 08:13; Start 10/18/16 at 21:00 Metolazone (Zaroxolyn) 5 mg DAILY PO Last administered on 10/23/16 08:14; Start 10/19/16 at 09:00 Pravastatin Sodium (Pravachol) 20 mg DAILY PO Last administered on 10/23/16 08 :12; Start 10/19/16 at 09:00 Ramipril (Altace) 2.5 mg DAILY PO Last administered on 10/23/16 08:13; Start 10/19/16 at 09:00 Sertraline HCl (Zoloft) 50 mg DAILY PO Last administered on 10/23/16 08:13; Start 10/19/16 at 09:00 Spironolactone (Aldactone) 25 mg BIDPC PO Last administered on 10/23/16 08:12 ; Start 10/18/16 at 18:00 Torsemide (Demadex) 40 mg DAILY PO Last administered on 10/23/16 08:13; Start 10/19/16 at 09:00 Pantoprazole Sodium (Protonix) 20 mg EVERY OTHER DAY PO Last administered on 09:00; Start 10/20/16 at 09:00 Sodium Chloride (NS Flush) 2 ml UNSCH PRN IV FLUSH FLUSH AFTER USING IV ACCESS ; Start 10/18/16 at 15:30 Sodium Chloride (NS Flush) 2 ml BID IV FLUSH Last administered on 10/23/16 08: 12; Start 10/18/16 at 21:00 Acetaminophen (Tylenol) 650 mg Q4H PRN PO TEMP > 100.4; Start 10/18/16 at 15:30 Ondansetron HCl (Zofran Inj) 4 mg Q6H PRN IVP NAUSEA OR VOMITING; Start at 15:30 Bisacodyl (Dulcolax Supp) 10 mg DAILY PRN RECTAL CONSTIPATION; Start 10/18/16 at 15:30 Docusate Sodium (Colace) 100 mg Q12H PO Last administered on 10/22/16 04:00; Start 10/18/16 at 16:00 Naloxone HCl (Narcan Inj) 0.4 mg UNSCH PRN IV SEE LABEL COMMENTS; Start at 15:30 Furosemide (Lasix Inj) 40 mg Q8HR IV PUSH Last administered on 10/19/16 06:35 ; Start 10/18/16 at 22:00; Stop 10/19/16 at 07:00; Status DC Ipratropium [place] (Atrovent Neb) 0.5 mg Q4HR NEB NEB Last administered on 08:33; Start 10/18/16 at 16:00 Guaifenesin 600 mg 600 mg BID PO Last administered on 10/23/16 08:13; Start at 21:00 Sodium Chloride (NS 250 ml Inj) 250 ml @ 15 mls/hr ONCE ONCE IV ; Start at 16:45; Stop 10/19/16 at 09:24; Status UNV Furosemide (Lasix Inj) 40 mg ONCE ONCE IV Last administered on 10/18/16 23:35 ; Start 10/18/16 at 17:00; Stop 10/18/16 at 17:01; Status DC Acetaminophen/ Hydrocodone Bitart 1 tab 1 tab Q4H PRN PO pain 1-10 Last administered on 10/20/16 22:14; Start 10/20/16 at 09:30 Iron Sucrose/ Sodium Chloride (Venofer Inj/NS Inj) 105 ml @ 105 mls/hr DAILY IV Last administered on 10/21/16 09:10; Start 10/20/16 at 12:00; Stop at 09:59; Status DC Apixaban (Eliquis) 2.5 mg BID PO ; Start 10/22/16 at 21:00; Stop 10/22/16 at 21: 00; Status DC Apixaban (Eliquis) 2.5 mg BID PO Last administered on 10/23/16 08:14; Start at 16:00; Stop 10/23/16 at 09:42; Status DC Budesonide 0.5 mg 0.5 mg Q12HR NEB NEB Last administered on 10/23/16 08:33; Start 10/22/16 at 20:00 Iron Sucrose/ Sodium Chloride (Venofer Inj/NS Inj) 110 ml @ 110 mls/hr ONCE ONCE IV Last administered on 10/23/16 11:26; Start 10/23/16 at 11:00; Stop at 11:59; Status DC A/P Problem List: (1) MARIA G (acute kidney injury) ICD Code: N17.9 Status: Acute (2) CHF exacerbation ICD Code: I50.9 Status: Acute (3) Iron deficiency anemia ICD Code: D50.9 Status: Acute (4) Atrial flutter ICD Code: I48.92 Status: Chronic (5) COPD (chronic obstructive pulmonary disease) ICD Code: J44.9 Status: Acute (6) Anticoagulated ICD Code: Z79.01 Status: Acute (7) GI (gastrointestinal bleed) ICD Code: K92.2 Status: Acute Assessment and Plan Acute Exacerbation of Chronic diastolic congestive Heart failure -stable -Continue Oxygen, Seen by software development specialist Doctor Sameera Thorne s/p david. -CT scan of chest shows small amount of pleural effusion. -currently on torsemide, Spironolactone, Metolazone. Atypical chest pain - Cardiac enzymes negative. -resolved. COPD with possible Acute exacerbation -RESOLVED -on Bronchodilator PRN, Mucolytic, incentive spirometry. No wheezing Atrial Fibrillation on chronic anticoagulation -rate controlled. -automobiles salesperson recommend eliquis but patient declined due to anemia from most likely GI source. GI and caddie also do not recommend eliquis which was d/ c by them. -i explained to patient and her daughter at the bedside the risk, benefits and side effects of eliquis. Patient and daughter understood and DO NOT want to restart eliquis. She understands that this does increase her risk of CVA. Anemia -s/p Transfusions, and asked for Iron IV. Hemoglobin 9.3 -most likely GI source. + Hemoccult stool. Acute on chronic renal failure -stable -avoid nephrotoxins. Lymphoma - infection control specialist following. DVT -SCDs. Discharge Planning patient wants to go home with hospice. d/w case management and palliative care in regards to arrangement. patient is medical cleared but waiting for arrangements with hospice. Problem Qualifiers (1) CHF exacerbation: Qualified Code: I50.33 - Acute on chronic diastolic congestive heart failure Lina Elmore MD Oct 23, 2016 15:55
[2016-10-24] VITALS: BP 110/55; PULSE 70; RESP 18; TEMP 97.7; O2SAT 93
[2016-10-24] MEDS: RESP: IPRATROPIUM 0.5 MG/2.5 ML NEB NEB SCH ×4 (00:38→12:24)
[2016-10-24 04:00] VITALS: BP 107/58; PULSE 60; RESP 18; TEMP 97.4; O2SAT 93
[2016-10-24] MEDS: DOCUSATE SODIUM 100 MG CAP PO SCH (04:00)
[2016-10-24 07:51] VITALS: PULSE 77
[2016-10-24 08:00] VITALS: BP 141/56; PULSE 63; RESP 18; TEMP 97.6; O2SAT 95
[2016-10-24] MEDS: guaiFENesin E.R. 600 MG TAB PO SCH (08:22)
[2016-10-24] MEDS: SERTRALINE HCL 50 MG TAB PO SCH (08:22)
[2016-10-24] MEDS: TORSEMIDE 20 MG TAB PO SCH (08:23)
[2016-10-24] MEDS: RAMIPRIL 2.5 MG CAP PO SCH (08:23)
[2016-10-24] MEDS: METOLAZONE 5 MG TAB PO SCH (08:23)
[2016-10-24] MEDS: PRAVASTATIN SOD 20 MG TAB PO SCH (08:23)
[2016-10-24] MEDS: FERROUS SULFATE 325 MG (65 MG ELEMENTAL IRON) TAB PO SCH (08:23)
[2016-10-24] MEDS: PANTOPRAZOLE SOD 20 MG DELAYED RELEASE TAB PO SCH (08:23)
[2016-10-24] MEDS: SODIUM CHLORIDE 0.9% FLUSH 10 ML FLUSH IV FLUSH SCH (08:24)
[2016-10-24] MEDS: SPIRONOLACTONE 25 MG TAB PO SCH (08:24)
[2016-10-24] MEDS: RESP: BUDESONIDE 0.5 MG/2 ML NEB NEB SCH (08:34)
[2016-10-24 08:36] VITALS: O2SAT 95
--- NOTE | 2016-10-24 11:06 | PD.ONC.PN ---
Subjective Subjective Remarks Afebrile overnight. She noticed some blood in her stool this morning. She has decided against hospice. She would like to go home today. She denies pain. Objective Data Date Time Temp Pulse Resp B/P Pulse Ox O2 Delivery O2 Flow Rate FiO2 10/24/16 09:23 Nasal Cannula 2.00 10/24/16 08:36 95 Nasal Cannula 1.00 10/24/16 08:00 97.6 63 18 141/56 95 10/24/16 07:51 77 10/24/16 04:00 97.4 60 18 107/58 93 10/24/16 00:00 97.7 70 18 110/55 93 10/23/16 20:29 96 Nasal Cannula 2.00 10/23/16 20:00 97.6 60 18 122/53 95 10/23/16 20:00 66 10/23/16 20:00 Nasal Cannula 2.00 10/23/16 16:00 97.9 66 20 113/58 96 10/23/16 12:00 97.6 61 20 112/49 96 10/24/16 10/24/16 10/24/16 07:00 15:00 23:00 Intake Total 120 ml Output Total 350 ml Balance -230 ml Result Diagram: 10/23/16 1250 10/23/16 1250 Laboratory Results Laboratory Tests Test 10/23/16 12:50 White Blood Count 6.3 TH/MM3 Red Blood Count 3.52 MIL/MM3 Hemoglobin 9.0 GM/DL Hematocrit 28.3 % Mean Corpuscular Volume 80.5 FL Mean Corpuscular Hemoglobin 25.5 PG Mean Corpuscular Hemoglobin 31.6 % Concent Red Cell Distribution Width 17.8 % Platelet Count 209 TH/MM3 Mean Platelet Volume 7.6 FL Neutrophils (%) (Auto) 71.8 % Lymphocytes (%) (Auto) 13.8 % Monocytes (%) (Auto) 12.5 % Eosinophils (%) (Auto) 1.5 % Basophils (%) (Auto) 0.4 % Neutrophils # (Auto) 4.6 TH/MM3 Lymphocytes # (Auto) 0.9 TH/MM3 Monocytes # (Auto) 0.8 TH/MM3 Eosinophils # (Auto) 0.1 TH/MM3 Basophils # (Auto) 0.0 TH/MM3 CBC Comment DIFF FINAL Differential Comment Sodium Level 137 MEQ/L Potassium Level 4.5 MEQ/L Chloride Level 97 MEQ/L Carbon Dioxide Level 32.1 MEQ/L Anion Gap 8 MEQ/L Blood Urea Nitrogen 52 MG/DL Creatinine 1.55 MG/DL Estimat Glomerular Filtration 32 ML/MIN Rate Random Glucose 121 MG/DL Calcium Level 8.6 MG/DL Administered Medications Medications (Trade) Dose Ordered Sig/Andree Route PRN Reason Start Time Stop Time Status Last Admin Dose Admin Ferrous Sulfate (Ferrous Sulfate) 325 mg BID PO 10/18/16 21:00 10/24/16 08:23 Metolazone (Zaroxolyn) 5 mg DAILY PO 10/19/16 09:00 10/24/16 08:23 Pravastatin Sodium (Pravachol) 20 mg DAILY PO 10/19/16 09:00 10/24/16 08:23 Ramipril (Altace) 2.5 mg DAILY PO 10/19/16 09:00 10/24/16 08:23 Sertraline HCl (Zoloft) 50 mg DAILY PO 10/19/16 09:00 10/24/16 08:22 Spironolactone (Aldactone) 25 mg BIDPC PO 10/18/16 18:00 10/24/16 08:24 Torsemide (Demadex) 40 mg DAILY PO 10/19/16 09:00 10/24/16 08:23 Sodium Chloride (NS Flush) 2 ml BID IV FLUSH 10/18/16 21:00 10/24/16 08:24 Docusate Sodium (Colace) 100 mg Q12H PO 10/18/16 16:00 10/23/16 16:38 Guaifenesin (Mucinex Er) 600 mg BID PO 10/18/16 21:00 10/24/16 08:22 Acetaminophen/ Hydrocodone Bitart ([place] 5-325 Mg) 1 tab Q4H PRN PO pain 1-10 10/20/16 09:30 10/20/16 22:14 Objective Remarks GENERAL: Elderly female, sitting up in chair. SKIN: Warm and dry. HEAD: Normocephalic. EYES: No injection or drainage. NECK: Supple, trachea midline. CARDIOVASCULAR: Regular rate and rhythm RESPIRATORY: Breath sounds equal bilaterally. No accessory muscle use. On 2L supplemental O2. GASTROINTESTINAL: Abdomen soft, non-tender, nondistended. EXTREMITIES: No cyanosis NEUROLOGICAL: awake and alert, normal speech. moving extremities. Assessment/Plan Problem List: (1) Anemia due to blood loss Status: Acute Plan: --Anemia with microcytosis consistent with iron deficiency anemia. ++occult GI bleed.-->[facility] to do EGD outpatient --history of bleeding AV malformation. --had an enteroscopy with ablation of the AV malformation in May of 2016 ( done in [place]) --has been getting periodic transfusions as well as Venofer iron infusion. (2) Follicular lymphoma Status: Acute Plan: --History of follicular lymphoma, stage IV diagnosed in 2006. Bone marrow was involved. --was treated with Rituxan CVP followed by two years of rituxan maintenance therapy completed in 2009. --last CT scan did not show any recurrent disease. (3) CHF exacerbation Status: Acute Plan: --followed by cardiology ([facility]) --sees Dr. Zamudio outpatient Assessment 81y/o female admitted with dyspnea and bilateral lower extremity edema. Hematology consulted for anemia. history of non-Hodgkin's lymphoma, anemia due to GI bleed and congestive heart failure Chronic obstructive pulmonary disease. Chronic atrial fibrillation. Osteoarthritis. Pulmonary hypertension. Aortic insufficiency History of GI bleed due to AV malformation and gastric ulcer. Mitral regurgitation Plan 1. monitor CBC 2. ok from hematology standpoint to be discharged. Patient advised to call and make follow up appointment within one week. Attending Statement The exam, history, and the medical decision-making described in the above note were completed with the assistance of the mid-level provider. I reviewed and agree with the findings presented. I attest that I had a [id number] encounter with the patient on the same day, and personally performed and documented my assessment and findings in the medical record.(Late entry)Saw pt in the morning and discussed with her daughter. Pt does not want hospice.Her Hgb is stable. She has decided to stop Eliquis. Told her to f/u with GI for management of GI bleed. Told her to f/u hematology clinic to monitor CBC and she will need periodic iron infusion if she continues to have GI bleed. Problem Qualifiers (1) CHF exacerbation: Qualified Code: I50.33 - Acute on chronic diastolic congestive heart failure Dorys Knapp Oct 24, 2016 11:06 Pietro Conrad MD Oct 24, 2016 17:48
[2016-10-24] MEDS ORDERED: DOCU1CAP39 PO (11:29)
[2016-10-24] MEDS ORDERED: BUDE.5I NEB (11:29)
--- NOTE | 2016-10-24 11:32 | HHI.DCPOC ---
Discharge Care Plan Diagnosis: (1) Atrial fibrillation (2) CHF exacerbation (3) GI (gastrointestinal bleed) (4) Anemia (5) COPD (chronic obstructive pulmonary disease) Goals to Promote Your Health * To prevent worsening of your condition and complications * To maintain your health at the optimal level Directions to Meet Your Goals Take your medications as prescribed Follow your dietary instruction Follow activity as directed Keep your appointments as scheduled Take your immunizations and boosters as scheduled If your symptoms worsen call your PCP, if no PCP go to Urgent Care Center or Emergency Room Smoking is Dangerous to Your Health. Avoid second hand smoke Call the 24-hour hour crisis hotline for domestic abuse at Lina Elmore MD Oct 24, 2016 11:32
--- NOTE | 2016-10-24 11:32 | HHI.DS ---
Discharge Summary Admission Date Oct 18, 2016 at 15:21 Discharge Date: Oct 24, 2016 Admitting Diagnosis CHF exacerbation, symptomatic anemia (1) CHF exacerbation ICD Code: I50.9 Diagnosis: Principal (2) Iron deficiency anemia ICD Code: D50.9 Diagnosis: Principal (3) Atrial flutter ICD Code: I48.92 Diagnosis: Secondary (4) COPD (chronic obstructive pulmonary disease) ICD Code: J44.9 Diagnosis: Secondary (5) Anticoagulated ICD Code: Z79.01 Diagnosis: Principal (6) GI (gastrointestinal bleed) ICD Code: K92.2 Diagnosis: Principal (7) MARIA G (acute kidney injury) ICD Code: N17.9 Diagnosis: Secondary Procedures See hospital course for further information. Brief History - From Admission Patient is a pleasant 81-year-old female who has a past medical history of COPD, CHF, iron deficiency anemia, lymphoma, A. fib A flutter on Eliquis who came into the hospital with complaints of increasing bilateral lower extremity edema and shortness of breath. Patient states that she was just recently admitted in August with the same symptoms of worsening edema and shortness of breath. She states that she's been having on and off edema and is on diuretics. However, since last she has increasing shortness of breath and bilateral lower extremity edema that she was told by her operational communication chief Dr. Roger to increase her dose of diuretics. Patient has been on an increased dose but states that is not helping her. She saw Dr. Roger this morning and was told to come to the hospital for further evaluation. Patient recently has undergone cardiac catheterization 09/22/16 in [place] complicated by hematoma in the left thigh area, ultrasound Doppler was negative. She is also being followed by Dr. Conrad and had received blood transfusions 2 in the first week of September, completed 5 doses of IV iron transfusions. Patient states that she has some dark stools but is unknown to her whether she has noted any blood in the stool or not because she is on iron transfusions. Patient has A. fib a flutter on Eliquis 2.5 mg twice a day. States she previously have some gastric bleeding and had an EGD and colonoscopy last year that showed she has some ?bleeding/ulceration. Patient also complains of some chest pressure, dizziness, weakness and headaches. Denies any nausea, vomiting, diarrhea, constipation. Denies any hematuria, dysuria, abdominal cramping or pain. Denies cough, hematemesis, hemoptysis, hematochezia. Denies any fevers, chills, cough, diaphoresis. Patient's H&H 6.7/21.9, underlying microcytic anemia, iron deficiency anemia. Chest x-ray showed mild congestive heart failure. BNP 735. CBC/BMP: 10/23/16 1250 10/23/16 1250 Significant Findings Laboratory Tests Test 10/22/16 10/23/16 09:00 12:50 Red Blood Count 3.46 MIL/MM3 3.52 MIL/MM3 (4.00-5.30) (4.00-5.30) Hemoglobin 9.3 GM/DL 9.0 GM/DL (11.6-15.3) (11.6-15.3) Hematocrit 27.7 % 28.3 % (35.0-46.0) (35.0-46.0) Mean Corpuscular Hemoglobin 26.8 PG 25.5 PG (27.0-34.0) (27.0-34.0) Red Cell Distribution Width 17.9 % 17.8 % (11.6-17.2) (11.6-17.2) Neutrophils (%) (Auto) 78.4 % 71.8 % (16.0-70.0) (16.0-70.0) Monocytes (%) (Auto) 8.2 % (0.0-8.0) 12.5 % (0.0-8.0) Lymphocytes # (Auto) 0.7 TH/MM3 0.9 TH/MM3 (1.0-4.8) (1.0-4.8) Mean Corpuscular Hemoglobin 31.6 % Concent (32.0-36.0) Chloride Level 97 MEQ/L (98-107) Carbon Dioxide Level 32.1 MEQ/L (21.0-32.0) Blood Urea Nitrogen 52 MG/DL (7-18) Creatinine 1.55 MG/DL (0.50-1.00) Estimat Glomerular Filtration 32 ML/MIN (>89) Rate Random Glucose 121 MG/DL (74-106) Imaging Last Impressions Chest CT 10/20/16 0000 Signed Impressions: Service Date/Time: Thursday, October 20, 2016 14:54 - CONCLUSION: Small bilateral pleural effusions and bibasilar atelectasis and/or infiltrate. Berenice Soto MD Chest X-Ray 10/18/16 0000 Signed Impressions: Service Date/Time: Tuesday, October 18, 2016 13:34 - CONCLUSION: Mild congestive failure. Blair Gamble MD FACR PE at Discharge GENERAL:in NAD CARDIOVASCULAR: Regular rate and rhythm without murmurs, gallops, or rubs. RESPIRATORY: Breath sounds equal bilaterally. No accessory muscle use. GASTROINTESTINAL: Abdomen soft, non-tender, nondistended. MUSCULOSKELETAL: No cyanosis, or edema. BACK: Nontender without obvious deformity. No CVA tenderness. Pt update on day of discharge Follow-up for respiratory failure Patient stated that she is back to her baseline. She denies any shortness of breathing. Her anxious to go home. Her daughters at the bedside. Patient has no complaints. Deny any GI bleeding. Hospital Course Acute Exacerbation of Chronic diastolic congestive Heart failure -Patient was initially treated with Lasix. Hold home medication was also restarted the torsemide,spirolactone and metolazone. -She was given supplemental oxygen and patient also had oxygen at a baseline. -Her mud jack operator Dr. nelson was consulted throughout the hospital course. -Later during the hospital course patient had a CT scan of chest shows small amount of pleural effusion. -At the time of discharge patient was back to her baseline. Atypical chest pain -Most likely secondary to degenerative exacerbation. - Cardiac enzymes negative. -resolved. COPD with possible Acute exacerbation -Patient was put on on Bronchodilator PRN, Mucolytic, incentive spirometry. -This seemed to resolve quickly. Atrial Fibrillation on chronic anticoagulation -rate controlled. -mud jack operator recommend eliquis but patient declined due to anemia from most likely GI source. GI and geographical historian also do not recommend eliquis which was d/ c by them. -i explained to patient and her daughter at the bedside the risk, benefits and side effects of eliquis. Patient and daughter understood and DO NOT want to restart eliquis. She understands that this does increase her risk of CVA. -Per GI patient to follow-up with her outpatient emr trainer. Anemia -Due to anemia patient had Transfusions with packed red blood cells, and asked for Iron IV. -Her hemoglobin was stable. -most likely GI source along with being a non-eloquent. + Hemoccult stool. -[employer] Field Technician and GI was consulted due to this. Acute on chronic renal failure -stable -avoid nephrotoxins. Lymphoma - branding specialist following. Pt Condition on Discharge: Stable Discharge Disposition: Hospice/ Home Discharge Time: <= 30 minutes Discharge Instructions DIET: Follow Instructions for: Heart Healthy Diet Activities you can perform: Regular-No Restrictions Follow up Referrals: Cardiology - 2 Weeks Gastroenterology - 2 Weeks PCP Follow-up - 1 Week New Medications: Budesonide Neb (Pulmicort Respules) 0.5 Mg/2 Ml Neb 0.5 MG NEB Q12HR NEB copd #1 Ref 0 VIAL Docusate Sodium (Dok) 100 Mg Cap 100 MG PO Q12H constipation #30 Ref 0 CAP Continued Medications: Ferrous Sulfate (Ferrous Sulfate) 325 Mg Tab 325 MG PO BID Nutritional Supplement #30 Ref 0 TAB Metolazone (Metolazone) 5 Mg Tab 5 MG PO DAILY #30 Ref 0 TAB Omeprazole (Omeprazole) 20 Mg Tab 20 MG PO EVERY OTHER DAY #30 Ref 0 TAB Pravastatin (Pravastatin) 20 Mg Tab 20 MG PO DAILY Cholesterol Management #30 Ref 0 TAB Ramipril (Ramipril) 2.5 Mg Cap 2.5 MG PO DAILY #30 Ref 0 CAP Sertraline (Sertraline) 50 Mg Tab 50 MG PO DAILY #30 Ref 0 TAB Spironolactone (Spironolactone) 25 Mg Tab 25 MG PO BIDPC #60 Ref 0 TAB Torsemide (Torsemide) 20 Mg Tab 40 MG PO DAILY #60 Ref 0 TAB Discontinued Medications: Apixaban (Eliquis) 2.5 Mg Tab 2.5 MG PO BID Blood Clot Prevention Ref 0 TAB Lina Elmore MD Oct 24, 2016 11:32
[2016-10-24 12:00] VITALS: BP 111/53; PULSE 61; RESP 18; TEMP 97.7; O2SAT 96
[2016-10-24] MEDS ORDERED: SODIUM CHLORIDE 0.9% FLUSH 10 ML FLUSH IV FLUSH PRN (12:00)
== END 2016-10-24 12:46 | disposition home or self-care (01) | DRG 292 ==
LOC: NEPC 12:49 → NEDA 15:21 → N04B 19:02
PROVIDERS: ADMIT Family Medicine; ATTEND Family Medicine
PROC: 30233N1 Transfusion of Nonautologous Red Blood Cells into Peripheral Vein, Percutaneous Approach (ICD-10-PCS; principal; 2016-10-18)
DX: I50.33 Acute on chronic diastolic (congestive) heart failure (principal); I13.0 Hypertensive heart and chronic kidney disease with heart failure and stage 1 through stage 4 chronic kidney disease, or unspecified chronic kidney disease; N17.9 Acute kidney failure, unspecified; I27.2 Other secondary pulmonary hypertension; I48.92 Unspecified atrial flutter; K92.2 Gastrointestinal hemorrhage, unspecified; Z99.81 Dependence on supplemental oxygen; J44.9 Chronic obstructive pulmonary disease, unspecified; I48.2 Chronic atrial fibrillation; N18.9 Chronic kidney disease, unspecified; I34.0 Nonrheumatic mitral (valve) insufficiency; K31.819 Angiodysplasia of stomach and duodenum without bleeding; D50.9 Iron deficiency anemia, unspecified; Z95.0 Presence of cardiac pacemaker; Z79.01 Long term (current) use of anticoagulants; M19.90 Unspecified osteoarthritis, unspecified site; K59.00 Constipation, unspecified; Z85.72 Personal history of non-Hodgkin lymphomas
CPT/HCPCS: 36415; 36430; 36591; 71010; 71250; 80048; 80053; 81001; 82272; 82728; 83540; 83550; 83735; 83880; 84484; 85025; 85027; 85044; 85610; 85730; 86850; 86900; 86901; 86902; 86920; 86922; 93005; 94150; 94640; 94664; 96361; 96374; J1642; J1756; J1940; J7050; J7626; J7644; P9016

== ENCOUNTER → 2017-05-30 | Outpatient (CLI) | payer MEDICARE, OTHER ==
[~2017-05-30] MED LIST changes: -ALBU0.08 NEB; -APIX2.5T PO; +BUDE.5I NEB; +DOCU1CAP39 PO; -OMEP20TA PO; +OMEP20TA93 PO
[2017-05-30 15:04] LABS: GLUCOSE,URINE NEG (NEG); KETONE, URINE NEG (NEG); NITRITE,URINE NEG (NEG)
[2017-05-30 15:07] LABS: BLOOD, URINE TRACE (NEG)
[2017-05-30 15:08] LABS: URINE COLOR YELLOW (YELLW/STRAW)
[2017-05-30 15:09] LABS: COMMENT (UR) CULT NOT INDICATED; RBC, URINE 0-3 /hpf (0-3); SQUAMOUS EPITHELIAL CELL URINE 0-5 /hpf (0-5); WBC, URINE 0-2 /hpf (0-5)
[2017-05-30 15:12] LABS: CHLORIDE 105 MEQ/L (98-107); POTASSIUM 4.3 MEQ/L (3.5-5.1); SODIUM (NA) 138 MEQ/L (136-145)
[2017-05-30 15:13] LABS: AUTOMATED NEUTROPHIL # 5.2 TH/MM3 (1.8-7.7); BASOPHIL % 0.5 % (0.0-2.0); EOSINOPHIL # 0.1 TH/MM3 (0-0.4); HEMATOCRIT 35.2 % (35.0-46.0); LYMPH % 12.3 % (9.0-44.0); LYMPHOCYTE # 0.8 TH/MM3 (1.0-4.8); MEAN CELL VOLUME 76.6 FL (80.0-100.0); MEAN CORPUSCULAR HEMOGLOBIN 23.5 PG (27.0-34.0); MEAN CORPUSCULAR HGB CONC 30.6 % (32.0-36.0); MONO % 8.1 % (0.0-8.0); NEUT % 78.1 % (16.0-70.0); PLATELET COUNT 141 TH/MM3 (150-450); RED BLOOD COUNT 4.59 MIL/MM3 (4.00-5.30); RED CELL DISTRIBUTION WIDTH 15.5 % (11.6-17.2); WHITE BLOOD COUNT 6.6 TH/MM3 (4.0-11.0)
[2017-05-30 15:16] LABS: ANION GAP 9 MEQ/L (5-15); BICARBONATE 24.1 MEQ/L (21.0-32.0); BLOOD UREA NITROGEN 28 MG/DL (7-18)
[2017-05-30 15:19] LABS: ALT (GPT) 12 U/L (10-53); AST (GOT) 8 U/L (15-37); GLOMERULAR FILTRATION RATE 39 ML/MIN (>89)
[2017-05-30 15:21] LABS: TOTAL BILIRUBIN ADULT 0.9 MG/DL (0.2-1.0)
[2017-05-30 15:22] LABS: ALKALINE PHOSPHATASE 114 U/L (45-117); HEMO FLAGS AUTO DIFF
[2017-05-30 15:56] LABS: OVALOCYTES 1+ (NORMAL); SCAN/DIFF AUTO DIFF CONFIRMED
== END ==
LOC: PLAB 14:08
PROVIDERS: ATTEND Nurse Practitioner Family
DX: R50.9 Fever, unspecified (principal); R53.1 Weakness; R82.90 Unspecified abnormal findings in urine
CPT/HCPCS: 36415; 80053; 81001; 85025; 87086